=== PATIENT | female | born 1935 | race Caucasian/White ===

== ENCOUNTER → 2016-10-14 | Outpatient (CLI) | payer OTHER ==
[~2016-10-14] MED LIST: ATOR-26 PO; CHOL100010 PO; CLOP1TAB15 PO; CYCL0.052 OP; GLC500 PO; GUAI1TAB69 PO; MAGN500T15 PO; PRLSR20 PO; PYRI100T4 PO
[2016-10-14 13:08] LABS: BASO % 0.5 %; BASO ABS # 0.03 K/uL (0-0.2); COMPLETE YES; EOS % 4.5 %; IG% 0.2 %; LYMPH % 21.8 %; LYMPH ABS # 1.37 K/uL (1.2-3.4); MEAN CELL VOLUME 90.7 fL (80-100); MEAN CORPUSCULAR HEMOGLOBIN 30.6 pg (25-34); MEAN CORPUSCULAR HGB CONC 33.8 g/dl (32-36); MEAN PLATELET VOLUME 9.9 fL (7.4-10.4); MONO % 9.6 %; NEUT % 63.4 %; PLATELET COUNT 242 K/uL (130-400); RED BLOOD COUNT 4.41 M/uL (4.2-5.4); WHITE BLOOD COUNT 6.28 K/uL (4.8-10.8)
--- NOTE | 2016-10-14 13:20 | DIAGNOSTIC IMAGING REPORT ---
CHEST 2 VIEWS ROUTINE CLINICAL HISTORY: Cough. Cardiomyopathy. COMPARISON STUDY: Chest radiograph October 19, 2015. FINDINGS: A left subclavian pacer/AICD is unchanged in position. Cardiomediastinal silhouette is normal. There is no evidence of pulmonary edema. There is no consolidation. No pneumothorax or pleural effusion is present. IMPRESSION: No acute cardiopulmonary findings. Electronically signed by: Ra Vega M.D. 10/14/2016 1:19 PM Dictated Date/Time: 10/14/2016 1:18 PM
[2016-10-14 13:21] LABS: BLOOD UREA NITROGEN 16 mg/dl (7-18); BUN/CREATININE RATIO 15.9 (10-20); CALCIUM 9.4 mg/dl (8.5-10.1); CARBON DIOXIDE 33 mmol/L (21-32); CHLORIDE 103 mmol/L (98-107); GLUCOSE 144 mg/dl (70-99); SODIUM 140 mmol/L (136-145)
[2016-10-14 13:31] LABS: CKMB/CK RATIO 1.3 (0-3.0)
== END | disposition home or self-care (01) ==
LOC: C.LAB 12:22
DX: R05 Cough (principal); I42.9 Cardiomyopathy, unspecified; I51.7 Cardiomegaly; I25.2 Old myocardial infarction; R94.31 Abnormal electrocardiogram [ECG] [EKG]

== ENCOUNTER → 2017-05-08 | Outpatient (CLI) | payer OTHER ==
[2017-05-08 09:37] LABS: BASO % 0.5 %; BASO ABS # 0.03 K/uL (0-0.2); COMPLETE YES; EOS % 2.3 %; HEMATOCRIT 40.2 % (37-47); IG% 0.2 %; LYMPH % 22.8 %; LYMPH ABS # 1.37 K/uL (1.2-3.4); MEAN CELL VOLUME 93.9 fL (80-100); MEAN CORPUSCULAR HGB CONC 34.1 g/dl (32-36); MONO % 8.5 %; NEUT % 65.7 %; PLATELET COUNT 246 K/uL (130-400); RED BLOOD COUNT 4.28 M/uL (4.2-5.4); WHITE BLOOD COUNT 6.01 K/uL (4.8-10.8)
[2017-05-08 10:09] LABS: ESTIMATED AVERAGE GLUCOSE 223 mg/dl; HA1C FLAG Normal (Normal)
[2017-05-08 10:15] LABS: ALT/SGPT 23 U/L (12-78); AST/SGOT 18 U/L (15-37); BLOOD UREA NITROGEN 16 mg/dl (7-18); BUN/CREATININE RATIO 15.4 (10-20); CALCIUM 9.6 mg/dl (8.5-10.1); CARBON DIOXIDE 29 mmol/L (21-32); CHLORIDE 105 mmol/L (98-107); CHOLESTEROL 186 mg/dl (0-200); CHOLESTEROL/HDL RATIO 2.5; CREATININE 1.01 mg/dl (0.60-1.20); FERRITIN 62.4 ng/ml (8.0-388.0); GLUCOSE 171 mg/dl (70-99); HDL CHOLESTEROL 74 mg/dl; MAGNESIUM 2.1 mg/dl (1.8-2.4); POTASSIUM 3.6 mmol/L (3.5-5.1); SODIUM 140 mmol/L (136-145)
[2017-05-08 10:20] LABS: LDL CHOLESTEROL CALCULATED 83 mg/dl; THYROID STIMULATING HORMONE 0.997 uIu/ml (0.300-4.500); TRIGLYCERIDES 145 mg/dl (0-150); VERY LOW DENSITY LIPOPROT CALC 29 mg/dl
[2017-05-08 10:28] LABS: LYME DISEASE AB IGG NEG (NEG); LYME DISEASE AB IGM NEG (NEG)
--- NOTE | 2017-05-12 13:13 | CODING QUERY MEDICAL NECESSITY ---
SUPPORTING DIAGNOSIS NEEDED A supporting diagnosis is required for the test/procedure performed on this patient in order for us to be reimbursed by the patient's insurance. Please provide a supporting diagnosis for the following test/procedure listed below next to the test name along with your signature. *If there is no additional diagnosis for this patient that would support the following test/procedure please document that below next to the test/procedure. Test(s)/Procedure(s) that require a supporting diagnosis: * VITAMIN B12 DIAGNOSIS: * VITAMIN D, 25-HYDROXY DIAGNOSIS: Provider Signature: Date: Thank you Desi Ziegler [employer] Once completed, please kindly fax back to [phone] For questions please call [phone]
== END | disposition home or self-care (01) ==
LOC: C.LAB 08:53
DX: M19.90 Unspecified osteoarthritis, unspecified site (principal); R73.9 Hyperglycemia, unspecified; R53.83 Other fatigue

== ENCOUNTER → 2017-08-11 | Outpatient (CLI) | payer OTHER ==
[~2017-08-11] MED LIST changes: +ACET300T2 PO; +CHOL2000 PO; +CLOP1TAB5 PO; +CLOT1CRE80 EXT; +DEXT30TA7 PO; +GLIP2.5T11 PO; +POLYSOL4 OPB; +PRD/1 PO; +SERT50TA PO
[2017-08-11 15:28] LABS: HEMATOCRIT 41.3 % (37-47); HEMOGLOBIN 13.6 g/dL (12.0-16.0); MEAN CELL VOLUME 96.9 fL (80-100); MEAN CORPUSCULAR HEMOGLOBIN 31.9 pg (25-34); MEAN CORPUSCULAR HGB CONC 32.9 g/dl (32-36); MEAN PLATELET VOLUME 10.3 fL (7.4-10.4); PLATELET COUNT 267 K/uL (130-400); RED CELL DISTRIBUTION WIDTH CV 13.9 % (11.5-14.5); RED CELL DISTRIBUTION WIDTH SD 49.5 fL (36.4-46.3); WHITE BLOOD COUNT 6.23 K/uL (4.8-10.8)
--- NOTE | 2017-08-11 15:28 | DIAGNOSTIC IMAGING REPORT ---
CHEST 2 VIEWS ROUTINE HISTORY: 82 years-old Female PRE OP TESTING preoperative testing. No acute chest complaints. COMPARISON: Chest radiograph 10/14/2016 TECHNIQUE: PA and lateral views of the chest FINDINGS: Cardiomediastinal and hilar silhouettes are within normal limits. Atherosclerosis of the aorta. Left subclavian pacer/AICD is noted with leads overlying the right heart. Lungs are mildly hyperinflated. There is no pneumothorax, pleural effusion, focal airspace consolidation or overt pulmonary edema. The bones of the chest appear grossly intact. IMPRESSION: No acute process. The above report was generated using voice recognition software. It may contain grammatical, syntax or spelling errors. Electronically signed by: Virgilio Alvarez M.D. 08/11/2017 3:26 PM Dictated Date/Time: 08/11/2017 3:25 PM
[2017-08-11 15:33] LABS: PTT PATIENT 26.1 SECONDS (21.0-31.0)
== END | disposition home or self-care (01) ==
LOC: C.RAD 14:24
PROVIDERS: ATTEND Podiatrist Foot & Ankle Surgery
DX: Z01.810 Encounter for preprocedural cardiovascular examination (principal); Z01.818 Encounter for other preprocedural examination; Z01.812 Encounter for preprocedural laboratory examination

== ENCOUNTER → 2017-08-15 | Day surgery (SDC) | payer OTHER ==
[2017-08-14 11:31] VITALS: Ht 160 cm
[~2017-08-15] VITALS: Ht 160 cm
[~2017-08-15] MED LIST changes: +ATROPINE SULFATE 0.1 MG/ML 5ML SYR IV PRN; +BUPIVACAINE 0.5 % 5 MG/1 ML MPF 30ML VIAL ONE; +CEFAZOLIN 1000MG IV PUSH 5 ML IV SCH; -CHOL100010 PO; -CLOP1TAB15 PO; +FENTANYL CITRATE INJ 50 MCG/1 ML 2 ML VIAL IV PRN; +FENTANYL CITRATE INJ 50 MCG/1 ML 2 ML VIAL ONE; -GLC500 PO; -GUAI1TAB69 PO; +LACTATED RINGER'S 1000ML 1,000 ML IV SCH; +LIDOCAINE HCL 1% 20 ML VIAL ONE; +LIDOCAINE HCL 2% 2 ML VIAL (20MG/ML) ONE; -MAGN500T15 PO; +ONDANSETRON INJ 2 MG/ML 2 ML VIAL IV PRN; +PROPOFOL IV EMULSION 10 MG/ML 20 ML VIAL IV ONE; -PYRI100T4 PO
--- NOTE | 2017-08-15 08:54 | History & Physical Bridge - SC ---
H&P Re-Evaluation Bridge Note: I have examined the patient, reviewed the History & Physical and in the interval since the performance of the History & Physical I have noted the following changes of clinical significance: No changes noted
--- NOTE | 2017-08-15 09:30 | [facility] Post Operative Brief Note ---
Immediate Operative Summary Operative Date Aug 15, 2017. 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 Cole Registered Vascular Technologist (Rvt) Surgeon(s) none Estimated Blood Loss 2 mL Findings Consistent with Post-Op Diagnosis Specimens A: Second toe, right foot Drains None Anesthesia Type MAC Complication(s) none Disposition Accompanied Pt To Recover: no
--- NOTE | 2017-08-15 09:56 | [facility] Operative Report ---
Operative Report Operative Date Aug 15, 2017. 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 Cole Nursery Rn Surgeon(s) none Estimated Blood Loss 2ML Findings Consistent with operative report Specimens A: Second toe, right foot Anesthesia MAC with local Disposition Recovery Room / PACU Indications This is an 82 year old female patient with significant past medical history of chronic ulcer to the medial aspect of her 2nd digit right foot. Patient has had this wound for over 1 month now. She has attempted conservative treatment of this wound, consisting of offloading, and daily dressing changes by wound care, which has failed. She presented to the office last week with increased pain and worsening wound condition. Examination demonstrated the head of the proximal phalanx of the 2nd digit right foot was exposed and protruding from the wound bed. Radiographic evaluation demonstrated no signs of acute osteomyelitis, however a mild hallux valgus deformity was present and appears to be the primary cause of the wound. After discussion with the patient, including patient goals to return to ambulation as quickly as possible, recommend patient undergo 2nd digit amputation right foot. Patient was evaluated by her primary care physician and her rubber calender helper for medical clearance. The preoperative indications, planned procedure, possible benefits, risks, complications, and anticipated healing time and management were discussed in detail with the patient. She understands and elects to proceed with surgery at this time. Description of Procedure The patient was transported to the operating room via cart and placed on the operating room table in the supine position. Final verification of patient, surgery, and limb designation was performed via the time out procedure. A pneumatic ankle tourniquet was applied to the right ankle. The right limb was them scrubbed, prepped and draped in the usual aseptic manner. MAC anesthesia was then initiated by the anesthesia team. An eschmarch bandage was used to exsanguinate the limb and the pneumatic ankle tourniquet was inflated to 250 mmHg. A preop injection of lidocaine-marcaine was administered about the operative site and the procedure began as follows: Attention was directed to the 2nd digit right foot where a fish mouth type incision was made in the skin encompassing the digit. This was made down to the level of the bone. Care was taken to identify and retract all vital neurovascular structures. The proximal phalanx was then freed of all of its soft tissue and ligamentous attachments. At this time the 2nd digit was able to be complete resected in toto and passed from the operative field. This was sent to pathology as specimen. The wound was then flushed with copious amounts of normal sterile saline. Skin closure was then performed in standard fashion using 3-0 nylon sutures. A post-operative dressing consisting of adaptik, 4x4 gauze, tony and an laura wrap were applied. At this time, the pneumatic ankle tourniquet was deflated and prompt hyperemic response was noted to the remaining digits of the right foot. Patient tolerated the procedure and anesthesia well. I attest to the content of the Intraoperative Record and any orders documented therein. Any exceptions are noted below.
--- NOTE | 2017-08-15 10:08 | Discharge Instructions-SurgCtr ---
Discharge Instructions Date of Service Aug 15, 2017. Visit Reason for Visit: Right Foot Non Pressure Chronic Ulcer Discharge Discharge Diagnosis / Problem: Right 2nd digit amputation Discharge Goals Goal(s): Decrease discomfort, Improve function Activity Recommendations Activity Limitations: as noted below Lifting Limitations: until after follow-up appointment Exercise/Sports Limitations: until after follow-up appointment Shower/Bathe: keep incision dry Weightbearing Status: Right partial Anesthesia . Post Anesthesia Instructions: If you have had General Anesthesia or IV Sedation: * Do not drive today. * Resume driving when surgeon permits. * Do not make important decisions or sign legal documents today. * Call surgeon for: 1. Temperature elevations greater than 101 degrees F. 2. Uncontrollable pain. 3. Excessive bleeding. 4. Persistent nausea and vomiting. 5. Medication intolerance (nausea, vomiting or rash). * For nausea and vomiting use only clear liquids such as: tea, soda, bouillon until nausea subsides, then gradually increase diet as tolerated. * If you have any concerns or questions, call your surgeon's office. If physician is unavailable and it is an emergency, call 911 or go to the nearest emergency room. . Instructions / Follow-Up Instructions / Follow-Up Follow-up in office on Monday08/18/17 Diet Recommendations Home Diet: resume previous diet Procedures Procedures Performed: Right Second Digit Toe Amputation Pending Studies Studies pending at discharge: no Medical Emergencies . Who to Call and When: Medical Emergencies: If at any time you feel your situation is an emergency, please call 911 immediately. . Non-Emergent Contact Non-Emergency issues call your: Primary Care Provider . . "Provider Documentation" section prepared by Lesia Cole. .
--- NOTE | 2017-08-15 10:32 | Anesthesia Progress Nt - [facility] ---
Anesthesia Post Op Note Date & Time Aug 15, 2017 at 10:32 Vital Signs Pain Intensity: 0 Vital Signs Past 12 Hours Date Time Temp Pulse Resp B/P (MAP) Pulse Ox O2 Delivery O2 Flow Rate FiO2 08/15/17 09:36 36.3 60 16 137/74 (95) 97 Room Air 08/15/17 07:44 36.5 65 16 132/78 (96) 96 Room Air Notes Mental Status: alert / awake / arousable, participated in evaluation Pt Amnestic to Procedure: Yes Nausea / Vomiting: adequately controlled Pain: adequately controlled Airway Patency, RR, SpO2: stable & adequate BP & HR: stable & adequate Hydration State: stable & adequate Anesthetic Complications: no major complications apparent
[2017-08-15 11:00] VITALS: BP 144/70; PULSE 60; TEMP 36.8; O2SAT 97
--- NOTE | 2017-08-16 06:35 | DIAGNOSTIC IMAGING REPORT ---
RIGHT FOOT RADIOGRAPHS CLINICAL HISTORY: Right 2nd digit amputation COMPARISON STUDY: Right foot radiograph October 12, 2015. FINDINGS: There are are findings consistent with amputation of the second toe at the level of the proximal phalanx. No unexpected radiopaque foreign bodies present. There is a healing fracture with callus formation of the mid shaft of the right third metatarsal. 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 Extensive vascular calcification is present. A small plantar calcaneal spurring. IMPRESSION: 1. Findings consistent with right second digit amputation. 2. Healing fracture of the midshaft of the right third metatarsal. Electronically signed by: Ra Vega M.D. 08/16/2017 6:34 AM Dictated Date/Time: 08/16/2017 6:31 AM
== END | disposition home or self-care (01) ==
LOC: X.SURG 07:27
PROVIDERS: ATTEND Podiatrist Foot & Ankle Surgery
DX: E11.621 Type 2 diabetes mellitus with foot ulcer (principal); L97.519 Non-pressure chronic ulcer of other part of right foot with unspecified severity; M86.171 Other acute osteomyelitis, right ankle and foot; S92.511A Displaced fracture of proximal phalanx of right lesser toe(s), initial encounter for closed fracture; X58.XXXA Exposure to other specified factors, initial encounter; E78.00 Pure hypercholesterolemia, unspecified; I10 Essential (primary) hypertension; Z85.828 Personal history of other malignant neoplasm of skin; Z79.52 Long term (current) use of systemic steroids; Z83.3 Family history of diabetes mellitus

== ENCOUNTER → 2017-09-05 | Outpatient (CLI) | payer OTHER ==
[~2017-09-05] MED LIST changes: -ACET300T2 PO; -ATROPINE SULFATE 0.1 MG/ML 5ML SYR IV PRN; -BUPIVACAINE 0.5 % 5 MG/1 ML MPF 30ML VIAL ONE; -CEFAZOLIN 1000MG IV PUSH 5 ML IV SCH; -FENTANYL CITRATE INJ 50 MCG/1 ML 2 ML VIAL IV PRN; -FENTANYL CITRATE INJ 50 MCG/1 ML 2 ML VIAL ONE; -LACTATED RINGER'S 1000ML 1,000 ML IV SCH; -LIDOCAINE HCL 1% 20 ML VIAL ONE; -LIDOCAINE HCL 2% 2 ML VIAL (20MG/ML) ONE; -ONDANSETRON INJ 2 MG/ML 2 ML VIAL IV PRN; -PROPOFOL IV EMULSION 10 MG/ML 20 ML VIAL IV ONE
[2017-09-05 16:43] LABS: BASO % 0.5 %; BASO ABS # 0.04 K/uL (0-0.2); EOS % 1.1 %; HEMATOCRIT 34.9 % (37-47); IG# 0.02 K/uL (0.00-0.02); LYMPH % 13.9 %; LYMPH ABS # 1.22 K/uL (1.2-3.4); MEAN CELL VOLUME 93.8 fL (80-100); MEAN CORPUSCULAR HEMOGLOBIN 32.3 pg (25-34); MEAN CORPUSCULAR HGB CONC 34.4 g/dl (32-36); MONO % 9.1 %; NEUT % 75.2 %; NEUT ABS # 6.61 K/uL (1.4-6.5); PLATELET COUNT 374 K/uL (130-400); RED CELL DISTRIBUTION WIDTH CV 13.4 % (11.5-14.5); RED CELL DISTRIBUTION WIDTH SD 46.1 fL (36.4-46.3); WHITE BLOOD COUNT 8.79 K/uL (4.8-10.8)
[2017-09-05 16:56] LABS: ALT/SGPT 25 U/L (12-78); AST/SGOT 20 U/L (15-37); BLOOD UREA NITROGEN 21 mg/dl (7-18); CALCIUM 8.9 mg/dl (8.5-10.1); CARBON DIOXIDE 27 mmol/L (21-32); CREATININE 1.13 mg/dl (0.60-1.20); GLUCOSE 109 mg/dl (70-99); POTASSIUM 3.7 mmol/L (3.5-5.1); SODIUM 138 mmol/L (136-145); TRANSFERRIN 187 mg/dl (200-360)
[2017-09-06 06:08] LABS: HEMOGLOBIN A1C 6.7 % (4.5-5.6)
== END | disposition home or self-care (01) ==
LOC: C.LABBC 15:03
DX: M19.90 Unspecified osteoarthritis, unspecified site (principal); E03.9 Hypothyroidism, unspecified; E11.9 Type 2 diabetes mellitus without complications; E61.1 Iron deficiency

== ENCOUNTER → 2017-10-05 | Outpatient (CLI) | payer OTHER ==
[2017-10-05 13:42] LABS: BASO % 0.3 %; BASO ABS # 0.02 K/uL (0-0.2); EOS % 1.5 %; HEMATOCRIT 38.2 % (37-47); HEMOGLOBIN 12.7 g/dL (12.0-16.0); IG# 0.01 K/uL (0.00-0.02); LYMPH ABS # 0.84 K/uL (1.2-3.4); MEAN CELL VOLUME 94.6 fL (80-100); MEAN CORPUSCULAR HEMOGLOBIN 31.4 pg (25-34); MEAN CORPUSCULAR HGB CONC 33.2 g/dl (32-36); MEAN PLATELET VOLUME 10.6 fL (7.4-10.4); MONO ABS # 0.58 K/uL (0.11-0.59); NEUT ABS # 4.91 K/uL (1.4-6.5); PLATELET COUNT 230 K/uL (130-400); RED CELL DISTRIBUTION WIDTH CV 14.7 % (11.5-14.5); RED CELL DISTRIBUTION WIDTH SD 50.7 fL (36.4-46.3); WHITE BLOOD COUNT 6.46 K/uL (4.8-10.8)
[2017-10-06 16:04] LABS: ANA SCREEN TC 249X POSITIVE (NEGATIVE)
== END | disposition home or self-care (01) ==
LOC: C.LABBC 11:52
DX: M19.90 Unspecified osteoarthritis, unspecified site (principal)

== ENCOUNTER 2019-09-17 08:49 | Inpatient (IN) ==
[2019-09-17 10:40] LABS: Basophils # (auto) 0.02 K/uL (0-0.2); Basophils % (auto) 0.2 %; Eosinophils # (auto) 0.12 K/uL (0-0.5); Eosinophils % (auto) 1.3 %; Hematocrit (blood only) 42.9 % (37-47); Hemoglobin 14.5 g/dL (12.0-16.0); Immature Granulocytes # (auto) 0.02 K/uL (0.00-0.02); Immature Granulocytes % (auto) 0.2 %; Lymphocytes % (auto) 14.3 %; Mean Corpuscular Hgb Conc 33.8 g/dL (32-36); Mean Corpuscular Volume 94.7 fL (80-100); Mean Platelet Volume 10.2 fL (7.4-10.4); Monocytes # (auto) 0.79 K/uL (0.11-0.59); Monocytes % (auto) 8.7 %; Neutrophils # (auto) 6.82 K/uL (1.4-6.5); Neutrophils % (auto) 75.3 %; Platelet Count 270 K/uL (130-400); RDW Coefficient of Variation 13.5 % (11.5-14.5); RDW Standard Deviation 46.8 fL (36.4-46.3); Red Blood Count 4.53 M/uL (4.2-5.4); White Blood Count 9.07 K/uL (4.8-10.8)
[2019-09-17 10:46] LABS: Prothrombin Time 10.2 Seconds (9.0-12.0)
[2019-09-17 10:51] LABS: Albumin Level 3.5 gm/dl (3.4-5.0); BUN Creatinine Ratio 13.4 (10-20); Blood Urea Nitrogen 13 mg/dl (7-18); Calcium 9.9 mg/dl (8.5-10.1); Carbon Dioxide 28 mmol/L (21-32); Chloride 107 mmol/L (98-107); Creatinine Clr Calc Pharmacy 43.7 ml/min; Est GFR (African American) 64.2; Est GFR (Non-African American) 55.4; Glucose 125 mg/dl (70-99); Potassium 3.3 mmol/L (3.5-5.1); Sodium 141 mmol/L (136-145)
[2019-09-17 10:56] LABS: Alanine Aminotransferase 16 U/L (12-78); Albumin Globulin Ratio 0.8 (0.9-2); Alkaline Phosphatase 113 U/L (45-117); Aspartate Aminotransferase 23 U/L (15-37); Bilirubin,Total 0.5 mg/dl (0.2-1); Creatine Kinase 180 U/L (26-192); Globulin 4.3 gm/dl (2.5-4.0); Total Protein 7.8 gm/dl (6.4-8.2); Troponin I < 0.015 ng/ml (0-0.045)
--- NOTE | 2019-09-17 11:11 | Electrocardiogram Report ---
Test Reason : Blood Pressure : / mmHG Vent. Rate : 064 BPM Atrial Rate : 064 BPM P-R Int : 238 ms QRS Dur : 086 ms QT Int : 430 ms P-R-T Axes : 000 -30 071 degrees QTc Int : 443 ms Poor data quality, interpretation may be adversely affected Atrial-paced rhythm with prolonged AV conduction with Premature atrial complexes with Aberrant conduc tion Left axis deviation Left ventricular hypertrophy with repolarization abnormality Anteroseptal infarct (cited on or before 08-DEC-2014) Abnormal ECG When compared with ECG of 11-AUG-2017 15:33, Aberrant conduction is now Present Confirmed by Breezy Baldwin ([id number]) on 09/17/2019 11:11:02 AM Referred By: Confirmed By:Breezy Baldwin
[2019-09-17] MEDS ORDERED: IOVERSOL 100ml IV PRN (11:13)
--- NOTE | 2019-09-17 11:33 | CT Scan Report ---
HEAD CT NONCONTRAST CT DOSE: HISTORY: fall TECHNIQUE: Multiaxial CT images of the head were performed without the use of intravenous contrast. A utomated exposure control was utilized for this study. A dose lowering technique was utilized adheri ng to the principles of ALARA. Comparison: Head CT 12/09/2014. Findings: The paranasal sinuses and mastoid air cells are clear. The calvarium and skull base are int act. There is no mass, hematoma, midline shift, acute infarct. White matter hypodensity is nonspecifi c but suggestive of microvascular ischemic change. The ventricles and sulci demonstrate mild age-rela forrest involutional changes. Impression: No acute intracranial abnormality. Atrophy and microvascular ischemic changes. ACT 112: Negative or not required by law. Electronically signed by: Naseem Akbar M.D. 09/17/2019 11:32 AM
--- NOTE | 2019-09-17 11:39 | CT Scan Report ---
CT SCAN OF THE ABDOMEN AND PELVIS WITH IV CONTRAST CLINICAL HISTORY: Fall. COMPARISON STUDY: Abdominal CT dated 09/22/2015. TECHNIQUE: Following the IV administration of 94 cc of Optiray 320, CT scan of the abdomen and pelvi s is performed from the lung bases to the proximal femora. Images are reviewed in the axial, sagittal , and coronal planes. IV contrast was administered without complication. A dose lowering technique wa s utilized adhering to the principles of ALARA. The examination is degraded by motion artifact. CT DOSE: 2103.12 mGy.cm FINDINGS: Lung bases: The heart is mildly enlarged and without pericardial effusion. Pacemaker leads are noted. The coronary arteries are densely calcified. Evaluation of the lung parenchyma is degraded by motion artifact. No airspace consolidation or pleural effusion is identified. There is a small hiatal herni a. Liver: The contrast-enhanced liver is normal in size, contour, and attenuation. There is no intrahepa tic biliary ductal dilatation. The hepatic veins and portal veins are patent. Gallbladder: There are calcified gallstones with no CT evidence of acute cholecystitis. Spleen: Normal in size and attenuation. Pancreas: Mildly atrophic and grossly unremarkable. Adrenal glands: Unremarkable. Kidneys: The contrast enhanced kidneys demonstrate cortical atrophy and are without hydronephrosis. T he kidneys enhance symmetrically. Abdominal vasculature: The abdominal aorta is normal in course and caliber noting moderate to advance d atherosclerotic calcification. 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 Bowel: There are scattered colonic diverticula without CT evidence of acute diverticulitis. No bowel obstruction is seen. Fecal retention is noted in the colon. The appendix is well-visualized and norm al. Peritoneum: There is no intraperitoneal free air or abdominal ascites. There is a small fat-containin g umbilical hernia. Lymphadenopathy: None. Pelvic viscera: The bladder is distended but otherwise normal in appearance. The uterus and adnexa ar e normal as visualized. Skeletal structures: The skeletal structures are osteopenic. The lumbosacral spine, bony pelvis, and proximal femora appear intact. There is moderate to advanced lumbosacral spondylosis. There is erosiv e endplate change seen at L3-L4 with surrounding paravertebral edema. No lytic or blastic lesions are seen. IMPRESSION: 1. There is no evidence of solid organ injury in the abdomen or pelvis. 2. There is erosive endplate change seen at L3-L4 with surrounding paravertebral edema. This represen ts a significant change from 09/22/2015 and the appearance is highly concerning for discitis/osteomyeli tis. Clinical correlation will be essential. 3. Cholelithiasis. 4. Cardiomegaly and cardiac pacemaker. 5. Additional findings as above. ACT 112: Negative or not required by law. Electronically signed by: Mark Barroso M.D. 09/17/2019 11:37 AM
--- NOTE | 2019-09-17 11:41 | CT Scan Report ---
CHEST CT WITH CONTRAST CT DOSE: HISTORY: fall TECHNIQUE: Multiaxial CT images of the chest were performed following the intravenous administration of contrast. A dose lowering technique was utilized adhering to the principles of ALARA. COMPARISON: None. FINDINGS: Nondisplaced right lateral fourth through seventh rib fractures. Old, healed left-sided rib fractures. Respiratory motion artifact. The central airways appear patent. No pleural effusions. No pneumothorax. No focal lung consolidations. The lungs are essentially clear. Normal esophagus. Left-s ided pacemaker. No mediastinal hematoma. The heart is mildly enlarged. No pericardial effusion. No me diastinal or hilar lymphadenopathy. Normal caliber thoracic aorta with no evidence for dissection. Th e main pulmonary arteries are patent. IMPRESSION: Nondisplaced right lateral fourth through seventh rib fractures. No pneumothorax. ACT 112: Negative or not required by law. Electronically signed by: Naseem Akbar M.D. 09/17/2019 11:40 AM
--- NOTE | 2019-09-17 11:43 | CT Scan Report ---
CT SCAN OF THE CERVICAL SPINE CLINICAL HISTORY: Fall. COMPARISON STUDY: CT of the cervical spine dated 12/09/2014. TECHNIQUE: CT scan of the cervical spine is performed from the skull base to the upper thoracic spine . Images are reviewed in the axial, sagittal, and coronal planes. IV contrast was not administered fo r this examination. A dose lowering technique was utilized adhering to the principles of ALARA. FINDINGS: Skeletal structures: The skeletal structures are osteopenic. There is no evidence of fracture or subl uxation involving the cervical spine. Vertebral body height is maintained. There is minimal anterolis thesis seen at C3-C4, C4-C5, C5-C6. Alignment is otherwise preserved. Small anterior osteophytes are seen throughout. The odontoid process and lateral masses are intact. The atlantoaxial articulation is preserved noting productive degenerative change. The spinous processes appear intact. There is mild multilevel cervical spondylosis. Uncovertebral and facet arthropathy are seen at several levels. Ther e is chronic posttraumatic deformity of the left clavicle. Intervertebral discs: There is mild multilevel disc space narrowing, greatest at C5-C6. Central canal: Grossly patent. Soft tissues: The prevertebral and paraspinous soft tissues are within normal limits. There is athero sclerotic calcification of the carotid bulbs. Calvarium: The visualized calvarium at the skull base appears intact. Brain parenchyma: Partially visualized brain parenchyma the skull base is within normal limits noting age-related involutional change. Sinuses and mastoids: The visualized paranasal sinuses are clear. The mastoid air cells are well pneu matized. Lung apices: Clear as visualized. IMPRESSION: 1. There is no evidence of fracture or subluxation involving the cervical spine. 2. Osteopenia and spondylotic change as above. ACT 112: Negative or not required by law. Electronically signed by: Mark Barroso M.D. 09/17/2019 11:42 AM
--- NOTE | 2019-09-17 11:51 | XRay Report ---
RIGHT SHOULDER 3 VIEWS HISTORY: Right shoulder pain. fall COMPARISON: None. FINDINGS: There is no fracture or dislocation. Soft tissues are unremarkable. The right clavicle is i ntact. The bones are osteopenic. Mild osteoarthritis at the glenohumeral joint. IMPRESSION: No fracture or dislocation within the right shoulder. ACT 112: Negative or not required by law. Electronically signed by: Naseem Akbar M.D. 09/17/2019 11:50 AM
--- NOTE | 2019-09-17 11:54 | XRay Report ---
XR pelvis 1-2V routine CLINICAL HISTORY: 84 years-old Female presenting with fall. TECHNIQUE: Single frontal view of the pelvis was obtained. COMPARISON: Correlation made to CT of abdomen and pelvis performed earlier the same day. FINDINGS: Osteopenia suspected. Sacroiliac joints, pubic symphysis, and hip joints congruent. Bony pelvis intac t. Femoral necks grossly intact. Degenerative changes of the lower lumbar spine. Atherosclerotic calc ification. IMPRESSION: No acute osseous injury. ACT 112: Negative or not required by law. Electronically signed by: Aiden Ray M.D. 09/17/2019 11:52 AM
--- NOTE | 2019-09-17 11:54 | XRay Report ---
RIGHT ELBOW 3 VIEWS CLINICAL HISTORY: Fall. Right elbow pain. FINDINGS: 3 views of the right elbow are compared to study dated 01/06/2018. The examination is degrad ed by suboptimal positioning. The skeletal structures are osteopenic. No acute fracture is identified . There is extensive chronic posttraumatic deformity of the elbow joint with buttress plates in place along the radial aspect of the distal humerus and also along the dorsal aspect of the ulna. Numerous cortical lag screws are in place. The orthopedic hardware appears intact. There is no evidence of bassem int effusion. Bony overgrowth is noted on the anterior aspect of the joint space. Mild dorsal soft ti ssue swelling is noted. IMPRESSION: 1. No acute fracture is clearly identified. 2. Extensive chronic posttraumatic deformity and postoperative change as above. Electronically signed by: Mark Barroso M.D. 09/17/2019 11:52 AM
[2019-09-17] MEDS ORDERED: ACETAMINOPHEN 1,000 MG/100 ML VIAL IV STA (12:23)
[2019-09-17 12:29] LABS: Appearance Urine Clear (Clear); Color Urine Yellow; Specific Gravity Urine 1.007 (1.000-1.030)
[2019-09-17 12:30] LABS: Bilirubin Urine Negative (Negative); Blood Urine Negative (Negative); Glucose Urine UA Negative (Negative); Ketones Urine Negative (Negative); Leukocyte Esterase Urine Negative (Negative); Nitrite Urine Negative (Negative); Protein Urine Negative (Negative); Urobilinogen Urine Negative (Negative); pH Urine >= 9.0 (4.5-7.5)
--- NOTE | 2019-09-17 14:01 | History & Physical Report ---
Date of Service September 17, 2019 Assessment & Plan (1) Fracture of multiple ribs of right side: Admit to [facility] on telemetry, Vital signs every 4 hours, Manage pain with salmon calcitonin nasally, Started daptomycin 300 mg IV every 24 hours for possible osteomyelitis seen on the CT scan of the L3 and L4. Consult infectious diseases Consult orthopedic spine DVT prophylaxis heparin sodium 5000 units subcu every 12 hours Pain management with Percocet as needed 1 tablet every 4 hours Started good bowel regimen with MiraLAX daily as needed, docusate sodium 100 mg p.o. twice daily. Referred to physical and Occupational Therapy Present on Admission?: Yes (2) Lumbar discitis: As discussed above (3) Coronary artery disease: Continue clopidogrel 75 mg p.o. every afternoon Present on Admission?: Yes (4) Hyperlipidemia: Lipid panel pending, continue continue atorvastatin 80 mg p.o. every afternoon Present on Admission?: Yes (5) Hypokalemia: Potassium 3.3, will give now dose of potassium 40 mEq x 1. Continue monitoring and replenishing as needed Present on Admission?: Yes (6) Depression: Severe Alzheimer dementia Associated with depression Continue sertraline 100 mg p.o. every morning Present on Admission?: Yes (7) GERD (gastroesophageal reflux disease): Continue pantoprazole 40 mg p.o. every morning Present on Admission?: Yes History of Present Illness Chief Complaint: Status post mechanical fall Primary Care Provider: [facility] The patient is an 84 years old female with severe Alzheimer dementia, frequent falls, hyperlipidemia, coronary artery disease, depression who was brought to the emergency room with a complaint of constant right-sided rib pain that occurred following a fall this morning. Patient is at [facility]. The nurse the staff at [facility] found the patient laying on her back on the floor this morning. Since patient has severe dementia she is not able to describe how she fell, if it was caused by syncope or not or it was just mechanical fall. Nobody knows exactly how long patient was on the floor when staff found her. The staff noted that patient hit her head but there was no bruise. Patient has a bruise on her right shoulder and right elbow. She reports having a hip pain dysuria and pain in her feet. She also reports some chills. Patient denies headache, chest pain, abdominal pain, frequency, urgency. She has a pacemaker defibrillator. EKG reviewed shows atrial paced rhythm with prolonged AV conduction with premature atrial complexes with aberrant conduction. Left axis deviation. Left axis hypertrophy with repolarization abnormality. 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 When compared with ECG on August 11, 2017 abdomen contact is now present. WBCs 9.07, hemoglobin 14.5, hematocrit 42.9, platelets 270, PT 10.2, INR 1, sodium 1 41, potassium 3.3 replenished, chloride 107, carbon dioxide 28, anion gap 6, BUN 13, creatinine 0.95, GFR 55.4, hemoglobin A1c from August 29 2025.9, calcium 9.9, AST 23, ALT 16, alkaline phosphatase 113, BNP 645, albumin 3.5, globulin 4.3, TSH 1.48. Urine all negative. CT abdomen and pelvis shows erosive endplate changes seen at L3-L4 with surrounding paravertebral edema. This represents a significant change from September 22, 2015 and the appearance is highly concerning for discitis/osteomyelitis. Chest CT with contrast shows nondisplaced right lateral fourth through seventh rib fracture. No pneumothorax. Right elbow no acute fracture is clearly identified. X-rays of the pelvis. Right shoulder 3 views no fracture or dislocation within the right shoulder. Decision was made to admit patient to [facility] on telemetry for further evaluation and treatment of the fall and lumbar vertebral possibly osteomyelitis. This was discussed with [employer] who stated that kaia archer's pacemaker is not compatible with MRI and therefore we will not be able to scan her. Allergies Allergy/AdvReac Type Severity Reaction Status Date / Time aspirin Allergy Severe HIVES/ANAPH Verified 09/17/19 09:28 YLAXIS NSAIDS (Non-Steroidal Allergy Severe HIVES Verified 09/17/19 09:28 Anti-Inflamma Sulfa (Sulfonamide Allergy Intermediate HIVES Verified 09/17/19 09:28 Antibiotics) yellow dye Allergy Mild YELLOW DYE Verified 09/17/19 15:16 #5--HIVES Home Medications Home Medications Medication Instructions Recorded Confirmed Type atorvastatin 80 mg PO QPM 09/17/19 09/17/19 History cholecalciferol (vitamin D3) 5,000 unit PO MOWEFR 09/17/19 09/17/19 History [Vitamin D3] clopidogrel 75 mg PO QPM 09/17/19 09/17/19 History cyclosporine [Restasis] 1 drp OPB HS 09/17/19 09/17/19 History docusate sodium 100 mg PO BID 09/17/19 09/17/19 History melatonin 3 mg PO HS 09/17/19 09/17/19 History omeprazole 20 mg PO QAM 09/17/19 09/17/19 History sertraline 100 mg PO QAM 09/17/19 09/17/19 History Past Med/Surg History Medical History Acute cholecystitis Bilateral elbow fractures (Acute) Dementia Fracture, clavicle (Acute) Family History Other No significant family history Social History Preferred Language: Arabic Communication Ability: Effective Climatology Professor Required: No Beliefs That Will Affect Care: None Current Living Situation: Personal Care Facility Current Living Situation Comment: [facility] Other Information That Helps Us Care for You: No Feels Safe at Home: Yes Safety Concerns: Feels Safe At This Time Smoking Status: Never smoker Hx Alcohol Use: No Hx Substance Use: No Review of Systems Review of Systems: All systems reviewed & are unremarkable except as noted in HPI & below Physical Exam Constitutional: WD/WN, vitals as above well developed and + obese Eyes: PERRL, conjunctivae normal, anicteric sclerae ENMT: external ear and nose normal, oropharynx normal Neck: trachea midline, no thyromegaly Respiratory: normal respiratory effort, lungs clear to auscultation Cardiovascular: Heart Sounds: normal S1 and normal S2 Vessels: dorsalis pedis pulses present Gastrointestinal (Abdomen): normal bowel sounds, soft, nontender, no hepatosplenomegaly Musculoskeletal: no cyanosis or clubbing, extremities motor strength 5/5 Skin: Bruising of the right elbow and right shoulder Neurologic: patellar DTR's 2+ bilat, sensation intact Psychiatric: Patient is severely demented unable to follow commands Lymphatic: no cervical or axillary lymphadenopathy Results & Data Vital Signs (Past 12 Hours) Vital Signs Temp Pulse Resp BP Pulse Ox 09/17/19 13:30 60 12 146/72 H 96 09/17/19 13:00 60 18 162/70 H 99 09/17/19 12:30 60 18 161/75 H 97 03/03/20 12:00 60 14 145/94 H 99 09/17/19 11:59 60 18 99 09/17/19 11:00 60 17 171/81 H 99 09/17/19 10:33 62 16 100 09/17/19 10:32 60 24 165/97 H 100 09/17/19 10:30 60 18 98 09/17/19 10:01 66 21 177/97 H 09/17/19 10:00 60 17 09/17/19 09:49 60 20 100 09/17/19 09:31 20 186/68 H 100 09/17/19 09:30 71 16 100 09/17/19 09:02 60 13 188/68 H 98 09/17/19 09:01 60 23 182/82 H 99 09/17/19 09:00 36.3 C L 60 17 171/70 H 99 09/17/19 08:59 60 16 99 09/17/19 08:56 60 22 171/70 H 99 Code Status & VTE Plan Code Status DO NOT RESUSCITATE DO NOT INTUBATE VTE Prophylaxis Plan VTE Prophylaxis will be ordered: Yes PG Care Time/CCT Total # of Minutes Spent Total Time Spent with Patient: Total time spent is greater than 50% in coordination of care (as documented) at patient's floor/unit and/or counseling patient: Coding Level of Care Code 90703 Initial Inpt Care Lvl 3 Diagnoses Fracture of multiple ribs of right side S22.41XA Encounter type: initial encounter Fracture type: closed Lumbar discitis M46.46 Coronary artery disease I25.10 Hyperlipidemia E78.5 Hypokalemia E87.6 Depression F32.9 GERD (gastroesophageal reflux disease) K21.9 (1) Fracture of multiple ribs of right side Encounter type: initial encounter Fracture type: closed Qualified Code(s): S22.41XA - Multiple fractures of ribs, right side, initial encounter for closed fracture
[2019-09-17 14:06] LABS: Thyroid Stimulating Hormone 1.48 uIu/ml (0.300-4.500)
[2019-09-17] MEDS ORDERED: POLYETHYLENE (MIRALAX) 17 GM PACK PO PRN (14:49)
[2019-09-17] MEDS ORDERED: MAGNESIUM HYDROXIDE SUSP 30 ML UDC PO PRN (14:49)
[2019-09-17] MEDS ORDERED: ALUMINUM/MAGNESIUM SUSP 30 ML UDC PO PRN (14:49)
[2019-09-17] MEDS ORDERED: ACETAMINOPHEN 325 MG TAB PO PRN (14:49)
[2019-09-17] MEDS ORDERED: ONDANSETRON INJ 2 MG/ML 2 ML VIAL IV PRN (14:49)
[2019-09-17] MEDS: RESTASIS~ORDER AWAITING ACTION SCH (15:12)
[2019-09-17] MEDS: CALCITONIN SALMON NA 200 IU/AC 3.7 ML BTL SCH (16:15)
[2019-09-17] MEDS: DAPTOmycin 300 MG in SYRINGE 0 ML IV SCH (16:15)
--- NOTE | 2019-09-17 17:22 | Emergency Department Note ---
Entered by Sina Mae acting as a scribe for History of Present Illness General Chief complaint: Fall Time Seen by Provider: 09/17/19 09:26 Source: patient and other (nurse) Limitations: other (dementia) History of Present Illness Onset (ago): day(s) (today) Location: chest (ribs) Pain Consistency: + constant Maximum Pain Intensity: 10 Quality: + other (rib pain) Associated symptoms: + other (Positive for bruise on right shoulder and right shoulder, chills, hip pain, dysuria, abdominal pain, and pain in her feet.) The patient is an 84 year old female who presents to the emergency department with complaints of constant rib pain following a fall occurring this morning. Per nurse, staff at [facility] found the patient laying on her back on the floor this morning. She states that the patient was on the ground for 30-60 minutes before staff found her. She notes that the patient hit her head. She reports that the patient has a bruise on her right shoulder and right elbow. The patient states that she has been having chills for a week. She also complains of hip pain, dysuria, and pain in her feet. She notes that she has been having intermittent right-sided abdominal pain for a few weeks. HPI limited secondary to dementia. Home Medications Home Medications Medication Instructions Recorded Confirmed Type atorvastatin 80 mg PO QPM 09/17/19 09/17/19 History cholecalciferol (vitamin D3) 5,000 unit PO MOWEFR 09/17/19 09/17/19 History [Vitamin D3] clopidogrel 75 mg PO QPM 09/17/19 09/17/19 History cyclosporine [Restasis] 1 drp OPB HS 09/17/19 09/17/19 History docusate sodium 100 mg PO BID 09/17/19 09/17/19 History melatonin 3 mg PO HS 09/17/19 09/17/19 History omeprazole 20 mg PO QAM 09/17/19 09/17/19 History sertraline 100 mg PO QAM 09/17/19 09/17/19 History Allergies Allergy/AdvReac Type Severity Reaction Status Date / Time aspirin Allergy Severe HIVES/ANAPH Verified 09/17/19 09:28 YLAXIS NSAIDS (Non-Steroidal Allergy Severe HIVES Verified 09/17/19 09:28 Anti-Inflamma Sulfa (Sulfonamide Allergy Intermediate HIVES Verified 09/17/19 09:28 Antibiotics) yellow dye Allergy Mild YELLOW DYE Verified 09/17/19 15:16 #5--HIVES Past Med/Surg History Family History (Updated 09/17/19 @ 09:50 by Sina Mae) Other No significant family history Social History Preferred Language: Fijian Communication Ability: Effective Manager Materials Management Required: No Beliefs That Will Affect Care: None Current Living Situation: Personal Care Facility Current Living Situation Comment: [facility] Other Information That Helps Us Care for You: No Feels Safe at Home: Yes Safety Concerns: Feels Safe At This Time Smoking Status: Never smoker Hx Alcohol Use: No Hx Substance Use: No Review of Systems ROS limited secondary to dementia. Physical Exam Vital Signs Vital Signs - 24 hr 09/17/19 08:56 09/17/19 08:59 09/17/19 09:00 Temperature 36.3 C L Temperature Source Oral Pulse Rate 60 60 60 Pulse Rate from SpO2 Sensor 58 L 60 60 Respiratory Rate 22 16 17 Respiratory Effort / Characteristics Non-Labored Spontaneous Respiratory Depth Normal Respiratory Pattern Regular Blood Pressure 171/70 H 171/70 H Blood Pressure Mean 94 103 Pulse Oximetry 99 99 99 Oxygen Delivery Method Room Air Sepsis Recent Fever Within 48 Hours No Sepsis New/Unexplained Change in Mental Status No Sepsis Action Taken by Nursing No Action Required 09/17/19 09:01 09/17/19 09:02 09/17/19 09:30 Temperature Temperature Source Pulse Rate 60 60 71 Pulse Rate from SpO2 Sensor 60 60 60 Respiratory Rate 23 13 16 Respiratory Effort / Characteristics Respiratory Depth Respiratory Pattern Blood Pressure 182/82 H 188/68 H Blood Pressure Mean 95 108 Pulse Oximetry 99 98 100 Oxygen Delivery Method Sepsis Recent Fever Within 48 Hours Sepsis New/Unexplained Change in Mental Status Sepsis Action Taken by Nursing 09/17/19 09:31 09/17/19 09:49 09/17/19 10:00 Temperature Temperature Source Pulse Rate 60 60 Pulse Rate from SpO2 Sensor 60 Respiratory Rate 20 20 17 Respiratory Effort / Characteristics Respiratory Depth Respiratory Pattern Blood Pressure 186/68 H Blood Pressure Mean 133 Pulse Oximetry 100 100 Oxygen Delivery Method Room Air Sepsis Recent Fever Within 48 Hours Sepsis New/Unexplained Change in Mental Status Sepsis Action Taken by Nursing 09/17/19 10:01 09/17/19 10:30 09/17/19 10:32 Temperature Temperature Source Pulse Rate 66 60 60 Pulse Rate from SpO2 Sensor 60 60 Respiratory Rate 21 18 24 Respiratory Effort / Characteristics Respiratory Depth Respiratory Pattern Blood Pressure 177/97 H 165/97 H Blood Pressure Mean 146 129 Pulse Oximetry 98 100 Oxygen Delivery Method Sepsis Recent Fever Within 48 Hours Sepsis New/Unexplained Change in Mental Status Sepsis Action Taken by Nursing 09/17/19 10:33 09/17/19 11:00 09/17/19 11:59 Temperature Temperature Source Pulse Rate 62 60 60 Pulse Rate from SpO2 Sensor 60 60 60 Respiratory Rate 16 17 18 Respiratory Effort / Characteristics Respiratory Depth Respiratory Pattern Blood Pressure 171/81 H Blood Pressure Mean 129 Pulse Oximetry 100 99 99 Oxygen Delivery Method Sepsis Recent Fever Within 48 Hours Sepsis New/Unexplained Change in Mental Status Sepsis Action Taken by Nursing 09/17/19 12:00 09/17/19 12:30 09/17/19 13:00 Temperature Temperature Source Pulse Rate 60 60 60 Pulse Rate from SpO2 Sensor 60 60 60 Respiratory Rate 14 18 18 Respiratory Effort / Characteristics Respiratory Depth Respiratory Pattern Blood Pressure 145/94 H 161/75 H 162/70 H Blood Pressure Mean 105 93 92 Pulse Oximetry 99 97 99 Oxygen Delivery Method Sepsis Recent Fever Within 48 Hours Sepsis New/Unexplained Change in Mental Status Sepsis Action Taken by Nursing 09/17/19 13:30 Temperature Temperature Source Pulse Rate 60 Pulse Rate from SpO2 Sensor 60 Respiratory Rate 12 Respiratory Effort / Characteristics Respiratory Depth Respiratory Pattern Blood Pressure 146/72 H Blood Pressure Mean 99 Pulse Oximetry 96 Oxygen Delivery Method Sepsis Recent Fever Within 48 Hours Sepsis New/Unexplained Change in Mental Status Sepsis Action Taken by Nursing GENERAL: Awake, alert, appears fatigued, in no distress HENT: Normocephalic, atraumatic. EYES: Normal conjunctiva. Sclera non-icteric. NECK: Supple. No nuchal rigidity. RESPIRATORY: Clear to auscultation. No wheezes. Normal respiratory effort. CARDIAC: Normal rate. Normal rhythm. Extremities warm and well perfused. GI: Soft, non-distended. No tenderness to palpation. No rebound or guarding. RECTAL: Deferred. MUSCULOSKELETAL: Chest examination reveals minimal right sided tenderness. Some slight bruising of right elbow and shoulder, minimal bony tenderness, NVI right upper extremity. LOWER EXTREMITIES: Calves are equal size bilaterally and non-tender. 1+ bilateral DP pulse. NEURO: No sensory or motor deficits noted. No facial droop. No slurred speech. Mild short term memory deficits. SKIN: Warm and dry. No jaundice noted. Course Course 929: The patient was evaluated in room A2. A complete history and physical exam was performed. 1222: I reevaluated and updated the patient. I also spoke to her family. 1227: Upon reevaluation, the patient is stable. I discussed the findings and the treatment plan with the patient. She expresses agreement and understanding. I [place] [facility] [place] The patient will be evaluated for further management. Consultations Consultation #1: I reviewed the patient's case with Dr. Toribio - [place], [facility] [place] She will evaluate the patient for further management. Time: 12:27 Administered Medications Calcitonin [place] (Fortical) 1 sprays NA DAILY FIORELLA Stop: 10/17/19 15:29 Last Admin: 09/17/19 16:15 Dose: 1 sprays Documented by: [id number] Daptomycin 300 mg/ Syringe 6 mls @ 3 mls/min IV Q24H FIORELLA; Protocol Stop: 10/29/19 15:59 Last Admin: 09/17/19 16:15 Dose: 3 mls/min Documented by: [id number] Miscellaneous (Order Awaiting Action) 1 ea N/A QS FIORELLA Stop: 10/17/19 15:59 Last Admin: 09/17/19 15:12 Dose: Not Given Documented by: [id number] Discontinued Medications Acetaminophen (Ofirmev) 1,000 mg in 100 mls @ 400 mls/hr IV NOW STA Stop: 09/17/19 12:37 Last Infusion: 09/17/19 13:15 Dose: 0 mls/hr Documented by: [id number] Admin: 09/17/19 12:57 Dose: 400 mls/hr Documented by: [id number] Ioversol (Optiray 320 100ml) 94 ml IV ONCE PRN PRN Reason: Interaction Checking Stop: 09/21/19 11:12 Last Admin: 09/17/19 11:13 Dose: 94 ml Documented by: [id number] Medical Decision Making Differential Diagnosis Differential diagnoses include major intracranial, cervical, spinal, thoracic, abdominal, pelvic, neurologic injury, and UTI. Fracture, contusion, sprain, strain, laceration, abrasions included as well. Medical Records Attestation: I reviewed the patient's medical records. Home Medications Current Medication List: was personally reviewed by me Laboratory Data Attestation: I reviewed the patient's lab results. Result diagrams: 09/17/19 10:20 09/17/19 10:20 Lab Results 09/17/19 09/17/19 09/17/19 Range/Units 10:20 10:20 10:20 WBC 9.07 (4.8-10.8) K/uL RBC 4.53 (4.2-5.4) M/uL Hgb 14.5 (12.0-16.0) g/dL Hct 42.9 (37-47) % MCV 94.7 (80-100) fL MCH 32.0 (25-34) pg MCHC 33.8 (32-36) g/dL RDW Std Deviation 46.8 H (36.4-46.3) fL RDW Coeff of Jasen 13.5 (11.5-14.5) % Plt Count 270 (130-400) K/uL MPV 10.2 (7.4-10.4) fL Immature Gran % (Auto) 0.2 % Neut % (Auto) 75.3 % Lymph % (Auto) 14.3 % Todd % (Auto) 8.7 % Eos % (Auto) 1.3 % Baso % (Auto) 0.2 % Immature Gran # (Auto) 0.02 (0.00-0.02) K/uL Neut # (Auto) 6.82 H (1.4-6.5) K/uL Lymph # (Auto) 1.30 (1.2-3.4) K/uL Todd # (Auto) 0.79 H (0.11-0.59) K/uL Eos # (Auto) 0.12 (0-0.5) K/uL Baso # (Auto) 0.02 (0-0.2) K/uL ESR (0-21) mm/hr PT 10.2 (9.0-12.0) Seconds INR 1.0 (0.9-1.1) Sodium 141 (136-145) mmol/L Potassium 3.3 L (3.5-5.1) mmol/L Chloride 107 (98-107) mmol/L Carbon Dioxide 28 (21-32) mmol/L Anion Gap 6.0 (3-11) BUN 13 (7-18) mg/dl Creatinine 0.95 (0.6-1.2) mg/dl Est Cr Clr Drug Dosing 43.7 ml/min Est GFR ( Amer) 64.2 Est GFR (Non-Af Amer) 55.4 BUN/Creatinine Ratio 13.4 (10-20) Glucose 125 H (70-99) mg/dl Calcium 9.9 (8.5-10.1) mg/dl Total Bilirubin 0.5 (0.2-1) mg/dl AST 23 (15-37) U/L ALT 16 (12-78) U/L Alkaline Phosphatase 113 (45-117) U/L Total Creatine Kinase 180 (26-192) U/L Troponin I < 0.015 (0-0.045) ng/ml C-Reactive Protein (0-0.29) mg/dl NT-Pro-B Natriuret Pep (0-1800) pg/ml Total Protein 7.8 (6.4-8.2) gm/dl Albumin 3.5 (3.4-5.0) gm/dl Globulin 4.3 H (2.5-4.0) gm/dl Albumin/Globulin Ratio 0.8 L (0.9-2) TSH (0.300-4.500) uIu/ml Urine Color Urine Appearance (Clear) Urine pH (4.5-7.5) Ur Specific [place] (1.000-1.030) Urine Protein (Negative) Urine Glucose (UA) (Negative) Urine Ketones (Negative) Urine Blood (Negative) Urine Nitrite (Negative) Urine Bilirubin (Negative) Urine Urobilinogen (Negative) Ur Leukocyte Esterase (Negative) 09/17/19 09/17/19 09/17/19 Range/Units 10:20 10:20 10:20 WBC (4.8-10.8) K/uL RBC (4.2-5.4) M/uL Hgb (12.0-16.0) g/dL Hct (37-47) % MCV (80-100) fL MCH (25-34) pg MCHC (32-36) g/dL RDW Std Deviation (36.4-46.3) fL RDW Coeff of Jasen (11.5-14.5) % Plt Count (130-400) K/uL MPV (7.4-10.4) fL Immature Gran % (Auto) % Neut % (Auto) % Lymph % (Auto) % Todd % (Auto) % Eos % (Auto) % Baso % (Auto) % Immature Gran # (Auto) (0.00-0.02) K/uL Neut # (Auto) (1.4-6.5) K/uL Lymph # (Auto) (1.2-3.4) K/uL Todd # (Auto) (0.11-0.59) K/uL Eos # (Auto) (0-0.5) K/uL Baso # (Auto) (0-0.2) K/uL ESR 48 H (0-21) mm/hr PT (9.0-12.0) Seconds INR (0.9-1.1) Sodium (136-145) mmol/L Potassium (3.5-5.1) mmol/L Chloride (98-107) mmol/L Carbon Dioxide (21-32) mmol/L Anion Gap (3-11) BUN (7-18) mg/dl Creatinine (0.6-1.2) mg/dl Est Cr Clr Drug Dosing ml/min Est GFR ( Amer) Est GFR (Non-Af Amer) BUN/Creatinine Ratio (10-20) Glucose (70-99) mg/dl Calcium (8.5-10.1) mg/dl Total Bilirubin (0.2-1) mg/dl AST (15-37) U/L ALT (12-78) U/L Alkaline Phosphatase (45-117) U/L Total Creatine Kinase (26-192) U/L Troponin I (0-0.045) ng/ml C-Reactive Protein 0.53 H (0-0.29) mg/dl NT-Pro-B Natriuret Pep 645 (0-1800) pg/ml Total Protein (6.4-8.2) gm/dl Albumin (3.4-5.0) gm/dl Globulin (2.5-4.0) gm/dl Albumin/Globulin Ratio (0.9-2) TSH 1.480 (0.300-4.500) uIu/ml Urine Color Urine Appearance (Clear) Urine pH (4.5-7.5) Ur Specific [place] (1.000-1.030) Urine Protein (Negative) Urine Glucose (UA) (Negative) Urine Ketones (Negative) Urine Blood (Negative) Urine Nitrite (Negative) Urine Bilirubin (Negative) Urine Urobilinogen (Negative) Ur Leukocyte Esterase (Negative) 09/17/19 Range/Units 12:20 WBC (4.8-10.8) K/uL RBC (4.2-5.4) M/uL Hgb (12.0-16.0) g/dL Hct (37-47) % MCV (80-100) fL MCH (25-34) pg MCHC (32-36) g/dL RDW Std Deviation (36.4-46.3) fL RDW Coeff of Jasen (11.5-14.5) % Plt Count (130-400) K/uL MPV (7.4-10.4) fL Immature Gran % (Auto) % Neut % (Auto) % Lymph % (Auto) % Todd % (Auto) % Eos % (Auto) % Baso % (Auto) % Immature Gran # (Auto) (0.00-0.02) K/uL Neut # (Auto) (1.4-6.5) K/uL Lymph # (Auto) (1.2-3.4) K/uL Todd # (Auto) (0.11-0.59) K/uL Eos # (Auto) (0-0.5) K/uL Baso # (Auto) (0-0.2) K/uL ESR (0-21) mm/hr PT (9.0-12.0) Seconds INR (0.9-1.1) Sodium (136-145) mmol/L Potassium (3.5-5.1) mmol/L Chloride (98-107) mmol/L Carbon Dioxide (21-32) mmol/L Anion Gap (3-11) BUN (7-18) mg/dl Creatinine (0.6-1.2) mg/dl Est Cr Clr Drug Dosing ml/min Est GFR ( Amer) Est GFR (Non-Af Amer) BUN/Creatinine Ratio (10-20) Glucose (70-99) mg/dl Calcium (8.5-10.1) mg/dl Total Bilirubin (0.2-1) mg/dl AST (15-37) U/L ALT (12-78) U/L Alkaline Phosphatase (45-117) U/L Total Creatine Kinase (26-192) U/L Troponin I (0-0.045) ng/ml C-Reactive Protein (0-0.29) mg/dl NT-Pro-B Natriuret Pep (0-1800) pg/ml Total Protein (6.4-8.2) gm/dl Albumin (3.4-5.0) gm/dl Globulin (2.5-4.0) gm/dl Albumin/Globulin Ratio (0.9-2) TSH (0.300-4.500) uIu/ml Urine Color Yellow Urine Appearance Clear (Clear) Urine pH >= 9.0 H (4.5-7.5) Ur Specific [place] 1.007 (1.000-1.030) Urine Protein Negative (Negative) Urine Glucose (UA) Negative (Negative) Urine Ketones Negative (Negative) Urine Blood Negative (Negative) Urine Nitrite Negative (Negative) Urine Bilirubin Negative (Negative) Urine Urobilinogen Negative (Negative) Ur Leukocyte Esterase Negative (Negative) Imaging Data Radiologist's Impression: Radiology results as stated below per my review and the radiologist's interpretation: CT SCAN OF THE ABDOMEN AND PELVIS WITH IV CONTRAST FINDINGS: Lung bases: The heart is mildly enlarged and without pericardial effusion. Pacemaker leads are noted. The coronary arteries are densely calcified. Evaluation of the lung parenchyma is degraded by motion artifact. No airspace consolidation or pleural effusion is identified. There is a small hiatal hernia. Liver: The contrast-enhanced liver is normal in size, contour, and attenuation. There is no intrahepatic biliary ductal dilatation. The hepatic veins and portal veins are patent. Gallbladder: There are calcified gallstones with no CT evidence of acute cholecystitis. Spleen: Normal in size and attenuation. Pancreas: Mildly atrophic and grossly unremarkable. Adrenal glands: Unremarkable. Kidneys: The contrast enhanced kidneys demonstrate cortical atrophy and are without hydronephrosis. The kidneys enhance symmetrically. Abdominal vasculature: The abdominal aorta is normal in course and caliber noting moderate to advanced atherosclerotic calcification. 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 Bowel: There are scattered colonic diverticula without CT evidence of acute diverticulitis. No bowel obstruction is seen. Fecal retention is noted in the colon. The appendix is well-visualized and normal. Peritoneum: There is no intraperitoneal free air or abdominal ascites. There is a small fat-containing umbilical hernia. Lymphadenopathy: None. Pelvic viscera: The bladder is distended but otherwise normal in appearance. The uterus and adnexa are normal as visualized. Skeletal structures: The skeletal structures are osteopenic. The lumbosacral spine, bony pelvis, and proximal femora appear intact. There is moderate to advanced lumbosacral spondylosis. There is erosive endplate change seen at L3-L4 with surrounding paravertebral edema. No lytic or blastic lesions are seen. IMPRESSION: 1. There is no evidence of solid organ injury in the abdomen or pelvis. 2. There is erosive endplate change seen at L3-L4 with surrounding paravertebral edema. This represents a significant change from 09/22/2015 and the appearance is highly concerning for discitis/osteomyelitis. Clinical correlation will be essential. 3. Cholelithiasis. 4. Cardiomegaly and cardiac pacemaker. 5. Additional findings as above. ACT 112: Negative or not required by law. Electronically signed by: Mark Barroso M.D. 09/17/2019 11:[address] SCAN OF THE CERVICAL SPINE FINDINGS: Skeletal structures: The skeletal structures are osteopenic. There is no evidence of fracture or subluxation involving the cervical spine. Vertebral body height is maintained. There is minimal anterolisthesis seen at C3-C4, C4-C5, C5-C6. Alignment is otherwise preserved. Small anterior osteophytes are seen throughout. The odontoid process and lateral masses are intact. The atlantoaxial articulation is preserved noting productive degenerative change. The spinous processes appear intact. There is mild multilevel cervical spondylosis. Uncovertebral and facet arthropathy are seen at several levels. There is chronic posttraumatic deformity of the left clavicle. Intervertebral discs: There is mild multilevel disc space narrowing, greatest at C5-C6. Central canal: Grossly patent. Soft tissues: The prevertebral and paraspinous soft tissues are within normal limits. There is atherosclerotic calcification of the carotid bulbs. Calvarium: The visualized calvarium at the skull base appears intact. Brain parenchyma: Partially visualized brain parenchyma the skull base is within normal limits noting age-related involutional change. Sinuses and mastoids: The visualized paranasal sinuses are clear. The mastoid air cells are well pneumatized. Lung apices: Clear as visualized. IMPRESSION: 1. There is no evidence of fracture or subluxation involving the cervical spine. 2. Osteopenia and spondylotic change as above. ACT 112: Negative or not required by law. Electronically signed by: Mark Barroso M.D. 09/17/2019 11:[address] WITH CONTRAST FINDINGS: Nondisplaced right lateral fourth through seventh rib fractures. Old, healed left-sided rib fractures. Respiratory motion artifact. The central airways appear patent. No pleural effusions. No pneumothorax. No focal lung consolidations. The lungs are essentially clear. Normal esophagus. Left-sided pacemaker. No mediastinal hematoma. The heart is mildly enlarged. No pericardial effusion. No mediastinal or hilar lymphadenopathy. Normal caliber thoracic aorta with no evidence for dissection. The main pulmonary arteries are patent. IMPRESSION: Nondisplaced right lateral fourth through seventh rib fractures. No pneumothorax. ACT 112: Negative or not required by law. Electronically signed by: Naseem Akbar M.D. 09/17/2019 11:[address] NONCONTRAST Findings: The paranasal sinuses and mastoid air cells are clear. The calvarium and skull base are intact. There is no mass, hematoma, midline shift, acute infarct. White matter hypodensity is nonspecific but suggestive of microvascular ischemic change. The ventricles and sulci demonstrate mild age-related involutional changes. Impression: No acute intracranial abnormality. Atrophy and microvascular ischemic changes. ACT 112: Negative or not required by law. Electronically signed by: Naseem Akabr M.D. 09/17/2019 11:32 AM RIGHT ELBOW 3 VIEWS FINDINGS: 3 views of the right elbow are compared to study dated 01/06/2018. The examination is degraded by suboptimal positioning. The skeletal structures are osteopenic. No acute fracture is identified. There is extensive chronic posttr aumatic deformity of the elbow joint with buttress plates in place along the radial aspect of the distal humerus and also along the dorsal aspect of the ulna. Numerous cortical lag screws are in place. The orthopedic hardware appears intact. There is no evidence of joint effusion. Bony overgrowth is noted on the anterior aspect of the joint space. Mild dorsal soft tissue swelling is noted. IMPRESSION: 1. No acute fracture is clearly identified. 2. Extensive chronic posttraumatic deformity and postoperative change as above. Electronically signed by: Mark Barroso M.D. 09/17/2019 11:52 AM XR pelvis 1-2V routine FINDINGS: Osteopenia suspected. Sacroiliac joints, pubic symphysis, and hip joints congruent. Bony pelvis intact. Femoral necks grossly intact. Degenerative changes of the lower lumbar spine. Atherosclerotic calcification. IMPRESSION: No acute osseous injury. ACT 112: Negative or not required by law. Electronically signed by: Aiden Ray M.D. 09/17/2019 11:52 AM RIGHT SHOULDER 3 VIEWS FINDINGS: There is no fracture or dislocation. Soft tissues are unremarkable. The right clavicle is intact. The bones are osteopenic. Mild osteoarthritis at the glenohumeral joint. IMPRESSION: No fracture or dislocation within the right shoulder. ACT 112: Negative or not required by law. Electronically signed by: Naseem Akbar M.D. 09/17/2019 11:50 AM ECG Data Attestation: I personally reviewed and interpreted this ECG as follows: Indication: + weakness Rate (beats per minute): 64 Rhythm: + other (atrially paced) ECG [place]: + Left axis deviation ECG ST segments: no ST elevation ECG Findings: + PVCs Additional Comments: Nonspecific T wave changes. Normal QTC. Blood Pressure Blood Pressure Findings: Elevated blood pressure Blood Pressure Disposition: further management by hospitalist Head Trauma GCS Score: 15 MDM Narrative An order was placed for continuous cardiac monitoring. The monitor shows a rate of 60 with paced sinus rhythm. Patient is a 84-year-old female presenting from her facility today after sustaining a fall. Patient does have a past medical history reported of dementia, diabetes, hyperlipidemia, and atrial fibrillation. Patient was found on her back reporting she hit her head and complaining of pain everywhere. Was noted to have some bruising of the right shoulder and elbow. No LOC is reported but not the best historian. Patient states he feels a bit cold and complained over the past week of some coolness in her bilateral feet. Complaining of little bit of pain in her hips and chest. Duration is unclear. Also comp laining over several weeks maybe little bit of right lower quadrant pain. Patient also endorses some urinary symptoms. Given this a broad work-up was entertained. X-rays of the right upper extremity pelvis were obtained. CT of the head cervical spine chest abdomen pelvis was obtained. Basic labs were obtained and urine sample. Basic labs show no significant abnormality beyond some mild hypokalemia. CT scan of the head and neck showed no acute traumatic pathology. CT of the chest shows for right-sided rib fractures. There is concerns on the chest abdomen pelvis of possible discitis found in the lumbar spine. Unsure of etiology of this. Given the multiple rib fractures believe she should be admitted and monitored for pain control and possible hypoxia. Discussed with hospitalist further evaluation of the possible discitis. No it is UTI. Family and patient were updated. Given some IV Tylenol for pain. Held ABX pending further idenitifcation of possible infection as the patient is stable. Impression & Plan Fracture of multiple ribs of right side, Fall, Lumbar discitis Discharge Plan Visit Data *Final* Discharge Date/Time: 09/17/19 14:14 Chief Complaint: Fall ED Provider: Luis Daniel Weathers Discharge Problem: Fracture of multiple ribs of right side, Fall, Lumbar discitis Patient Disposition: Admitted As Inpatient Discharge Instructions Interventions: ED Discharge Assessment Last Done: 09/17/19 14:14 Discharge Problem: Fracture of multiple ribs of right side Qualifiers: Encounter type: initial encounter Fracture type: closed Qualified Code(s): S22.41XA - Multiple fractures of ribs, right side, initial encounter for closed fracture Fall Qualifiers: Encounter type: initial encounter Qualified Code(s): W19.XXXA - Unspecified fall, initial encounter The scribe's documentation has been prepared under my direction and personally reviewed by me in its entirety. I confirm that the note above accurately reflects all work, treatment, procedures, and medical decision making performed by me.
[2019-09-17] MEDS: DOCUSATE SODIUM 100 MG CAP PO SCH (19:52)
[2019-09-17] MEDS: HEPARIN SOD 5,000 UNIT/0.5 ML VIAL SQ SCH (19:52)
[2019-09-17] MEDS: CLOPIDOGREL BISULFATE 75 MG TAB PO SCH (19:52)
[2019-09-17] MEDS ORDERED: ATORVASTATIN 40 MG TAB PO SCH (21:00)
[2019-09-18] MEDS: RESTASIS~ORDER AWAITING ACTION SCH ×4 (00:11→23:59)
[2019-09-18] MEDS: OXYCODONE/ACETAMINOPHEN 5mg/325mg TAB PO PRN ×2 (01:57→10:49)
[2019-09-18] MEDS: POTASSIUM CHLORIDE 20 MEQ TABCR PO STA ×2 (01:58→06:32)
[2019-09-18 06:14] LABS: Basophils # (auto) 0.02 K/uL (0-0.2); Basophils % (auto) 0.4 %; Eosinophils # (auto) 0.18 K/uL (0-0.5); Eosinophils % (auto) 3.2 %; Hematocrit (blood only) 39.6 % (37-47); Hemoglobin 13.1 g/dL (12.0-16.0); Immature Granulocytes # (auto) 0.01 K/uL (0.00-0.02); Immature Granulocytes % (auto) 0.2 %; Mean Corpuscular Hemoglobin 31.3 pg (25-34); Mean Corpuscular Hgb Conc 33.1 g/dL (32-36); Mean Corpuscular Volume 94.5 fL (80-100); Mean Platelet Volume 10.1 fL (7.4-10.4); Neutrophils # (auto) 3.85 K/uL (1.4-6.5); Neutrophils % (auto) 69.2 %; Platelet Count 232 K/uL (130-400); RDW Coefficient of Variation 13.8 % (11.5-14.5); RDW Standard Deviation 47.7 fL (36.4-46.3); Red Blood Count 4.19 M/uL (4.2-5.4); White Blood Count 5.56 K/uL (4.8-10.8)
[2019-09-18 06:42] LABS: Albumin Level 2.9 gm/dl (3.4-5.0); BUN Creatinine Ratio 13.3 (10-20); C Reactive Protein 0.88 mg/dl (0-0.29); Creatinine Clr Calc Pharmacy 46.5 ml/min; Est GFR (African American) 70.4; Est GFR (Non-African American) 60.8; Potassium 3.2 mmol/L (3.5-5.1)
[2019-09-18 06:44] LABS: Albumin Globulin Ratio 0.7 (0.9-2); Bilirubin,Total 0.4 mg/dl (0.2-1); Globulin 3.9 gm/dl (2.5-4.0); Total Protein 6.8 gm/dl (6.4-8.2)
[2019-09-18 07:12] LABS: Estimated Average Glucose 154 mg/dl
[2019-09-18] MEDS: DOCUSATE SODIUM 100 MG CAP PO SCH ×3 (08:48→20:58)
[2019-09-18] MEDS: SERTRALINE HCL 100 MG TABLET PO SCH ×2 (08:48→10:47)
[2019-09-18] MEDS: PANTOprazole 40 MG TAB PO SCH ×2 (08:48→10:47)
[2019-09-18] MEDS: CALCITONIN SALMON NA 200 IU/AC 3.7 ML BTL SCH (08:49)
[2019-09-18] MEDS: HEPARIN SOD 5,000 UNIT/0.5 ML VIAL SQ SCH ×2 (08:50→20:57)
[2019-09-18] MEDS ORDERED: DAPTOMYCIN CONSULT ACTIVE PRN (11:36)
--- NOTE | 2019-09-18 13:16 | Hospitalist Progress Note ---
Date of Service September 18, 2019 Assessment & Plan (1) Lumbar discitis: CT a/p on 09/16 showed erosive endplate change seen at L3-L4 with surrounding paravertebral edema. This is concerning for osteomyelitis. - Unable to do MRI given her pacemaker which is NO compatible - Ortho spine and ID consulted - Continue daptomycin for now - Blood cultures not drawn prior to abx. Will order routine cultures. (2) Fracture of multiple ribs of right side: CT chest on 09/16 showed non-displaced right lateral fourth through seventh rib fractures. - Pain management with Percocet as needed 1 tablet every 4 hours - Add lidocaine patch - Started good bowel regimen with MiraLAX daily as needed, docusate sodium 100 mg p.o. twice daily. - PT/OT (3) Coronary artery disease: No chest pain today. No indication of ischemia. - Continue clopidogrel (4) Hyperlipidemia: - Hold atorvastatin while on daptomycin (5) Depression: Severe Alzheimer dementia. At baseline, she is chatting and responsive, but has trouble with a linear thought process and is only oriented to self. - Continue sertraline (6) GERD (gastroesophageal reflux disease): - Continue pantoprazole (7) DVT prophylaxis: Heparin 5000 SQ Q12h Admission and Anticipated Discharge Date Admission Date: September 17, 2019 Subjective Is upset this morning. Reports that her roommate's TV was "the old, the old, the old TV," but does tell me it was also on all night. She continues to have pain in the right rib area. Reports no fevers/chills, chest pain, shortness of breath, abdominal pain, nausea, or vomiting. Physical Exam Constitutional: WD/WN, vitals as above Eyes: EOM intact bilaterally; no conjunctival abnormality ENMT: external ear and nose normal, oropharynx normal Neck: trachea midline, no thyromegaly normal visual inspection Respiratory: normal respiratory effort, lungs clear to auscultation no respiratory distress Cardiovascular: RRR, no murmur, no edema Gastrointestinal (Abdomen): Inspection/Auscultation: abdomen normal to inspection; abdomen not distended Musculoskeletal: no cyanosis or clubbing, extremities motor strength 5/5 Skin: no rashes, warm and dry Neurologic: moves all extremities and awake Psychiatric: Orientation: alert, oriented to person, cooperative and + guarded; + not oriented to place and + not oriented to time Mood: + irritable mood Results & Data ([facility]) Vital Signs (Past 12 Hours) Vital Signs Temp Pulse Pulse Resp BP Pulse Ox Pulse Ox 09/18/19 11:00 36.3 C L 61 18 118/72 98 09/18/19 08:00 36.4 C L 77 18 129/72 97 09/18/19 07:00 58 L 09/18/19 05:34 95 PG Care Time/CCT Total # of Minutes Spent Total Time Spent with Patient: Total time spent is greater than 50% in coordination of care (as documented) at patient's floor/unit and/or counseling patient: Coding Level of Care Code 82217 Subseq Hosp Care Lvl 3 Diagnoses Lumbar discitis M46.46 Fracture of multiple ribs of right side S22.41XA Encounter type: initial encounter Fracture type: closed Coronary artery disease I25.10 Hyperlipidemia E78.5 Depression F32.9 GERD (gastroesophageal reflux disease) K21.9 DVT prophylaxis Z29.9 (1) Fracture of multiple ribs of right side Encounter type: initial encounter Fracture type: closed Qualified Code(s): S22.41XA - Multiple fractures of ribs, right side, initial encounter for closed fracture
--- NOTE | 2019-09-18 13:22 | Consultation ---
Date of Consultation September 18, 2019 Assessment & Plan (1) Lumbar discitis: 84-year-old demented female with unwitnessed fall yesterday evening brought into the emergency room for further evaluation. Possible osteomyelitis found incidentally on abdominal CT. Will order more focused testing to include lumbar CT with and without contrast for further evaluation at this specifically at the L3-4 level. Infectious disease has been consulted. Will make final recommendations based upon lumbar CT review. Current pain is along the right lateral rib cage was which is consistent with her rib fractures. . Supervising Physician Co-Signing Physician Notes Dr. Hank Banerjee History of Present Illness Tommy is a pleasantly demented 84-year-old female that we are asked to see in consultation regarding possible a possible osteomyelitis. She is a resident at the [facility] in the Alzheimer's unit. She is evaluated in the presence of her son. Son reports that there was a fall that was unwitnessed at [facility] yesterday. She was found lying on her back. She was brought to the emergency room for further evaluation. This morning she complains mostly along her right lateral rib cage. She reports that she normally ambulates independently. Denies radicular back pain or leg pain. The son denies any recent illnesses or fevers. Patient has a pacemaker therefore unable to have MRI. Attending Physician: Rudy Harp MD Allergies Allergy/AdvReac Type Severity Reaction Status Date / Time aspirin Allergy Severe HIVES/ANAPH Verified 09/17/19 09:28 YLAXIS NSAIDS (Non-Steroidal Allergy Severe HIVES Verified 09/17/19 09:28 Anti-Inflamma Sulfa (Sulfonamide Allergy Intermediate HIVES Verified 09/17/19 09:28 Antibiotics) yellow dye Allergy Mild YELLOW DYE Verified 09/17/19 15:16 #5--HIVES Home Medications Home Medications Medication Instructions Recorded Confirmed Type atorvastatin 80 mg PO QPM 09/17/19 09/17/19 History cholecalciferol (vitamin D3) 5,000 unit PO MOWEFR 09/17/19 09/17/19 History [Vitamin D3] clopidogrel 75 mg PO QPM 09/17/19 09/17/19 History cyclosporine [Restasis] 1 drp OPB HS 09/17/19 09/17/19 History docusate sodium 100 mg PO BID 09/17/19 09/17/19 History melatonin 3 mg PO HS 09/17/19 09/17/19 History omeprazole 20 mg PO QAM 09/17/19 09/17/19 History sertraline 100 mg PO QAM 09/17/19 09/17/19 History Patient History Medical History (Updated 09/20/19 @ 07:08 by Paige Nicole MD) Acute cholecystitis Bilateral elbow fractures (Acute) Dementia Diabetes mellitus Fracture, clavicle (Acute) Family History Other No significant family history Social History Preferred Language: Japanese Communication Ability: Impaired Children'S Literature Professor Required: No Beliefs That Will Affect Care: None Current Living Situation: Personal Care Facility Current Living Situation Comment: [facility] Other Information That Helps Us Care for You: No Feels Safe at Home: Yes Safety Concerns: Feels Safe At This Time Smoking Status: Never smoker Hx Alcohol Use: No Hx Substance Use: No Review of Systems Review of Systems: All systems reviewed & are unremarkable except as noted in HPI & below Physical Exam Physical Exam: Alert. Pleasant. Sitting in a chair in no obvious distress. She is nontender to palpation and percussion of the thoracolumbar spine. No ecchymosis or lacerations noted throughout the thoracolumbar spine. Motor testing is 5 5 bilateral EHL, dorsiflexion, plantarflexion, quadriceps, hamstrings, hip flexors, hip abductor's hip adductor's. No evidence of ankle clonus. Constitutional: well developed Eyes: normal visual kerns by confrontation ENMT: external ear and nose normal, oropharynx normal Neck: normal visual inspection Respiratory: normal respiratory effort Cardiovascular: Extremities: normal capillary refill Gastrointestinal (Abdomen): Inspection/Auscultation: abdomen normal to inspection Musculoskeletal: no cyanosis or clubbing, extremities motor strength 5/5 Extremities: strength 5/5 throughout Skin: no rashes, warm and dry Neurologic: patellar DTR's 2+ bilat, sensation intact moves all extremities Psychiatric: A+Ox3, euthymic affect Speech: normal rate/rhythm/volume of speech Results & Data ([facility] [place]) Vital Signs (Past 12 Hours) Vital Signs Temp Pulse Pulse Resp BP Pulse Ox Pulse Ox 09/18/19 11:00 36.3 C L 61 18 118/72 98 09/18/19 08:00 36.4 C L 77 18 129/72 97 09/18/19 07:00 58 L 09/18/19 05:[address] Scan Report Patient: TOMMY GUIDO Date: 09/17/19 MR#: [id number]: [id number] Acct ID:[id number]: [facility] Date: [address] Zip: [place] [address] Age: 84Location: ED Sex: F Room/Bed: Att Phy:Diagnosis: FALL [facility]: [facility] Fam Phy:Interpreting Phy: Mark Barroso MD Admit Phy: Ordering Phy: Luis Daniel Weathers M.D. cc: ~ CT SCAN OF THE ABDOMEN AND PELVIS WITH IV CONTRAST CLINICAL HISTORY: Fall. COMPARISON STUDY: Abdominal CT dated 09/22/2015. TECHNIQUE: Following the IV administration of 94 cc of Optiray 320, CT scan of the abdomen and pelvis is performed from the lung bases to the proximal femora. Images are reviewed in the axial, sagittal, and coronal planes. IV contrast was administered without complication. A dose lowering technique was utilized adhe ring to the principles of ALARA. The examination is degraded by motion artifact. CT DOSE: 2103.12 mGy.cm FINDINGS: Lung bases: The heart is mildly enlarged and without pericardial effusion. Pacemaker leads are noted. The coronary arteries are densely calcified. Evaluation of the lung parenchyma is degraded by motion artifact. No airspace consolidation or pleural effusion is identified. There is a small hiatal hernia. Liver: The contrast-enhanced liver is normal in size, contour, and attenuation. There is no intrahepatic biliary ductal dilatation. The hepatic veins and portal veins are patent. Gallbladder: There are calcified gallstones with no CT evidence of acute cholecystitis. Spleen: Normal in size and attenuation. Pancreas: Mildly atrophic and grossly unremarkable. Adrenal glands: Unremarkable. Kidneys: The contrast enhanced kidneys demonstrate cortical atrophy and are without hydronephrosis. The kidneys enhance symmetrically. Abdominal vasculature: The abdominal aorta is normal in course and caliber noting moderate to advanced atherosclerotic calcification. 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 Bowel: There are scattered colonic diverticula without CT evidence of acute diverticulitis. No bowel obstruction is seen. Fecal retention is noted in the colon. The appendix is well-visualized and normal. Peritoneum: There is no intraperitoneal free air or abdominal ascites. There is a small fat-containing umbilical hernia. Lymphadenopathy: None. Pelvic viscera: The bladder is distended but otherwise normal in appearance. The uterus and adnexa are normal as visualized. Skeletal structures: The skeletal structures are osteopenic. The lumbosacral spine, bony pelvis, and proximal femora appear intact. There is moderate to advanced lumbosacral spondylosis. There is erosive endplate change seen at L3-L4 with surrounding paravertebral edema. No lytic or blastic lesions are seen. IMPRESSION: 1. There is no evidence of solid organ injury in the abdomen or pelvis. 2. There is erosive endplate change seen at L3-L4 with surrounding paravertebral edema. This represents a significant change from 09/22/2015 and the appearance is highly concerning for discitis/osteomyelitis. Clinical correlation will be essential. 3. Cholelithiasis. 4. Cardiomegaly and cardiac pacemaker. 5. Additional findings as above. ACT 112: Negative or not required by law. Electronically signed by: Mark Barroso M.D. 09/17/2019 11:37 AM Dictated: 09/17/19 1124 Transcribed: 09/17/19 1124
[2019-09-18] MEDS: LIDOCAINE 5% 1 PATCH TD SCH (14:49)
[2019-09-18] MEDS: DAPTOmycin 300 MG in SYRINGE 0 ML IV SCH (16:47)
[2019-09-18] MEDS: CHOLECALCIFEROL 1,000 UNITS 25 MCG TAB PO SCH (16:48)
[2019-09-18] MEDS: CLOPIDOGREL BISULFATE 75 MG TAB PO SCH (20:58)
[2019-09-19 08:12] LABS: Basophils # (auto) 0.02 K/uL (0-0.2); Basophils % (auto) 0.4 %; Eosinophils # (auto) 0.22 K/uL (0-0.5); Eosinophils % (auto) 4.3 %; Hemoglobin 12.4 g/dL (12.0-16.0); Lymphocytes # (auto) 1.15 K/uL (1.2-3.4); Lymphocytes % (auto) 22.3 %; Mean Corpuscular Hemoglobin 31.6 pg (25-34); Mean Corpuscular Hgb Conc 32.6 g/dL (32-36); Mean Corpuscular Volume 96.7 fL (80-100); Mean Platelet Volume 10.3 fL (7.4-10.4); Monocytes # (auto) 0.52 K/uL (0.11-0.59); Monocytes % (auto) 10.1 %; Neutrophils # (auto) 3.25 K/uL (1.4-6.5); Neutrophils % (auto) 62.9 %; Platelet Count 251 K/uL (130-400); RDW Coefficient of Variation 13.8 % (11.5-14.5); RDW Standard Deviation 48.8 fL (36.4-46.3); Red Blood Count 3.93 M/uL (4.2-5.4); White Blood Count 5.16 K/uL (4.8-10.8)
[2019-09-19] MEDS: LIDOCAINE 5% 1 PATCH TD SCH (08:16)
[2019-09-19] MEDS: SERTRALINE HCL 100 MG TABLET PO SCH (08:17)
[2019-09-19] MEDS: PANTOprazole 40 MG TAB PO SCH (08:17)
[2019-09-19] MEDS: HEPARIN SOD 5,000 UNIT/0.5 ML VIAL SQ SCH ×2 (08:17→19:57)
[2019-09-19] MEDS: RESTASIS~ORDER AWAITING ACTION SCH ×3 (08:17→23:56)
[2019-09-19] MEDS: DOCUSATE SODIUM 100 MG CAP PO SCH ×2 (08:17→19:57)
[2019-09-19 08:30] LABS: Albumin Level 2.8 gm/dl (3.4-5.0); BUN Creatinine Ratio 15.8 (10-20); Creatinine Clr Calc Pharmacy 47.7 ml/min; Est GFR (African American) 74.5; Est GFR (Non-African American) 64.3; Potassium 3.4 mmol/L (3.5-5.1)
[2019-09-19 08:33] LABS: Albumin Globulin Ratio 0.7 (0.9-2); Bilirubin,Total 0.4 mg/dl (0.2-1); Globulin 3.8 gm/dl (2.5-4.0); Total Protein 6.6 gm/dl (6.4-8.2)
--- NOTE | 2019-09-19 09:11 | Infectious Disease Consult ---
Date of Consultation September 19, 2019 Assessment & Plan (1) Fall: unclear significance, no known risk factors for osteo, ESR mildly elevated but may be related to trauma and rib fractures and not due to infection. await CT spine results and blood culture results. History of Present Illness Attending Physician: Paige Nicole MD pt admitted after fall at home, found to have several rib fractures on imaging in ER. Had incidental finding of ? osteo at L3/L4 - erosive changes noted. afebrile since admission, blood cultures pending, placed emperically on datpto, tolerating well. wbc 5, ESR 51. Ortho and ID consulted due to imaging results, ct spine pending. UA negative. pt is lethargic, has underlying dementia, unable to obtain ros from patient. Allergies Allergy/AdvReac Type Severity Reaction Status Date / Time aspirin Allergy Severe HIVES/ANAPH Verified 09/17/19 09:28 YLAXIS NSAIDS (Non-Steroidal Allergy Severe HIVES Verified 09/17/19 09:28 Anti-Inflamma Sulfa (Sulfonamide Allergy Intermediate HIVES Verified 09/17/19 09:28 Antibiotics) yellow dye Allergy Mild YELLOW DYE Verified 09/17/19 15:16 #5--HIVES Home Medications Home Medications Medication Instructions Recorded Confirmed Type atorvastatin 80 mg PO QPM 09/17/19 09/17/19 History cholecalciferol (vitamin D3) 5,000 unit PO MOWEFR 09/17/19 09/17/19 History [Vitamin D3] clopidogrel 75 mg PO QPM 09/17/19 09/17/19 History cyclosporine [Restasis] 1 drp OPB HS 09/17/19 09/17/19 History docusate sodium 100 mg PO BID 09/17/19 09/17/19 History melatonin 3 mg PO HS 09/17/19 09/17/19 History omeprazole 20 mg PO QAM 09/17/19 09/17/19 History sertraline 100 mg PO QAM 09/17/19 09/17/19 History Patient History Medical History Acute cholecystitis Bilateral elbow fractures (Acute) Dementia Fracture, clavicle (Acute) Family History Other No significant family history Social History Preferred Language: Bulgarian Communication Ability: Impaired Crusher Operator Required: No Beliefs That Will Affect Care: None Current Living Situation: Personal Care Facility Current Living Situation Comment: [facility] Other Information That Helps Us Care for You: No Feels Safe at Home: Yes Safety Concerns: Feels Safe At This Time Smoking Status: Never smoker Hx Alcohol Use: No Hx Substance Use: No Review of Systems Review of Systems: Unobtainable due to cognitive status Physical Exam Constitutional: WD/WN, vitals as above Eyes: PERRL, conjunctivae normal, anicteric sclerae ENMT: external ear and nose normal, oropharynx normal Neck: normal visual inspection Respiratory: normal respiratory effort, lungs clear to auscultation normal respiratory effort; no respiratory distress Cardiovascular: Rate/Rhythm: regular rate Extremities: no pedal edema Gastrointestinal (Abdomen): Inspection/Auscultation: abdomen normal to inspection Musculoskeletal: Head/Neck/Chest: normocephalic and head atraumatic Skin: no rashes, warm and dry Psychiatric: lethargic, comfortable Results & Data ([facility]) Vital Signs (Past 12 Hours) Vital Signs Temp Pulse Pulse Resp BP Pulse Ox 09/19/19 03:30 36.6 C 60 18 150/65 H 96 09/19/19 01:59 61 PG Care Time/CCT Total # of Minutes Spent Total Time Spent with Patient: Total time spent is greater than 50% in coordination of care (as documented) at patient's floor/unit and/or counseling patient: Coding Level of Care Code 39858 Inpt Consult Level 4 Diagnoses Fall W19.XXXA Encounter type: initial encounter (1) Fall Encounter type: initial encounter Qualified Code(s): W19.XXXA - Unspecified fall, initial encounter
[2019-09-19] MEDS ORDERED: OPTIRAY 320 125ml IV PRN (13:21)
[2019-09-19] MEDS ORDERED: IOVERSOL 100ml IV PRN (13:22)
--- NOTE | 2019-09-19 15:00 | CT Scan Report ---
CT lumbar spine w con CLINICAL HISTORY: 84 years-old Female presenting with possible discitis/osteo L3-4. TECHNIQUE: Multidetector CT of the lumbar spine was performed after the administration of intravenous contrast. IV contrast: 94 mL of Optiray 320. One or more dose lowering techniques were used consiste nt with the principles of ALARA (as low as reasonably achievable), including automatic exposure contr ol, mA or kV adjustment to individual patient size, and/or use of iterative reconstruction. COMPARISON: 10/20/2008 and 09/22/2015. CT DOSE (mGy.cm): The estimated cumulative dose is 605.88 mGy.cm. FINDINGS: Fast Food Manager topogram: Vacuum disc phenomenon noted at L3-4. Normal lumbar lordosis. Vertebral bodies maintain normal height and alignment. Severe intervertebral disc height loss at several levels most prominently at L3-4 and L4-5. Extensive endplate irregularity at these levels with subjacent sclerosis. These findings are most severe at L3-4. This is new since 2008. Mild posterior spondylitic spurring. Evaluation of the soft tissues of the spinal canal demonst rate overall mild effacement at L3-4 and L4-5 secondary to disc osteophyte complexes. There is also m ixed osseous and soft tissue neural foraminal narrowing from L3-4 through L5-S1 bilaterally. No acute fracture or subluxation. No significant scoliosis. Paraspinal soft tissues demonstrate mild edema at the level of L3-4 with effacement of the paraspinal fat plane. Nonspecific subcutaneous mya a in the lumbar region. Atherosclerosis of the abdominal aorta. IMPRESSION: 1. Erosive endplate changes at L3-4 with associated mild paraspinal edema. This represents a signifi cant change since prior exams, however, the presence of vacuum disc phenomenon evident on the pictures editor t opogram argues against discitis osteomyelitis. Please ensure the absence of infectious symptoms as it is difficult to completely exclude infectious discitis osteomyelitis. Differential considerations fo r erosive endplate changes calcium pyrophosphate dihydrate deposition disease, amyloid associated art hropathy in the setting of hemodialysis, or other inflammatory arthropathies. Orthopedic consultation recommended to evaluate for the necessity of bone biopsy. Close follow-up is recommended. 2. Similar though less severe findings at L4-5. 3. Multilevel spinal canal and neural foraminal narrowing from L3-4 through L5-S1. ACT 112: Negative or not required by law. Results electronically sent 09/19/2019 2:59 PM to: Shyla Maldonado PA-C Electronically signed by: Aiden Ray M.D. 09/19/2019 2:59 PM
[2019-09-19] MEDS: DAPTOmycin 300 MG in SYRINGE 0 ML IV SCH (15:49)
--- NOTE | 2019-09-19 17:58 | Hospitalist Progress Note ---
Date of Service September 19, 2019 Assessment & Plan (1) Lumbar discitis: SUSPECTED CT a/p on 09/16 incidentally showed erosive endplate change seen at L3-L4 with surrounding paravertebral edema. This is concerning for osteomyelitis. - Unable to do MRI given her pacemaker which is NOT compatible - Ortho spine and ID consulted-Ortho ordered CT Lumbar spine which was not done until 09/18--> shows: Erosive endplate changes at L3-4 with associated mild paraspinal edema. This represents a significant change since prior exams, however, the presence of vacuum disc phenomenon evident on the forest pathology associate professor topogram argues against discitis osteomyelitis. Differential considerations for erosive endplate changes calcium pyrophosphate dihydrate deposition disease, amyloid associated arthropathy in the setting of hemodialysis, or other inflammatory arthropathies. Similar though less severe findings at L4-5 and multilevel spinal canal and neural foraminal narrowing from L3-4 through L5-S1. ESR mildly elevated for her age at 52 which could also be from rib fractures? Now down to 28. CRP only very minimally elevated at 0.88 No fevers, no back pain or radicular symptoms at all Seems less likely she truly has OM/Discitis - Continue daptomycin for now and await further input from Ortho Spine Appreciate ID consult--> continue abx and follow cultures, wait ortho input - Blood cultures not drawn prior to abx. No growth to date -holding statin while on Dapto and follow CK (2) Fracture of multiple ribs of right side: CT chest on 09/16 showed non-displaced right lateral fourth through seventh rib fractures. - Pain management with Percocet as needed 1 tablet every 4 hours-not using Doing well with this, not splinting with pain - Add lidocaine patch - Started good bowel regimen with MiraLAX daily as needed, docusate sodium 100 mg p.o. twice daily. - PT/OT (3) Coronary artery disease: No chest pain today. No indication of ischemia. - Continue clopidogrel, holding statin for Dapto use (4) Hyperlipidemia: - Hold atorvastatin while on daptomycin (5) Depression: Severe Alzheimer dementia. At baseline, she is chatting and responsive, but has trouble with a linear thought process and is only oriented to self. - Continue sertraline -supportive care resides in [facility] (6) GERD (gastroesophageal reflux disease): - Continue pantoprazole (7) Diabetes mellitus: HgbA1C now only 7.0% and on no meds at home. Has an allergy to metformin and HgbA1C was 9% in 2017 -no meds needed Glucose in AM here in prediabetes range -no need for insulin or checking glucose here (8) DVT prophylaxis: Heparin 5000 SQ Q12h Admission and Anticipated Discharge Date Admission Date: September 17, 2019 Anticipated date of discharge: 09/20/19 Subjective Pt reports feeling well. She only has some pain in the right sided ribs if she reaches overhead with the right arm and demonstrates this for me. Denies any pain in the back or lower extremities. No chest pain or SOB, no nausea or abd pain. SHe is eating her dinner when I saw her Denies any recent fevers/chills Review of Systems Review of Systems: All systems reviewed & are unremarkable except as noted in HPI & below (no radiating pain in legs, was able to walk the halls today) Physical Exam Constitutional: WD/WN, vitals as above Eyes: + anicteric sclerae Neck: trachea midline, no thyromegaly Respiratory: normal respiratory effort, lungs clear to auscultation Cardiovascular: RRR, no murmur, no edema Chest (Breasts): Chest: normal inspection of chest (and NO TTP over ribs on right) Gastrointestinal (Abdomen): normal bowel sounds, soft, nontender, no hepatosplenomegaly Musculoskeletal: Spine: lumbar spine normal to inspection; no lumbar spinal tenderness (no pain over spinous processes of T-L spine) Extremities: extremities normal to inspection; no cyanosis and no clubbing Skin: no rashes, warm and dry Neurologic: moves all extremities and awake; no focal motor deficits Psychiatric: Orientation: alert, oriented to person, oriented to place and cooperative Eye Contact: good eye contact Speech: normal rate/rhythm/volume of speech Affect: euthymic affect Lymphatic: no lymphedema Results & Data ([facility]) Vital Signs (Past 12 Hours) Vital Signs Temp Pulse Resp BP Pulse Ox 09/19/19 15:38 36.4 C L 60 18 149/75 H 99 09/19/19 11:17 36.6 C 59 L 18 126/73 96 Laboratory Results BCxs NGTD K+ 3.4 ESR down to 28 A1C 7.0% PG Care Time/CCT Total # of Minutes Spent Total Time Spent with Patient: Total time spent is greater than 50% in accreditation coordinator rdination of care (as documented) at patient's floor/unit and/or counseling patient: Coding Level of Care Code 17300 Subseq Hosp Care Lvl 2 Diagnoses Lumbar discitis M46.46 Fracture of multiple ribs of right side S22.41XA Encounter type: initial encounter Fracture type: closed Coronary artery disease I25.10 Hyperlipidemia E78.5 Depression F32.9 GERD (gastroesophageal reflux disease) K21.9 Diabetes mellitus E11.9 DVT prophylaxis Z29.9 (1) Fracture of multiple ribs of right side Encounter type: initial encounter Fracture type: closed Qualified Code(s): S22.41XA - Multiple fractures of ribs, right side, initial encounter for closed fracture
[2019-09-19] MEDS: CLOPIDOGREL BISULFATE 75 MG TAB PO SCH (19:58)
[2019-09-20] MEDS: LIDOCAINE 5% 1 PATCH TD SCH (07:41)
[2019-09-20] MEDS: DOCUSATE SODIUM 100 MG CAP PO SCH ×2 (07:41→19:29)
[2019-09-20] MEDS: SERTRALINE HCL 100 MG TABLET PO SCH (07:41)
[2019-09-20] MEDS: PANTOprazole 40 MG TAB PO SCH (07:41)
[2019-09-20] MEDS: RESTASIS~ORDER AWAITING ACTION SCH (07:42)
[2019-09-20] MEDS: HEPARIN SOD 5,000 UNIT/0.5 ML VIAL SQ SCH ×2 (07:42→19:27)
--- NOTE | 2019-09-20 12:24 | Hospitalist Progress Note ---
Date of Service September 20, 2019 Assessment & Plan (1) Lumbar discitis: CT a/p on 09/16 showed erosive endplate change seen at L3-L4 with surrounding paravertebral edema. This is concerning for osteomyelitis. - Unable to do MRI given her pacemaker which is NO compatible - Ortho spine and ID consulted - Continue daptomycin for now - Blood cultures on 09/17 were not drawn prior to abx, but are negative so far. - CT lumbar spine on 09/17 questions osteomyelitis. Awaiting ortho spine follow up. (2) Fracture of multiple ribs of right side: CT chest on 09/16 showed non-displaced right lateral fourth through seventh rib fractures. - Pain management with Percocet as needed 1 tablet every 4 hours - Added lidocaine patch which improved pain. - Started good bowel regimen with MiraLAX daily as needed, docusate sodium 100 mg p.o. twice daily. - PT/OT (3) Coronary artery disease: No chest pain today. No indication of ischemia. - Continue clopidogrel (4) Hyperlipidemia: - Hold atorvastatin while on daptomycin (5) Depression: Severe Alzheimer dementia. At baseline, she is chatting and responsive, but has trouble with a linear thought process and is only oriented to self. - Continue sertraline (6) GERD (gastroesophageal reflux disease): - Continue pantoprazole (7) DVT prophylaxis: Heparin 5000 SQ Q12h Admission and Anticipated Discharge Date Admission Date: September 17, 2019 Anticipated date of discharge: 09/20/19 Subjective Notes some thoracic back pain today, but otherwise doing well. No right rib pain. Reports no fevers/chills, chest pain, shortness of breath, abdominal pain, nausea, or vomiting. Physical Exam Constitutional: WD/WN, vitals as above Eyes: EOM intact bilaterally; no conjunctival abnormality ENMT: external ear and nose normal, oropharynx normal Neck: trachea midline, no thyromegaly normal visual inspection Respiratory: normal respiratory effort, lungs clear to auscultation no respiratory distress Cardiovascular: RRR, no murmur, no edema Gastrointestinal (Abdomen): Inspection/Auscultation: abdomen normal to inspection; abdomen not distended Musculoskeletal: no cyanosis or clubbing, extremities motor strength 5/5 Skin: no rashes, warm and dry Neurologic: moves all extremities and awake Psychiatric: Orientation: alert, oriented to person, cooperative and + guarded; + not oriented to place and + not oriented to time Mood: + irritable mood Results & Data ([facility]) Vital Signs (Past 12 Hours) Vital Signs Temp Pulse Pulse Resp BP Pulse Ox 09/20/19 09:17 60 09/20/19 07:38 36.5 C 60 18 154/66 H 95 09/20/19 04:16 36.6 C 60 18 152/77 H 92 PG Care Time/CCT Total # of Minutes Spent Total Time Spent with Patient: Total time spent is greater than 50% in coordination of care (as documented) at patient's floor/unit and/or counseling patient: Coding Level of Care Code 70062 Subseq Hosp Care Lvl 2 Diagnoses Lumbar discitis M46.46 Fracture of multiple ribs of right side S22.41XA Encounter type: initial encounter Fracture type: closed Coronary artery disease I25.10 Hyperlipidemia E78.5 Depression F32.9 GERD (gastroesophageal reflux disease) K21.9 DVT prophylaxis Z29.9 (1) Fracture of multiple ribs of right side Encounter type: initial encounter Fracture type: closed Qualified Code(s): S22.41XA - Multiple fractures of ribs, right side, initial encounter for closed fracture
--- NOTE | 2019-09-20 12:40 | Infectious Disease Progress Nt ---
Date of Service September 20, 2019 Assessment & Plan (1) Fall: unclear significance, no known risk factors for osteo, ESR mildly elevated but may be related to trauma and rib fractures and not due to infection. doubt infection, ct spine negative for discitis, would follow off of abx. I will be aw ay until 09/29, if any urgent ID needs, will need transfer. Admission and Anticipated Discharge Date Admission Date: September 17, 2019 Anticipated date of discharge: 09/20/19 Subjective remains afebrile. blood cultures negative. Results & Data ([facility]) Vital Signs (Past 12 Hours) Vital Signs Temp Pulse Pulse Resp BP Pulse Ox 09/20/19 09:17 60 09/20/19 07:38 36.5 C 60 18 154/66 H 95 09/20/19 04:16 36.6 C 60 18 152/77 H 92 Laboratory Results Microbiology 09/18/19 13:47 Blood Aerobic Blood Culture - Preliminary No growth in Aerobic bottle after 24 hours. 09/18/19 13:47 Blood Anaerobic Blood Culture - Preliminary No growth in Anaerobic bottle after 24 hours. 09/18/19 13:41 Blood Aerobic Blood Culture - Preliminary No growth in Aerobic bottle after 24 hours. 09/18/19 13:41 Blood Anaerobic Blood Culture - Preliminary No growth in Anaerobic bottle after 24 hours. PG Care Time/CCT Total # of Minutes Spent Total Time Spent with Patient: Total time spent is greater than 50% in coordination of care (as documented) at patient's floor/unit and/or counseling patient: Coding Level of Care Code 59092 Subseq Hosp Care Lvl 1 Diagnoses Fall W19.XXXA Encounter type: initial encounter (1) Fall Encounter type: initial encounter Qualified Code(s): W19.XXXA - Unspecified fall, initial encounter
--- NOTE | 2019-09-20 13:22 | Orthopedic Progress Note ---
Date of Service September 20, 2019 Assessment & Plan (1) Lumbar discitis: After review of CAT scan and labs strongly suspect changes on her imaging are degenerative in nature and not infectious. I would not limit her activity at this time. Present on Admission?: Yes Admission and Anticipated Discharge Date Admission Date: September 17, 2019 Anticipated date of discharge: 09/20/19 Results & Data ([facility]) Vital Signs (Past 12 Hours) Vital Signs Temp Pulse Pulse Resp BP Pulse Ox 09/20/19 09:17 60 09/20/19 07:38 36.5 C 60 18 154/66 H 95 09/20/19 04:16 36.6 C 60 18 152/77 H 92
[2019-09-20] MEDS: CHOLECALCIFEROL 1,000 UNITS 25 MCG TAB PO SCH (16:21)
[2019-09-20] MEDS: DAPTOmycin 300 MG in SYRINGE 0 ML IV SCH (16:21)
[2019-09-20] MEDS: CLOPIDOGREL BISULFATE 75 MG TAB PO SCH (19:27)
[2019-09-21 07:54] VITALS: TEMP 98.4; O2SAT 100
[2019-09-21] MEDS: PANTOprazole 40 MG TAB PO SCH (08:30)
[2019-09-21] MEDS: HEPARIN SOD 5,000 UNIT/0.5 ML VIAL SQ SCH (08:31)
[2019-09-21] MEDS: LIDOCAINE 5% 1 PATCH TD SCH (08:31)
[2019-09-21] MEDS: SERTRALINE HCL 100 MG TABLET PO SCH (08:31)
[2019-09-21] MEDS: DOCUSATE SODIUM 100 MG CAP PO SCH (08:33)
[2019-09-21 10:42] VITALS: BP 154/66; PULSE 67
--- NOTE | 2019-09-21 15:24 | Discharge Summary ---
Date of Service September 21, 2019 Admission HPI Per Admitting Provider The patient is an 84 years old female with severe Alzheimer dementia, frequent falls, hyperlipidemia, coronary artery disease, depression who was brought to the emergency room with a complaint of constant right-sided rib pain that occurred following a fall this morning. Patient is at [place] [facility]. The nurse the staff at [place] found the patient laying on her back on the floor this morning. Since patient has severe dementia she is not able to describe how she fell, if it was caused by syncope or not or it was just mechanical fall. Nobody knows exactly how long patient was on the floor when staff found her. The staff noted that patient hit her head but there was no bruise. Patient has a bruise on her right shoulder and right elbow. She reports having a hip pain dysuria and pain in her feet. She also reports some chills. Patient denies headache, chest pain, abdominal pain, frequency, urgency. She has a pacemaker defibrillator. EKG reviewed shows atrial paced rhythm with prolonged AV conduction with premature atrial complexes with aberrant conduction. Left axis deviation. Left axis hypertrophy with repolarization abnormality. 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 When compared with ECG on August 11, 2017 abdomen contact is now present. WBCs 9.07, hemoglobin 14.5, hematocrit 42.9, platelets 270, PT 10.2, INR 1, sodium 141, potassium 3.3 replenished, chloride 107, carbon dioxide 28, anion gap 6, BUN 13, creatinine 0.95, GFR 55.4, hemoglobin A1c from August 29 2025.9, calcium 9.9, AST 23, ALT 16, alkaline phosphatase 113, BNP 645, albumin 3.5, globulin 4.3, TSH 1.48. Urine all negative. CT abdomen and pelvis shows erosive endplate changes seen at L3-L4 with surrounding paravertebral edema. This represents a significant change from September 22, 2015 and the appearance is highly concerning for discitis/osteomyelitis. Chest CT with contrast shows nondisplaced right lateral fourth through seventh rib fracture. No pneumothorax. Right elbow no acute fracture is clearly identified. X-rays of the pelvis. Right shoulder 3 views no fracture or dislocation within the right shoulder. Decision was made to admit patient to [facility] on telemetry for further evaluation and treatment of the fall and lumbar vertebral possibly osteomyelitis. This was discussed with [facility] who stated that patient's pacemaker is not compatible with MRI and therefore we will not be able to scan her. Principal Diagnosis Fall with rib fractures. Concern for lumbar discitis/osteomyelitis, but this was ruled out/considered unlikely. Discharge Exam Constitutional WD/WN, vitals as above Eyes EOM intact bilaterally; no conjunctival abnormality ENMT external ear and nose normal, oropharynx normal Neck trachea midline, no thyromegaly normal visual inspection Respiratory normal respiratory effort, lungs clear to auscultation no respiratory distress Cardiovascular RRR, no murmur, no edema Gastrointestinal (Abdomen) Inspection/Auscultation: abdomen normal to inspection; abdomen not distended Musculoskeletal no cyanosis or clubbing, extremities motor strength 5/5 Skin no rashes, warm and dry Neurologic moves all extremities and awake Psychiatric Orientation: alert, oriented to person, cooperative and + guarded; + not oriented to place and + not oriented to time Mood: + irritable mood Discharge Data Allergies Allergy/AdvReac Type Severity Reaction Status Date / Time aspirin Allergy Severe HIVES/ANAPH Verified 09/17/19 09:28 YLAXIS NSAIDS (Non-Steroidal Allergy Severe HIVES Verified 09/17/19 09:28 Anti-Inflamma Sulfa (Sulfonamide Allergy Intermediate HIVES Verified 09/17/19 09:28 Antibiotics) yellow dye Allergy Mild YELLOW DYE Verified 09/17/19 15:16 #5--HIVES Consultations 09/17/19 12:28 ED Decision to Admit Stat 09/17/19 14:49 Consult Infectious Diseases Routine Consult Orthopedic Surgery Routine Ordered Studies 09/17/19 09:45 CT abd pelvis IV con only Stat CT cervical spine wo con Stat CT chest w con Stat CT head/brain wo con Stat 09/18/19 13:00 CT lumbar spine w con Routine Hospital Course (1) Lumbar discitis: CT a/p on 09/16 showed erosive endplate change seen at L3-L4 with surrounding paravertebral edema. This was concerning for osteomyelitis. - Unable to do MRI given her pacemaker which is NOT compatible. - Blood cultures on 09/17 were not drawn prior to abx, but are negative so far. - CT lumbar spine on 09/17 questioned osteomyelitis. Discussed with ortho spine (Dr. Banerjee) on 09/19 who feels it looks more like degeneration and not infection. Given no other signs/symptoms of infection, antibiotics were stopped. - Follow up with Dr. Banerjee in 2 weeks to ensure no further signs/symptoms of lumbar osteomyelitis/discitis. (2) Fracture of multiple ribs of right side: CT chest on 09/16 showed non-displaced right lateral fourth through seventh rib fractures. - Pain management with Percocet as needed 1 tablet every 4 hours -> Only ever needed one dose. - Added lidocaine patch which improved pain. (3) Coronary artery disease: No chest pain while admitted. No indication of ischemia. - Continue clopidogrel (4) Hyperlipidemia: - Continue atorvastatin (5) Depression: Severe Alzheimer dementia. At baseline, she is chatting and responsive, but has trouble with a linear thought process and is only oriented to self. - Continue sertraline (6) GERD (gastroesophageal reflux disease): - Continue pantoprazole (7) DVT prophylaxis: Heparin 5000 SQ Q12h Total Time Total Time Spent Total Time Spent (In Minutes): 35 Discharge Plan Discharge Items Patient Disposition: Trans [facility] Reason For Visit: FALL, POSSIBLE OSTEMYELITIS OF THE VERTEBRA Discharge Diagnosis: Fall, broken right 4th through 7th ribs. Concern for spinal osteomyelitis which was then thought to be unlikely. Activity: Resume your previous activity Non-emergency contact: Primary Care Provider and Surgeon Call non-emergency contact if: your symptoms worsen, your pain is worsening and your temperature is above 101 Follow-up/Referrals: Hank Banerjee DO [Surgeon] - (Please see Dr. Banerjee in 2 weeks to follow up on the spinal findings.) [facility] - Diet: Heart Healthy Addtl Attending Provider Instructions: Ms. Dorado was admitted after a fall at her care facility. She was found to have broken her right 4th through 7th ribs. We worked on pain control, and by the day of discharge, her pain was well-controlled with a combination of lidocaine patch on the right chest wall and normal acetaminophen (no opiates apart from one dose the day of admission, 09/18/2019). Her ribs were non- displaced, and other than pain-control, there is no further treatment needed as they heal. Her abdominal CT scan showed some concern for L3-L4 discitis/osteomyelitis. She was seen by orthopedic spine, Dr. Banerjee, who ordered a lumbar spine CT scan. This was done which showed the changes to be more related to degeneration/arthritis. She was on antibioicis for a short time and infection labs were drawn. The labs were all negative by the time of discharge. She should follow up with Dr. Banerjee in the office in 2 weeks for a recheck of her lumbar spine. At that time, he may order another CT scan of her spine to ensure no other changes. If she has any worsening lumbar back pain, any unexplained fevers, or changes in her heart rate or blood pressure, she should be examined by a doctor/[employer] WORKER/PA at [place] and Dr. Banerjee's office should be called to schedule her follow up sooner. At this time, we feel it is quite unlikely that she has a spinal infection and are not putting her on any antibiotics on discharge. Her blood cultures have been negative so far. They will be followed for a total of 5 days. If they should turn positive, she would need to be sent back to the hospital for antibiotic treatment and further care, but I do feel this is unlikely. Pending Studies at Discharge: Yes (Final blood culture results) Stand-Alone Forms: My [facility] Skilled Items Patient informed of condition?: Yes DNR: Yes Discharge Level of Care: Skilled Communicable Disease: No Discharge Prognosis: Improving Lines: None Urinary Catheter: No Medications and DC Order Prescriptions: New lidocaine 5 % Adhesive Patch,Medicated 1 patch transdermal QAM Qty: 1 RF: 0 Continued atorvastatin 80 mg tablet 80 mg PO QPM RF: 0 sertraline 100 mg tablet 100 mg PO QAM RF: 0 melatonin 3 mg Tablet 3 mg PO HS RF: 0 clopidogrel 75 mg tablet 75 mg PO QPM RF: 0 docusate sodium 100 mg Capsule 100 mg PO BID RF: 0 omeprazole 20 mg capsule,delayed release(DR/EC) 20 mg PO QAM RF: 0 Restasis 0.05 % dropperette 1 drp OPB HS RF: 0 cholecalciferol (vitamin D3) [Vitamin D3] 125 mcg (5,000 unit) Tablet 5,000 unit PO MOWEFR RF: 0 Discharge Orders: Discharge Order (Routine); Ordered 09/21/19 Ordered By: Rudy Quiñones/Other Patient Handouts: A1C Admission Data Admit Date/Time: 09/17/19 13:47 Attending Provider: Rudy Harp Admit Provider: Radha Toribio [place] Other Providers: Radha Toribio ; Lashonda Hardin ; Hank Banerjee Other Interventions: Discharge Summary Assessment (RN) Last Done: 09/21/19 10:40 DC Date/Time DO NOT enter until pt leaves facility: 09/21/19 13:31 Coding Level of Care Code D/C Day Management >30 mins Diagnoses Lumbar discitis M46.46 Fracture of multiple ribs of right side S22.41XA Encounter type: initial encounter Fracture type: closed Coronary artery disease I25.10 Hyperlipidemia E78.5 Depression F32.9 GERD (gastroesophageal reflux disease) K21.9 DVT prophylaxis Z29.9
== END 2019-09-21 13:31 | DRG 185 ==
LOC: ED 08:49 → SUATTDRO 13:47 → 2N 13:47

== ENCOUNTER 2019-12-17 17:31 | Inpatient (IN) ==
[2019-12-17] MEDS ORDERED: DIPHTHERIA/TETANUS/PERTUSSIS 0.5 ML SYR/VIAL IM ONE (17:58)
[2019-12-17] MEDS ORDERED: ACETAMINOPHEN 500 MG TAB PO STA (17:59)
--- NOTE | 2019-12-17 18:03 | Emergency Department Note ---
Impression & Plan Acute subdural hematoma, Dementia, Fall, Scalp hematoma ED Provider Note NAME: TOMMY GUIDO AGE: 84 SEX: F : 1935 ARRIVES VIA: Ambulance INFORMANT: [Patient][ems, nurses] ED PROVIDER(S): [Mark Aranda MD] CHIEF COMPLAINT: Head injury HISTORY OF PRESENT ILLNESS: The patient is an 84-year-old female with dementia. She yelled and was found on the ground, she had fallen and struck her head. There was no true loss of conscious reported. She does have a hematoma to the back of the scalp with some scant bleeding. She was sent for evaluation. The patient does complain of a moderate amount of pain in the area where she struck her head. She denies any neck pain or chest pain or extremity pain. Patient is unsure of her last tetanus immunization. Further history was unobtainable given her mental state/dementia. REVIEW OF SYSTEMS: Unobtainable given her dementia/mental state. PMHx/PSHx: See Below SOCIAL HISTORY: See Below. PHYSICAL EXAM: GENERAL: Patient is in no acute distress. HEENT: Patient has a 5 cm right posterior scalp hematoma, there was a scant amount of bleeding. A small abrasion/tiny laceration is present. No bony step- off to suggest fracture. There is no facial trauma, mucous membranes moist. NECK: No stridor, no adenopathy, nontender cervical spine, trachea is midline. LUNGS: Clear to auscultation bilaterally, no wheeze, no rhonchi, breath sounds equal. HEART: Subtle systolic murmur, regular rate and rhythm. ABDOMEN: Soft, nontender, bowel sounds positive, no hernias, no peritonitis. EXTREMITIES: No cyanosis, moderate bilateral pedal edema, full range of motion of all the joints without pain or difficulty, no signs for acute trauma. NEUROLOGIC: Confusion consistent with her dementia, awake and alert, moving all extremities. SKIN: No rash, no jaundice, no diaphoresis. DIFFERENTIAL DIAGNOSIS: Concussion, contusion, fracture, subdural hematoma, cervical spine injury, extremity or spinal trauma, epidural hematoma, intraparenchymal hemorrhage, as well as other pathologies. EMERGENCY DEPARTMENT COURSE/PROCEDURES: MEDICAL DECISION MAKING: The patient presents after striking her head. She is a DNR, she has severe dementia. On exam, I could not find evidence for injury to the back, chest, abdomen, extremities. She had a large hematoma to the back of her scalp. A CT of the neck was done, there was no fracture. CT of the brain shows a small subdural hematoma, there is a scalp hematoma noted as well, no skull fracture. The patient received oral Tylenol for pain, she was given an Adacel booster IM as we were unsure of her last tetanus immunization. I did explore the scalp hematoma, there was some scant bleeding but no laceration in need of repair/stapling. I spoke with the patient's family and power of traffic law attorney, the patient is not to have aggressive measures, she is not going to have brain surgery. Comfort care was requested. As the patient is not going to have brain surgery, as she is awake and interactive and as this area of bleeding is quite small, I do think observation at this hospital is appropriate. She can be watched overnight and undergo a repeat CT of the brain in the morning. No need for transfer as the patient is not going to undergo neurosurgery. I spoke to the patient's family at length, I did speak with case management. The on-call hospitalist has been consulted. Past Med/Surg History Medical History Acute cholecystitis Bilateral elbow fractures (Acute) Dementia (Acute) Diabetes mellitus Fracture, clavicle (Acute) Social History Preferred Language: Italian Communication Ability: Impaired Bicycle Messenger Required: No Beliefs That Will Affect Care: None Current Living Situation: Personal Care Facility Current Living Situation Comment: [facility] Feels Safe at Home: Yes Smoking Status: Unknown if ever smoked Hx Alcohol Use: No Hx Substance Use: No Allergies Allergies Allergy/AdvReac Type Severity Reaction Status Date / Time aspirin Allergy Severe HIVES/ANAPH Verified 12/17/19 20:21 YLAXIS NSAIDS (Non-Steroidal Allergy Severe HIVES Verified 12/17/19 20:21 Anti-Inflamma Sulfa (Sulfonamide Allergy Intermediate HIVES Verified 12/17/19 20:21 Antibiotics) yellow dye Allergy Mild YELLOW DYE Verified 12/17/19 20:21 #5--HIVES Home Meds Home Medications Medication Instructions Recorded Confirmed Restasis 1 drp OPB HS 09/17/19 12/17/19 atorvastatin 80 mg PO QPM 09/17/19 12/17/19 cholecalciferol (vitamin D3) 5,000 unit PO MOWEFR 09/17/19 12/17/19 [Vitamin D3] clopidogrel 75 mg PO QPM 09/17/19 12/17/19 melatonin 3 mg PO HS 09/17/19 12/17/19 lorazepam 0.5 mg PO Q8 PRN 11/13/19 12/17/19 pantoprazole [Protonix] 40 mg PO DAILY 11/13/19 12/17/19 polyethylene glycol 3350 [Miralax] 17 g PO DAILY PRN 11/13/19 12/17/19 quetiapine [Seroquel] 25 mg PO HS 11/13/19 12/17/19 sennosides-docusate sodium [Senna 1 tab-cap PO DAILY PRN 11/13/19 12/17/19 Plus] triamcinolone acetonide 1 applic TOPICAL DAILY PRN 11/13/19 12/17/19 mirtazapine 15 mg PO HS 12/17/19 12/17/19 Results & Data (ED) Vital Signs Vital Signs - 24 hr 12/17/19 17:42 12/17/19 18:43 Temperature 37 C Temperature Source Oral Pulse Rate 70 Pulse Rate [Finger] 70 62 Respiratory Rate 18 13 Blood Pressure 172/68 H Blood Pressure [Right Arm] 172/68 H 162/65 H Blood Pressure Mean 102 Blood Pressure Mean [Right Arm] 102 97 Pulse Oximetry 97 Oxygen Delivery Method Room Air Room Air Sepsis Recent Fever Within 48 Hours No Sepsis New/Unexplained Change in Mental Status No Sepsis Action Taken by Nursing No Action Required Home Medications Current Medication List: was personally reviewed by me Administered Medications Discontinued Medications Acetaminophen (Tylenol) 1,000 mg PO NOW STA Stop: 12/17/19 18:00 Last Admin: 12/17/19 18:14 Dose: 1,000 mg Documented by: [id number] Diphtheria/Pertussis/Tetanus Vacc (Adacel) 0.5 ml IM .ONCE ONE Stop: 12/17/19 17:59 Last Admin: 12/17/19 18:14 Dose: 0.5 ml Documented by: [id number] Lorazepam (Ativan) 0.5 mg in 1 mls @ 1 mls/min IV NOW STA Stop: 12/17/19 21:44 Last Admin: 12/17/19 21:52 Dose: 1 mls/min Documented by: [id number] Lidocaine (Let Gel 4%/1:100/0.5%) Confirm Administered Dose 1 ea EXT .STK-MED ONE Stop: 12/17/19 19:43 Last Admin: 12/17/19 19:51 Dose: Not Given Documented by: [id number] Lidocaine (Let Gel 4%/1:100/0.5%) 1 ea EXT NOW STA Stop: 12/17/19 19:47 Last Admin: 12/17/19 19:51 Dose: 1 ea Documented by: [id number] Imaging Data Radiologist's Impression: CERVICAL SPINE CT CT DOSE: HISTORY: Fall. Neck pain. TECHNIQUE: Multiaxial CT images of the cervical spine were performed and reformatted in the sagittal and coronal plane without the use of contrast. A dose lowering technique was utilized adhering to the principles of ALARA. COMPARISON: Cervical spine CT 11/13/2019. FINDINGS: No fractures. No subluxation. Prevertebral soft tissues and the C1-C2 interval are intact. No pneumothorax. Left-sided pacemaker wires are partially visualized. Bilateral C2-C3 facets are fused. Moderate degenerative changes throughout the remaining facets within the cervical spine. Mild disc space narrowing at C5-C6 and C6-C7. IMPRESSION: No fractures within the cervical spine. HEAD CT NONCONTRAST CT DOSE: 908.27 mGy.cm HISTORY: fall, hit head TECHNIQUE: Multiaxial CT images of the head were performed without the use of intravenous contrast. Automated exposure control was utilized for this study. A dose lowering technique was utilized adhering to the principles of ALARA. Comparison: Head CT 11/13/2019. Findings: The paranasal sinuses and mastoid air cells are clear. The calvarium and skull base are intact. There is no mass, midline shift, acute infarct. White matter hypodensity is nonspecific but suggestive of microvascular ischemic change. The ventricles and sulci demonstrate mild age-related involutional changes. Moderate sized posterior scalp hematoma. Tiny linear density within the right parafalcine location at the high convexity best seen on image 21. This measures 1 mm in thickness. This is new from the prior study and therefore favors a subdural hematoma. Impression: 1. Tiny right parafalcine subdural hematoma measuring 1 cm in thickness. No midline shift. 2. Moderate posterior scalp hematoma. Blood Pressure Blood Pressure Findings: Elevated blood pressure Blood Pressure Disposition: further management by hospitalist Head Trauma GCS Score: 14 Discharge Plan Visit Data *Final* Discharge Date/Time: 12/17/19 22:12 Chief Complaint: Fall Stated Complaint: fall/ head bump, [facility] ED Provider: Mark Aranda Discharge Problem: Acute subdural hematoma, Dementia, Fall, Scalp hematoma Patient Disposition: Admitted As Inpatient Condition: Fair Discharge Instructions Interventions: ED Discharge Assessment Last Done: 12/17/19 22:12 Discharge Problem: Dementia Qualifiers: Dementia type: unspecified type Dementia behavioral disturbance: with behavioral disturbance Qualified Code(s): F03.91 - Unspecified dementia with behavioral disturbance Fall Qualifiers: Encounter type: initial encounter Qualified Code(s): W19.XXXA - Unspecified fall, initial encounter Scalp hematoma Qualifiers: Encounter type: initial encounter Qualified Code(s): S00.03XA - Contusion of scalp, initial encounter
--- NOTE | 2019-12-17 18:43 | CT Scan Report ---
HEAD CT NONCONTRAST CT DOSE: 908.27 mGy.cm HISTORY: fall, hit head TECHNIQUE: Multiaxial CT images of the head were performed without the use of intravenous contrast. A utomated exposure control was utilized for this study. A dose lowering technique was utilized adheri ng to the principles of ALARA. Comparison: Head CT 11/13/2019. Findings: The paranasal sinuses and mastoid air cells are clear. The calvarium and skull base are int act. There is no mass, midline shift, acute infarct. White matter hypodensity is nonspecific but sugg estive of microvascular ischemic change. The ventricles and sulci demonstrate mild age-related involu tional changes. Moderate sized posterior scalp hematoma. Tiny linear density within the right parafal cine location at the high convexity best seen on image 21. This measures 1 mm in thickness. This is n ew from the prior study and therefore favors a subdural hematoma. Impression: 1. Tiny right parafalcine subdural hematoma measuring 1 cm in thickness. No midline shift. 2. Moderate posterior scalp hematoma. ACT 112: Negative or not required by law. Electronically signed by: Naseem Akbar M.D. 12/17/2019 6:42 PM
--- NOTE | 2019-12-17 18:49 | CT Scan Report ---
CERVICAL SPINE CT CT DOSE: HISTORY: Fall. Neck pain. TECHNIQUE: Multiaxial CT images of the cervical spine were performed and reformatted in the sagittal and coronal plane without the use of contrast. A dose lowering technique was utilized adhering to th e principles of ALARA. COMPARISON: Cervical spine CT 11/13/2019. FINDINGS: No fractures. No subluxation. Prevertebral soft tissues and the C1-C2 interval are intact. No pneumothorax. Left-sided pacemaker wires are partially visualized. Bilateral C2-C3 facets are fuse d. Moderate degenerative changes throughout the remaining facets within the cervical spine. Mild disc space narrowing at C5-C6 and C6-C7. IMPRESSION: No fractures within the cervical spine. ACT 112: Negative or not required by law. Electronically signed by: Naseem Akbar M.D. 12/17/2019 6:47 PM
[2019-12-17] MEDS ORDERED: LIDOCAINE/EPINEPH/TETRACAINE 1 EA SYR EXT ONE (19:42)
[2019-12-17] MEDS ORDERED: LIDOCAINE/EPINEPH/TETRACAINE 1 EA SYR EXT STA (19:46)
[2019-12-17] MEDS ORDERED: LORazepam 0.5 MG/1 ML VIAL IV STA (21:43)
[2019-12-17] MEDS ORDERED: POLYETHYLENE (MIRALAX) 17 GM PACK PO PRN (22:35)
[2019-12-17] MEDS ORDERED: ACETAMINOPHEN 325 MG TAB PO PRN (22:35)
[2019-12-17] MEDS ORDERED: DOCUSATE SODIUM/SENNA 50/8.6MG TAB PO PRN (22:38)
--- NOTE | 2019-12-18 00:27 | History & Physical Report ---
Date of Service December 17, 2019 Assessment & Plan (1) Acute subdural hematoma: 84yo C female presenting from [place] after unwitnessed fall, patient with small parafalcine SDH 1cm in thickness with no midline shift. She is on Plavix. Patient does not wish to have aggressive intervention for this issue. -Observation to medical floor -Hold Plavix -Neuro checks -Repeat CT Head in AM to assess for progression of hematoma -PT/OT evaluation -COVID-19 testing in [facility]. Of note, patient denies fevers/chills/cough/SOB. No sick contacts or positive contacts. Patient IS NOT a PUI. Present on Admission?: Yes (2) Dementia: Patient with baseline dementia. Becoming mildly agitated in the ER requiring frequent redirection, attempting to climb out of bed. Ativan 0.5mg IV given in ER with improvement in symptoms -1:1 sitter -Frequent redirection -Avoid delirium inducing agents where possible (3) GERD (gastroesophageal reflux disease): Chronic. Stable -Continue Protonix Present on Admission?: Yes (4) Depression: Chronic -Continue Remeron Present on Admission?: Yes (5) Hyperlipidemia: Chronic. Stable -Continue Atorvastatin Present on Admission?: Yes (6) Coronary artery disease: Chronic. Stable -Continue Atorvastatin -Hold Plavix F/E/N - Heplock. Monitor electrolytes with AM labs and replete if needed, Heart Healthy/Easy to Chew diet with aspiration precautions Ppx - SCDs Code - DNR/DNI Dispo -Observation to medical floor Present on Admission?: Yes Admission and Anticipated Discharge Date Admission Date: December 17, 2019 Anticipated date of discharge: 12/18/19 History of Present Illness Chief Complaint: unwitnessed fall Primary Care Provider: [facility] Tess Dorado is an 84yo C female from [facility] presenting after unwitnessed fall resulting in a small SDH. Patient is on Plavix. She thinks that she was in her room and folding clothes when she lost her balance and fell backwards, striking the back of her head on the hard floor. She does not think she lost consciousness. No additional complaints, specifically no CP/palpitations/SOB/nausea/vomiting/diarrhea or constipation. Patient has baseline dementia and is a poor historian. She was trying to get out of bed to use the restroom during most of my encounter. Became frustrated with needing to answer questions and participate in exam. ER Course: Tylenol, Lidocaine Allergies Allergy/AdvReac Type Severity Reaction Status Date / Time aspirin Allergy Severe HIVES/ANAPH Verified 12/17/19 20:21 YLAXIS NSAIDS (Non-Steroidal Allergy Severe HIVES Verified 12/17/19 20:21 Anti-Inflamma Sulfa (Sulfonamide Allergy Intermediate HIVES Verified 12/17/19 20:21 Antibiotics) yellow dye Allergy Mild YELLOW DYE Verified 12/17/19 20:21 #5--HIVES Home Medications Home Medications Medication Instructions Recorded Confirmed Type Restasis 1 drp OPB HS 09/17/19 12/17/19 History atorvastatin 80 mg PO QPM 09/17/19 12/17/19 History cholecalciferol (vitamin D3) 5,000 unit PO MOWEFR 09/17/19 12/17/19 History [Vitamin D3] clopidogrel 75 mg PO QPM 09/17/19 12/17/19 History melatonin 3 mg PO HS 09/17/19 12/17/19 History lorazepam 0.5 mg PO Q8 PRN 11/13/19 12/17/19 History pantoprazole [Protonix] 40 mg PO DAILY 11/13/19 12/17/19 History polyethylene glycol 3350 [Miralax] 17 g PO DAILY PRN 11/13/19 12/17/19 History quetiapine [Seroquel] 25 mg PO HS 11/13/19 12/17/19 History sennosides-docusate sodium [Senna 1 tab-cap PO DAILY PRN 11/13/19 12/17/19 History Plus] triamcinolone acetonide 1 applic TOPICAL DAILY PRN 11/13/19 12/17/19 History mirtazapine 15 mg PO HS 12/17/19 12/17/19 History Past Med/Surg History Medical History (Updated 12/18/19 @ 00:26 by Nia Ramirez DO) Acute cholecystitis Bilateral elbow fractures (Acute) Dementia (Acute) Diabetes mellitus Fracture, clavicle (Acute) History of pacemaker Social History Preferred Language: Samoan Communication Ability: confused Communication Ability Comment: reading and writing limited Putty Mixer Required: No Beliefs That Will Affect Care: None Current [facility]uation[facility] Current Living Situation Comment: [facility] Feels Safe at Home: Yes Smoking Status: Unknown if ever smoked Hx Alcohol Use: No Hx Substance Use: No Review of Systems Review of Systems: All systems reviewed & are unremarkable except as noted in HPI & below Physical Exam 2 Physical Exam: General: patient sitting upright in bed, asking to use the bathroom, trying to get out of bed on her own, awake, alert and oriented to self and hospital, NAD, follows commands Skin: warm, dry, small laceration on posterior head, no active bleeding, +hematoma HEENT: PERRL, EOMI, facial bones stable, anicteric sclera, conjunctiva without injection, external ear normal to inspection and nontender, nares patent, moist mucus membranes, dentition intact, no oropharyngeal lesions, neck supple, trachea midline, no LAD, no thyromegaly, no JVD Heart: +S1/S2, regular, no m/r/g Lungs: equal air entry bilaterally, no rales/rhonchi/wheezes Abd: +BS, soft, NT/ND, no masses/organomegaly/ascites Ext: warm, 2+ pulses in UE/LE bilaterally, no clubbing/cyanosis or edema Neuro: nonfocal, patient AA&O x 4, speech intact, no facial droop, moving all extremities on command with equal strength 5/5 Results & Data Results & Data ([facility]) Vital Signs (Past 12 Hours) Vital Signs Temp Pulse Pulse Resp BP BP Pulse Ox 12/17/19 22:58 36.7 C 62 18 164/75 H 94 12/17/19 22:30 36.9 C 70 16 142/67 H 95 12/17/19 22:12 61 18 127/83 94 12/17/19 18:43 62 13 162/65 H 12/17/19 17:42 37 C 70 70 18 172/68 H 172/68 H 97 Diagnostic Findings CERVICAL SPINE CT CT DOSE: HISTORY: Fall. Neck pain. TECHNIQUE: Multiaxial CT images of the cervical spine were performed and reformatted in the sagittal and coronal plane without the use of contrast. A dose lowering technique was utilized adhering to the principles of ALARA. COMPARISON: Cervical spine CT 11/13/2019. FINDINGS: No fractures. No subluxation. Prevertebral soft tissues and the C1-C2 interval are intact. No pneumothorax. Left-sided pacemaker wires are partially visualized. Bilateral C2-C3 facets are fused. Moderate degenerative changes throughout the remaining facets within the cervical spine. Mild disc space narrowing at C5-C6 and C6-C7. IMPRESSION: No fractures within the cervical spine. ACT 112: Negative or not required by law. Electronically signed by: Naseem Akbar M.D. 12/17/2019 6:47 PM Dictated: 12/17/191841 Transcribed: 12/17/191841 HEAD CT NONCONTRAST CT DOSE: 908.27 mGy.cm HISTORY: fall, hit head TECHNIQUE: Multiaxial CT images of the head were performed without the use of intravenous contrast. Automated exposure control was utilized for this study. A dose lowering technique was utilized adhering to the principles of ALARA. Comparison: Head CT 11/13/2019. HEAD CT NONCONTRAST CT DOSE: 908.27 mGy.cm HISTORY: fall, hit head TECHNIQUE: Multiaxial CT images of the head were performed without the use of intravenous contrast. Automated exposure control was utilized for this study. A dose lowering technique was utilized adhering to the principles of ALARA. Comparison: Head CT 11/13/2019. Findings: The paranasal sinuses and mastoid air cells are clear. The calvarium and skull base are intact. There is no mass, midline shift, acute infarct. White matter hypodensity is nonspecific but suggestive of microvascular ischemic change. The ventricles and sulci demonstrate mild age-related involutional changes. Moderate sized posterior scalp hematoma. Tiny linear density within the right parafalcine location at the high convexity best seen on image 21. This measures 1 mm in thickness. This is new from the prior study and therefore favors a subdural hematoma. Impression: 1. Tiny right parafalcine subdural hematoma measuring 1 cm in thickness. No midline shift. 2. Moderate posterior scalp hematoma. ACT 112: Negative or not required by law. Electronically signed by: Naseem Akbar M.D. 12/17/2019 6:42 PM Dictated: 12/17/191834 Transcribed: 12/17/191834 Electronically signed by: Naseem Akbar M.D. 12/17/2019 6:42 PM Dictated: 12/17/191834 Transcribed: 12/17/191834 Code Status & VTE Plan Code Status DNR/DNI VTE Prophylaxis Plan VTE Prophylaxis will be ordered: Yes PG Care Time/CCT Total # of Minutes Spent Total Time Spent with Patient: Total time spent is greater than 50% in coordination of care (as documented) at patient's floor/unit and/or counseling patient: Coding Level of Care Code 96081 OBS Care - Level 3 Diagnoses Acute subdural hematoma S06.5X9A Dementia F03.91 Dementia behavioral disturbance: with behavioral disturbance Dementia type: unspecified type GERD (gastroesophageal reflux disease) K21.9 Esophagitis presence: esophagitis presence not specified Depression F32.9 Depression Type: major depressive disorder Major depression recurrence: unspecified whether recurrent Active/Remission status: remission status unspecified Hyperlipidemia E78.5 Hyperlipidemia type: unspecified Coronary artery disease I25.10 Coronary Disease-Associated Artery/Lesion type: [place] artery [place] vs. transplanted heart: [place] heart Associated angina: without angina (1) Dementia Dementia behavioral disturbance: with behavioral disturbance Dementia type: unspecified type Qualified Code(s): F03.91 - Unspecified dementia with behavioral disturbance (2) GERD (gastroesophageal reflux disease) Esophagitis presence: esophagitis presence not specified Qualified Code(s): K21.9 - Gastro-esophageal reflux disease without esophagitis (3) Depression Depression Type: major depressive disorder Major depression recurrence: unspecified whether recurrent Active/Remission status: remission status unspecified Qualified Code(s): F32.9 - Major depressive disorder, single episode, unspecified (4) Hyperlipidemia Hyperlipidemia type: unspecified Qualified Code(s): E78.5 - Hyperlipidemia, unspecified (5) Coronary artery disease Coronary Disease-Associated Artery/Lesion type: [place] artery [place] vs. transplanted heart: [place] heart Associated angina: without angina Qualified Code(s): I25.10 - Atherosclerotic heart disease of [place] coronary artery without angina pectoris
[2019-12-18] MEDS: RESTASIS~ORDER AWAITING ACTION SCH ×4 (00:32→16:38)
[2019-12-18 06:53] LABS: Basophils # (auto) 0.02 K/uL (0-0.2); Basophils % (auto) 0.3 %; Eosinophils # (auto) 0.28 K/uL (0-0.5); Eosinophils % (auto) 4.7 %; Hematocrit (blood only) 36.7 % (37-47); Hemoglobin 11.9 g/dL (12.0-16.0); Immature Granulocytes # (auto) 0.01 K/uL (0.00-0.02); Immature Granulocytes % (auto) 0.2 %; Lymphocytes % (auto) 20.3 %; Mean Corpuscular Hemoglobin 30.9 pg (25-34); Mean Corpuscular Hgb Conc 32.4 g/dL (32-36); Mean Corpuscular Volume 95.3 fL (80-100); Mean Platelet Volume 9.8 fL (7.4-10.4); Monocytes % (auto) 10.2 %; Neutrophils % (auto) 64.3 %; Platelet Count 231 K/uL (130-400); RDW Coefficient of Variation 14.2 % (11.5-14.5); RDW Standard Deviation 49.6 fL (36.4-46.3); Red Blood Count 3.85 M/uL (4.2-5.4); White Blood Count 5.91 K/uL (4.8-10.8)
--- NOTE | 2019-12-18 07:02 | CT Scan Report ---
CT SCAN OF THE BRAIN WITHOUT IV CONTRAST CLINICAL HISTORY: Follow-up subdural hemorrhage. COMPARISON STUDY: CT of the brain dated 12/17/2019. TECHNIQUE: Unenhanced axial CT scan of the brain is performed from the vertex to the skull base. A do se lowering technique was utilized adhering to the principles of ALARA. CT DOSE: 614.27 mGy.cm FINDINGS: Brain parenchyma: Trace subdural hemorrhage is again seen along the midline falx. There is no associa forrest mass effect, and this has modestly decreased from yesterday. There are age-related involutional c hanges noting moderate subcortical and periventricular microangiopathic change. There is no parenchy mal hematoma, mass effect, or evidence of acute territorial ischemia by CT criteria. A small chronic lacunar infarct is noted in the right cerebellar hemisphere. Rtiter-white matter differentiation is pre served. Ventricles, sulci, cisterns: Prominent secondary to involutional change. Intracranial vasculature: There is atherosclerotic calcification of the cavernous carotid and vertebr al arteries. Calvarium: Unremarkable. Soft tissues: There is a moderate posterior scalp hematoma. Sinuses and mastoids: The visualized paranasal sinuses are clear. The mastoid air cells are well pneu matized. Orbits: The bony orbits are grossly intact. There are bilateral ocular lens implants. IMPRESSION: 1. Trace subdural hemorrhage is again seen along the midline falx. This has minimally decreased from yesterday. There is no associated mass effect. 2. No new focus of hemorrhage is identified. There is no evidence of acute territorial ischemia by CT criteria. 3. Posterior scalp hematoma. ACT 112: Negative or not required by law. Electronically signed by: Mark Barroso M.D. 12/18/2019 7:01 AM
[2019-12-18 07:26] LABS: BUN Creatinine Ratio 14.4 (10-20); Calcium 8.7 mg/dl (8.5-10.1); Creatinine Clr Calc Pharmacy 48.5 ml/min; Est GFR (Non-African American) 68.2; Magnesium 1.7 mg/dl (1.8-2.4); Phosphorus 2.9 mg/dl (2.5-4.9); Potassium 3.3 mmol/L (3.5-5.1)
[2019-12-18] MEDS ORDERED: PNEUMOCOCCAL ADMINISTRATION CHARGE ONE (08:00)
[2019-12-18] MEDS ORDERED: PNEUMOCOCCAL POLYSACCHARIDES 25 MCG/0.5 ML VIAL/SYR IM ONE (08:00)
[2019-12-18] MEDS: PANTOprazole 40 MG TAB PO SCH (09:10)
[2019-12-18] MEDS: ATORVASTATIN 40 MG TAB PO SCH (20:54)
[2019-12-18] MEDS: POTASSIUM CHLORIDE 20 MEQ TABCR PO SCH (20:55)
[2019-12-18] MEDS: QUETIAPINE FUMARATE 25 MG TABLET PO SCH (21:46)
[2019-12-18] MEDS: MELATONIN 3 MG TAB PO SCH (21:46)
[2019-12-18] MEDS: MIRTAZAPINE TAB 15 MG TAB PO SCH (21:46)
--- NOTE | 2019-12-18 22:55 | Hospitalist Progress Note ---
Date of Service December 18, 2019 Assessment & Plan (1) Acute subdural hematoma: 84yo C female presenting from [place] after unwitnessed fall, patient with small parafalcine SDH 1cm in thickness with no midline shift. She is on Plavix. Patient does not wish to have aggressive intervention for this issue. -admitted to medical floor -Hold Plavix -Neuro checks -Repeat CT Head showed mildly decrease size of subdural hematoma. -PT/OT evaluation -COVID-19 testing in anticipation for return to [facility]. Of note, patient denies fevers/chills/cough/SOB. No sick contacts or positive contacts. Patient IS NOT a PUI. (2) Dementia: Patient with baseline dementia. Becoming mildly agitated in the ER requiring frequent redirection, attempting to climb out of bed. Ativan 0.5mg IV given in ER with improvement in symptoms -1:1 sitter -Frequent redirection -Avoid delirium inducing agents where possible (3) GERD (gastroesophageal reflux disease): Chronic. Stable -Continue Protonix (4) Depression: Chronic -Continue Remeron (5) Hyperlipidemia: Chronic. Stable -Continue Atorvastatin (6) Coronary artery disease: Chronic. Stable -Continue Atorvastatin -Hold Plavix F/E/N - Heplock. Monitor electrolytes with AM labs and replete if needed, Heart Healthy/Easy to Chew diet with aspiration precautions Ppx - SCDs Code - DNR/DNI Admission and Anticipated Discharge Date Admission Date: December 18, 2019 Subjective Patient is confused. Patient does not provide significant history. Review of Systems Review of Systems: Unobtainable due to cognitive status Physical Exam Physical Exam: General: patient sitting upright in bed, asking to use the bathroom, trying to get out of bed on her own, awake, alert and oriented to self, NAD, follows commands Skin: warm, dry, small laceration on posterior head, no active bleeding, +hematoma HEENT: PERRL, EOMI, facial bones stable, anicteric sclera, conjunctiva without injection, external ear normal to inspection and nontender, nares patent, moist mucus membranes, dentition intact, no oropharyngeal lesions, neck supple, trachea midline, no LAD, no thyromegaly, no JVD Heart: +S1/S2, regular, no m/r/g Lungs: equal air entry bilaterally, no rales/rhonchi/wheezes Abd: +BS, soft, NT/ND, no masses/organomegaly/ascites Ext: warm, 2+ pulses in UE/LE bilaterally, no clubbing/cyanosis or edema Neuro: nonfocal, speech intact, no facial droop, moving all extremities on command with equal strength 5/5 Results & Data Results & Data ([facility]) Vital Signs (Past 12 Hours) Vital Signs Temp Pulse Resp BP Pulse Ox 12/18/19 16:46 36.6 C 64 18 139/79 94 PG Care Time/CCT Total # of Minutes Spent Total Time Spent with Patient: Total time spent is greater than 50% in coordination of care (as documented) at patient's floor/unit and/or counseling patient: Coding Level of Care Code 42192 Subseq Hosp Care Lvl 3 Diagnoses Acute subdural hematoma S06.5X9A Dementia F03.91 Dementia behavioral disturbance: with behavioral disturbance Dementia type: unspecified type GERD (gastroesophageal reflux disease) K21.9 Esophagitis presence: esophagitis presence not specified Depression F32.9 Active/Remission status: remission status unspecified Depression Type: major depressive disorder Major depression recurrence: unspecified whether recurrent Hyperlipidemia E78.5 Hyperlipidemia type: unspecified Coronary artery disease I25.10 Associated angina: without angina Coronary Disease-Associated Artery/Lesion type: [place] artery [place] vs. transplanted heart: [place] heart Time Spent (min) 35 (1) Coronary artery disease Associated angina: without angina Coronary Disease-Associated Artery/Lesion type: [place] artery [place] vs. transplanted heart: [place] heart Qualified Code(s): I25.10 - Atherosclerotic heart disease of [place] coronary artery without angina pectoris (2) Dementia Dementia behavioral disturbance: with behavioral disturbance Dementia type: unspecified type Qualified Code(s): F03.91 - Unspecified dementia with behavioral disturbance (3) Depression Active/Remission status: remission status unspecified Depression Type: major depressive disorder Major depression recurrence: unspecified whether recurrent Qualified Code(s): F32.9 - Major depressive disorder, single episode, unspecified (4) Hyperlipidemia Hyperlipidemia type: unspecified Qualified Code(s): E78.5 - Hyperlipidemia, unspecified (5) GERD (gastroesophageal reflux disease) Esophagitis presence: esophagitis presence not specified Qualified Code(s): K21.9 - Gastro-esophageal reflux disease without esophagitis
[2019-12-19] MEDS: RESTASIS~ORDER AWAITING ACTION SCH ×4 (01:52→23:36)
[2019-12-19] MEDS: PANTOprazole 40 MG TAB PO SCH (08:40)
[2019-12-19] MEDS: POTASSIUM CHLORIDE 20 MEQ TABCR PO SCH ×2 (08:40→21:00)
[2019-12-19] MEDS: MELATONIN 3 MG TAB PO SCH (21:00)
[2019-12-19] MEDS: ATORVASTATIN 40 MG TAB PO SCH (21:00)
[2019-12-19] MEDS: QUETIAPINE FUMARATE 25 MG TABLET PO SCH (21:00)
[2019-12-19] MEDS: MIRTAZAPINE TAB 15 MG TAB PO SCH (21:00)
--- NOTE | 2019-12-19 22:21 | Hospitalist Progress Note ---
Date of Service December 19, 2019 Assessment & Plan (1) Acute subdural hematoma: 84yo C female presenting from [place] after unwitnessed fall, patient with small parafalcine SDH 1cm in thickness with no midline shift. She is on Plavix. Patient does not wish to have aggressive intervention for this issue. -admitted to medical floor -Hold Plavix -Neuro checks -Repeat CT Head showed mildly decrease size of subdural hematoma. -PT/OT evaluation -Awaiting placement. -COVID-19 testing in anticipation for return to [facility]. Of note, patient denies fevers/chills/cough/SOB. No sick contacts or positive contacts. Patient IS NOT a PUI. (2) Dementia: Patient with baseline dementia. Becoming mildly agitated in the ER requiring frequent redirection, attempting to climb out of bed. Ativan 0.5mg IV given in ER with improvement in symptoms -no longer requires 1:1 -Frequent redirection -Avoid delirium inducing agents where possible (3) GERD (gastroesophageal reflux disease): Chronic. Stable -Continue Protonix (4) Depression: Chronic -Continue Remeron (5) Hyperlipidemia: Chronic. Stable -Continue Atorvastatin (6) Coronary artery disease: Chronic. Stable -Continue Atorvastatin -Hold Plavix F/E/N - Heplock. Monitor electrolytes with AM labs and replete if needed, Heart Healthy/Easy to Chew diet with aspiration precautions Ppx - SCDs Code - DNR/DNI Admission and Anticipated Discharge Date Admission Date: December 18, 2019 Subjective Patient reports no new symptoms. Review of Systems Review of Systems: Unobtainable due to cognitive status Physical Exam Physical Exam: General:awake, alert and oriented to self, and place NAD, follows commands Skin: warm, dry, small laceration on posterior head, no active bleeding, +hematoma HEENT: PERRL, EOMI, facial bones stable, anicteric sclera, conjunctiva without injection, external ear normal to inspection and nontender, nares patent, moist mucus membranes, dentition intact, no oropharyngeal lesions, neck supple, trachea midline, no LAD, no thyromegaly, no JVD Heart: +S1/S2, regular, no m/r/g Lungs: equal air entry bilaterally, no rales/rhonchi/wheezes Abd: +BS, soft, NT/ND, no masses/organomegaly/ascites Ext: warm, 2+ pulses in UE/LE bilaterally, no clubbing/cyanosis or edema Neuro: nonfocal, speech intact, no facial droop, moving all extremities on command with equal strength 5/5 Results & Data Results & Data ([facility]) Vital Signs (Past 12 Hours) Vital Signs Temp Pulse Resp BP Pulse Ox 12/19/19 15:10 36.6 C 60 14 126/74 97 PG Care Time/CCT Total # of Minutes Spent Total Time Spent with Patient: Total time spent is greater than 50% in coordination of care (as documented) at patient's floor/unit and/or counseling patient: Coding Level of Care Code 75692 Subseq Hosp Care Lvl 2 Diagnoses Acute subdural hematoma S06.5X9A Dementia F03.91 Dementia behavioral disturbance: with behavioral disturbance Dementia type: unspecified type GERD (gastroesophageal reflux disease) K21.9 Esophagitis presence: esophagitis presence not specified Depression F32.9 Active/Remission status: remission status unspecified Depression Type: major depressive disorder Major depression recurrence: unspecified whether recurrent Hyperlipidemia E78.5 Hyperlipidemia type: unspecified Coronary artery disease I25.10 Associated angina: without angina Coronary Disease-Associated Artery/Lesion type: [place] artery [place] vs. transplanted heart: [place] heart Time Spent (min) 25 (1) Coronary artery disease Associated angina: without angina Coronary Disease-Associated Artery/Lesion type: [place] artery [place] vs. transplanted heart: [place] heart Qualified Code(s): I25.10 - Atherosclerotic heart disease of [place] coronary artery without angina pectoris (2) Dementia Dementia behavioral disturbance: with behavioral disturbance Dementia type: unspecified type Qualified Code(s): F03.91 - Unspecified dementia with behavioral disturbance (3) Depression Active/Remission status: remission status unspecified Depression Type: major depressive disorder Major depression recurrence: unspecified whether recurrent Qualified Code(s): F32.9 - Major depressive disorder, single episode, unspecified (4) Hyperlipidemia Hyperlipidemia type: unspecified Qualified Code(s): E78.5 - Hyperlipidemia, unspecified (5) GERD (gastroesophageal reflux disease) Esophagitis presence: esophagitis presence not specified Qualified Code(s): K21.9 - Gastro-esophageal reflux disease without esophagitis
[2019-12-20] MEDS: RESTASIS~ORDER AWAITING ACTION SCH ×3 (09:19→23:57)
[2019-12-20] MEDS: POTASSIUM CHLORIDE 20 MEQ TABCR PO SCH ×2 (09:37→20:21)
[2019-12-20] MEDS: PANTOprazole 40 MG TAB PO SCH (09:37)
--- NOTE | 2019-12-20 15:07 | Hospitalist Progress Note ---
Date of Service December 20, 2019 Assessment & Plan (1) Acute subdural hematoma: 84yo C female presenting from [place] after unwitnessed fall, patient with small parafalcine SDH 1cm in thickness with no midline shift. She is on Plavix. Patient does not wish to have aggressive intervention for this issue. -admitted to medical floor -Hold Plavix -Neuro checks -Repeat CT Head showed mildly decrease size of subdural hematoma. -PT/OT evaluation -Awaiting placement. -COVID-19 testing in anticipation for return to [facility]. Of note, patient denies fevers/chills/cough/SOB. No sick contacts or positive contacts. Patient IS NOT a PUI. Patient will remain in the hospital for the course of the weekend. (2) Dementia: Patient with baseline dementia. Becoming mildly agitated in the ER requiring frequent redirection, attempting to climb out of bed. Ativan 0.5mg IV given in ER with improvement in symptoms -no longer requires 1:1 -Frequent redirection -Avoid delirium inducing agents where possible (3) GERD (gastroesophageal reflux disease): Chronic. Stable -Continue Protonix (4) Depression: Chronic -Continue Remeron (5) Hyperlipidemia: Chronic. Stable -Continue Atorvastatin (6) Coronary artery disease: Chronic. Stable -Continue Atorvastatin -Hold Plavix F/E/N - Heplock. Monitor electrolytes with AM labs and replete if needed, Heart Healthy/Easy to Chew diet with aspiration precautions Ppx - SCDs Code - DNR/DNI Admission and Anticipated Discharge Date Admission Date: December 18, 2019 Subjective Patient reports feeling well. She continues to be confused (likely from her baseline dementia). She mentions about the birds flying outside of her window. She asks about the weather outside. She denies any pain, fever, chills, nausea, vomiting. Review of Systems Review of Systems: All systems reviewed & are unremarkable except as noted in HPI & below Physical Exam Physical Exam: General:awake, alert and oriented to self, and place NAD, follows commands Skin: warm, dry, small laceration on posterior head, no active bleeding, +hematoma HEENT: PERRL, EOMI, facial bones stable, anicteric sclera, conjunctiva without injection, external ear normal to inspection and nontender, nares patent, moist mucus membranes, dentition intact, no oropharyngeal lesions, neck supple, trachea midline, no LAD, no thyromegaly, no JVD Heart: +S1/S2, regular, no m/r/g Lungs: equal air entry bilaterally, no rales/rhonchi/wheezes Abd: +BS, soft, NT/ND, no masses/organomegaly/ascites Ext: warm, 2+ pulses in UE/LE bilaterally, no clubbing/cyanosis or edema Neuro: nonfocal, speech intact, no facial droop, moving all extremities on command with equal strength 5/5 Results & Data Results & Data ([facility]) Vital Signs (Past 12 Hours) Vital Signs Temp Pulse Resp BP Pulse Ox 12/20/19 07:16 36.7 C 59 L 18 124/77 97 PG Care Time/CCT Total # of Minutes Spent Total Time Spent with Patient: Total time spent is greater than 50% in coordination of care (as documented) at patient's floor/unit and/or counseling patient: Coding Level of Care Code 10881 Subseq Hosp Care Lvl 2 Diagnoses Acute subdural hematoma S06.5X9A Dementia F03.91 Dementia behavioral disturbance: with behavioral disturbance Dementia type: unspecified type GERD (gastroesophageal reflux disease) K21.9 Esophagitis presence: esophagitis presence not specified Depression F32.9 Active/Remission status: remission status unspecified Depression Type: major depressive disorder Major depression recurrence: unspecified whether recurrent Hyperlipidemia E78.5 Hyperlipidemia type: unspecified Coronary artery disease I25.10 Associated angina: without angina Coronary Disease-Associated Artery/Lesion type: [place] artery [place] vs. transplanted heart: [place] heart (1) Coronary artery disease Associated angina: without angina Coronary Disease-Associated Artery/Lesion type: [place] artery [place] vs. transplanted heart: [place] heart Qualified Code(s): I25.10 - Atherosclerotic heart disease of [place] coronary artery without angina pectoris (2) Dementia Dementia behavioral disturbance: with behavioral disturbance Dementia type: unspecified type Qualified Code(s): F03.91 - Unspecified dementia with behavioral disturbance (3) Depression Active/Remission status: remission status unspecified Depression Type: major depressive disorder Major depression recurrence: unspecified whether recurrent Qualified Code(s): F32.9 - Major depressive disorder, single episode, unspecified (4) Hyperlipidemia Hyperlipidemia type: unspecified Qualified Code(s): E78.5 - Hyperlipidemia, unspecified (5) GERD (gastroesophageal reflux disease) Esophagitis presence: esophagitis presence not specified Qualified Code(s): K21.9 - Gastro-esophageal reflux disease without esophagitis
[2019-12-20] MEDS: MELATONIN 3 MG TAB PO SCH (20:12)
[2019-12-20] MEDS: MIRTAZAPINE TAB 15 MG TAB PO SCH (20:12)
[2019-12-20] MEDS: QUETIAPINE FUMARATE 25 MG TABLET PO SCH (20:12)
[2019-12-20] MEDS: ATORVASTATIN 40 MG TAB PO SCH (20:21)
[2019-12-20] MEDS: LORazepam 0.5 MG/1 ML VIAL IV ONE (23:56)
[2019-12-21] MEDS: LORazepam 0.5 MG/1 ML VIAL IV ONE (06:09)
[2019-12-21] MEDS: RESTASIS~ORDER AWAITING ACTION SCH ×3 (07:18→22:52)
[2019-12-21] MEDS: POTASSIUM CHLORIDE 20 MEQ TABCR PO SCH ×4 (09:01→22:48)
[2019-12-21] MEDS: PANTOprazole 40 MG TAB PO SCH (09:01)
[2019-12-21] MEDS ORDERED: bisacodyL 10 MG SUPP PR STA (11:16)
[2019-12-21] MEDS: MELATONIN 3 MG TAB PO SCH (22:07)
[2019-12-21] MEDS: QUETIAPINE FUMARATE 25 MG TABLET PO SCH (22:07)
[2019-12-21] MEDS: MIRTAZAPINE TAB 15 MG TAB PO SCH (22:07)
[2019-12-21] MEDS: ATORVASTATIN 40 MG TAB PO SCH ×2 (22:08→23:30)
--- NOTE | 2019-12-21 22:35 | Hospitalist Progress Note ---
Date of Service December 21, 2019 Assessment & Plan (1) Acute subdural hematoma: 84yo C female presenting from [place] after unwitnessed fall, patient with small parafalcine SDH 1cm in thickness with no midline shift. She is on Plavix. Patient does not wish to have aggressive intervention for this issue. -admitted to medical floor -Hold Plavix for about 1 month. may consider reimaging in 30 days and restarting plavix. Indication was for CAD. will defer to PCP. -Neuro checks -Repeat CT Head showed mildly decrease size of subdural hematoma. -PT/OT evaluation -Awaiting placement. -COVID-19 testing in anticipation for return to [facility]. Of note, patient denies fevers/chills/cough/SOB. No sick contacts or positive contacts. Patient IS NOT a PUI. Patient will remain in the hospital for the course of the weekend. (2) Dementia: Patient with baseline dementia. Becoming mildly agitated in the ER requiring frequent redirection, attempting to climb out of bed. Ativan 0.5mg IV given in ER with improvement in symptoms -no longer requires 1:1 -Frequent redirection -Avoid delirium inducing agents where possible (3) GERD (gastroesophageal reflux disease): Chronic. Stable -Continue Protonix (4) Depression: Chronic -Continue Remeron (5) Hyperlipidemia: Chronic. Stable -Continue Atorvastatin (6) Coronary artery disease: Chronic. Stable -Continue Atorvastatin -Hold Plavix F/E/N - Heplock. Monitor electrolytes with AM labs and replete if needed, Heart Healthy/Easy to Chew diet with aspiration precautions Ppx - SCDs Code - DNR/DNI Admission and Anticipated Discharge Date Admission Date: December 18, 2019 Subjective 84 yo female has no new complaints. Review of Systems Review of Systems: All systems reviewed & are unremarkable except as noted in HPI & below Physical Exam Physical Exam: General:awake, alert and oriented to self, and place NAD, follows commands Skin: warm, dry, small laceration on posterior head, no active bleeding, +hematoma HEENT: PERRL, EOMI, facial bones stable, anicteric sclera, conjunctiva without injection, external ear normal to inspection and nontender, nares patent, moist mucus membranes, dentition intact, no oropharyngeal lesions, neck supple, trachea midline, no LAD, no thyromegaly, no JVD Heart: +S1/S2, regular, no m/r/g Lungs: equal air entry bilaterally, no rales/rhonchi/wheezes Abd: +BS, soft, NT/ND, no masses/organomegaly/ascites Ext: warm, 2+ pulses in UE/LE bilaterally, no clubbing/cyanosis or edema Neuro: nonfocal, speech intact, no facial droop, moving all extremities on command with equal strength 5/5 Results & Data Results & Data ([facility]) Vital Signs (Past 12 Hours) Vital Signs Temp Pulse Resp BP Pulse Ox 12/21/19 15:05 36.8 C 58 L 18 103/62 97 PG Care Time/CCT Total # of Minutes Spent Total Time Spent with Patient: Total time spent is greater than 50% in coordination of care (as documented) at patient's floor/unit and/or counseling patient: Coding Level of Care Code 92340 Subseq Hosp Care Lvl 2 Diagnoses Acute subdural hematoma S06.5X9A Dementia F03.91 Dementia behavioral disturbance: with behavioral disturbance Dementia type: unspecified type GERD (gastroesophageal reflux disease) K21.9 Esophagitis presence: esophagitis presence not specified Depression F32.9 Active/Remission status: remission status unspecified Depression Type: major depressive disorder Major depression recurrence: unspecified whether recurrent Hyperlipidemia E78.5 Hyperlipidemia type: unspecified Coronary artery disease I25.10 Associated angina: without angina Coronary Disease-Associated Artery/Lesion type: [place] artery [place] vs. transplanted heart: [place] heart (1) Coronary artery disease Associated angina: without angina Coronary Disease-Associated Artery/Lesion type: [place] artery [place] vs. transplanted heart: [place] heart Qualified Code(s): I25.10 - Atherosclerotic heart disease of [place] coronary artery [place] angina pectoris (2) Dementia Dementia behavioral disturbance: with behavioral disturbance Dementia type: unspecified type Qualified Code(s): F03.91 - Unspecified dementia with behavioral disturbance (3) Depression Active/Remission status: remission status unspecified Depression Type: major depressive disorder Major depression recurrence: unspecified whether recurrent Qualified Code(s): F32.9 - Major depressive disorder, single episode, unspecified (4) Hyperlipidemia Hyperlipidemia type: unspecified Qualified Code(s): E78.5 - Hyperlipidemia, unspecified (5) GERD (gastroesophageal reflux disease) Esophagitis presence: esophagitis presence not specified Qualified Code(s): K21.9 - Gastro-esophageal reflux disease without esophagitis
[2019-12-22] MEDS: MIRTAZAPINE TAB 15 MG TAB PO SCH ×2 (06:10→19:59)
[2019-12-22] MEDS: MELATONIN 3 MG TAB PO SCH ×2 (06:10→19:59)
[2019-12-22] MEDS: QUETIAPINE FUMARATE 25 MG TABLET PO SCH ×2 (06:10→19:59)
[2019-12-22] MEDS: RESTASIS~ORDER AWAITING ACTION SCH ×3 (07:28→23:03)
[2019-12-22] MEDS: POTASSIUM CHLORIDE 20 MEQ TABCR PO SCH ×2 (08:34→20:02)
[2019-12-22] MEDS: PANTOprazole 40 MG TAB PO SCH (08:35)
--- NOTE | 2019-12-22 09:21 | Hospitalist Progress Note ---
Date of Service December 22, 2019 Assessment & Plan (1) Acute subdural hematoma: 84yo C female presenting from [place] after unwitnessed fall, patient with small parafalcine SDH 1cm in thickness with no midline shift. She is on Plavix. Patient does not wish to have aggressive intervention for this issue. -admitted to medical floor -Hold Plavix for about 1 month. may consider reimaging in 30 days and restarting plavix. Indication was for CAD. will defer to PCP. -Repeat CT Head showed mildly decrease size of subdural hematoma. -PT/OT evaluation: patient requires placement. -COVID-19 testing was negative in anticipation for return to [facility]. Of note, patient denies fevers/chills/cough/SOB. No sick contacts or positive contacts. Patient IS NOT a PUI. Patient will remain in the hospital for the course of the weekend. (2) Dementia: Patient with baseline dementia. Becoming mildly agitated in the ER requiring frequent redirection, attempting to climb out of bed. Ativan 0.5mg IV given in ER with improvement in symptoms -no longer requires 1:1 -Frequent redirection -Avoid delirium inducing agents where possible (3) GERD (gastroesophageal reflux disease): Chronic. Stable -Continue Protonix (4) Depression: Chronic -Continue Remeron (5) Hyperlipidemia: Chronic. Stable -Continue Atorvastatin (6) Coronary artery disease: Chronic. Stable -Continue Atorvastatin -Hold Plavix F/E/N - Heplock. Monitor electrolytes with AM labs and replete if needed, Heart Healthy/Easy to Chew diet with aspiration precautions Ppx - SCDs Code - DNR/DNI Reason as to why patient remains in hospital is due to placement. Hopefully discharge can be completed tomorrow. Admission and Anticipated Discharge Date Admission Date: December 18, 2019 Subjective 84 yo female is pleasantly demented. Had discussion with nursing staff, she was uncooperative overnight. Today, however, she has no complaints and wants to eat her breakfast. Review of Systems Review of Systems: All systems reviewed & are unremarkable except as noted in HPI & below Physical Exam Physical Exam: General:awake, alert and oriented to self, and place NAD, follows commands Skin: warm, dry, small laceration on posterior head, no active bleeding, +hematoma HEENT: PERRL, EOMI, facial bones stable, anicteric sclera, conjunctiva without injection, external ear normal to inspection and nontender, nares patent, moist mucus membranes, dentition intact, no oropharyngeal lesions, neck supple, trachea midline, no LAD, no thyromegaly, no JVD Heart: +S1/S2, regular, no m/r/g Lungs: equal air entry bilaterally, no rales/rhonchi/wheezes Abd: +BS, soft, NT/ND, no masses/organomegaly/ascites Ext: warm, 2+ pulses in UE/LE bilaterally, no clubbing/cyanosis or edema Neuro: nonfocal, speech intact, no facial droop, moving all extremities on command with equal strength 5/5 Results & Data Results & Data ([facility]) Vital Signs (Past 12 Hours) Vital Signs Temp Pulse Resp BP Pulse Ox 12/21/19 23:30 36.6 C 85 18 134/81 94 PG Care Time/CCT Total # of Minutes Spent Total Time Spent with Patient: Total time spent is greater than 50% in coordination of care (as documented) at patient's floor/unit and/or counseling patient: Coding Level of Care Code 04831 Subseq Hosp Care Lvl 2 Diagnoses Acute subdural hematoma S06.5X9A Dementia F03.91 Dementia behavioral disturbance: with behavioral disturbance Dementia type: unspecified type GERD (gastroesophageal reflux disease) K21.9 Esophagitis presence: esophagitis presence not specified Depression F32.9 Depression Type: major depressive disorder Major depression recurrence: unspecified whether recurrent Active/Remission status: remission status unspecified Hyperlipidemia E78.5 Hyperlipidemia type: unspecified Coronary artery disease I25.10 Coronary Disease-Associated Artery/Lesion type: [place] artery [place] vs. transplanted heart: [place] heart Associated angina: without angina (1) Dementia Dementia behavioral disturbance: with behavioral disturbance Dementia type: unspecified type Qualified Code(s): F03.91 - Unspecified dementia with behavioral disturbance (2) GERD (gastroesophageal reflux disease) Esophagitis presence: esophagitis presence not specified Qualified Code(s): K21.9 - Gastro-esophageal reflux disease without esophagitis (3) Depression Depression Type: major depressive disorder Major depression recurrence: unspecified whether recurrent Active/Remission status: remission status unspecified Qualified Code(s): F32.9 - Major depressive disorder, single episode, unspecified (4) Hyperlipidemia Hyperlipidemia type: unspecified Qualified Code(s): E78.5 - Hyperlipidemia, unspecified (5) Coronary artery disease Coronary Disease-Associated Artery/Lesion type: [place] artery [place] vs. transplanted heart: [place] heart Associated angina: without angina Qualified Code(s): I25.10 - Atherosclerotic heart disease of [place] coronary artery without angina pectoris
[2019-12-22] MEDS: bisacodyL 10 MG SUPP PR PRN (11:59)
[2019-12-22] MEDS: ATORVASTATIN 40 MG TAB PO SCH (19:59)
[2019-12-23] MEDS: POTASSIUM CHLORIDE 20 MEQ TABCR PO SCH ×3 (08:42→18:19)
[2019-12-23] MEDS: PANTOprazole 40 MG TAB PO SCH (08:42)
[2019-12-23] MEDS: RESTASIS~ORDER AWAITING ACTION SCH ×3 (08:43→23:29)
--- NOTE | 2019-12-23 12:53 | Hospitalist Progress Note ---
Date of Service December 23, 2019 Assessment & Plan (1) Acute subdural hematoma: 84yo C female presenting from [place] after unwitnessed fall on 12/16, patient with small parafalcine SDH 1cm in thickness with no midline shift. She is on Plavix. Patient did not wish to have aggressive intervention for this issue. - Hold Plavix for about 1 month. May consider reiimaging in 30 days and restarting Plavix. Indication was for CAD. Will defer to PCP. - Repeat CT head on 12/17 showed mildly decrease size of subdural hematoma. - PT/OT evaluation: patient requires placement. - COVID-19 testing was negative in anticipation for return to [facility]. Of note, patient denies fevers/chills/cough/SOB. No sick contacts or positive contacts. Patient IS NOT a PUI. - No symptoms or signs indicating worsening bleeding. (2) Dementia: Patient with baseline dementia. Became mildly agitated in the ED requiring frequent redirection, attempting to climb out of bed. I have worked with the patient in the past. At baseline, she is pleasant and conversant; however, she is usually only orient to self from my recollection of previous care. At times, she can get agitated when in a new setting (ie, the hospital). - No longer requires 1:1 sitter. - Frequent redirection - Continue Seroquel -> Noted that this has a black box warning for use with dementia; however, given her periodic agitation and danger to self/others, it may be appropriate in this case. - Avoid delirium inducing agents where possible -> Pleasant this morning. (3) GERD (gastroesophageal reflux disease): Chronic. Stable. - Continue Protonix (4) Depression: Chronic. - Continue Remeron (5) Hyperlipidemia: Chronic. Stable. - Continue atorvastatin (6) Coronary artery disease: Chronic. Stable. No report of chest pain this morning. - Continue atorvastatin - Hold Plavix as above (7) DVT prophylaxis: SCDs & early ambulation Admission and Anticipated Discharge Date Admission Date: December 18, 2019 Subjective No issues today. She reports that she is "tired," but that is all. No focal complaints. Reports no fevers/chills, chest pain, shortness of breath, abdominal pain, nausea, or vomiting. Physical Exam Constitutional: WD/WN, vitals as above Eyes: EOM intact bilaterally; no conjunctival abnormality ENMT: external ear and nose normal, oropharynx normal Neck: trachea midline, no thyromegaly normal visual inspection Respiratory: normal respiratory effort, lungs clear to auscultation no respiratory distress Cardiovascular: RRR, no murmur, no edema Gastrointestinal (Abdomen): Inspection/Auscultation: abdomen normal to inspection; abdomen not distended Musculoskeletal: no cyanosis or clubbing, extremities motor strength 5/5 Skin: no rashes, warm and dry Neurologic: moves all extremities and awake Psychiatric: Orientation: alert, oriented to person and cooperative PG Care Time/CCT Total # of Minutes Spent Total Time Spent with Patient: Total time spent is greater than 50% in coordination of care (as documented) at patient's floor/unit and/or counseling patient: Coding Level of Care Code 66068 Subseq Hosp Care Lvl 2 Diagnoses Acute subdural hematoma S06.5X9A Dementia F03.91 Dementia behavioral disturbance: with behavioral disturbance Dementia type: unspecified type GERD (gastroesophageal reflux disease) K21.9 Esophagitis presence: esophagitis presence not specified Depression F32.9 Depression Type: major depressive disorder Major depression recurrence: unspecified whether recurrent Active/Remission status: remission status unspecified Hyperlipidemia E78.5 Hyperlipidemia type: unspecified Coronary artery disease I25.10 Coronary Disease-Associated Artery/Lesion type: [place] artery [place] vs. transplanted heart: [place] heart Associated angina: without angina DVT prophylaxis Z29.9 (1) Dementia Dementia behavioral disturbance: with behavioral disturbance Dementia type: unspecified type Qualified Code(s): F03.91 - Unspecified dementia with behavioral disturbance (2) GERD (gastroesophageal reflux disease) Esophagitis presence: esophagitis presence not specified Qualified Code(s): K21.9 - Gastro-esophageal reflux disease without esophagitis (3) Depression Depression Type: major depressive disorder Major depression recurrence: unspecified whether recurrent Active/Remission status: remission status unspecified Qualified Code(s): F32.9 - Major depressive disorder, single episode, unspecified (4) Hyperlipidemia Hyperlipidemia type: unspecified Qualified Code(s): E78.5 - Hyperlipidemia, unspecified (5) Coronary artery disease Coronary Disease-Associated Artery/Lesion type: [place] artery [place] vs. transplanted heart: [place] heart Associated angina: without angina Qualified Code(s): I25.10 - Atherosclerotic heart disease of [place] coronary artery without angina pectoris
[2019-12-23] MEDS: MIRTAZAPINE TAB 15 MG TAB PO SCH (18:16)
[2019-12-23] MEDS: MELATONIN 3 MG TAB PO SCH (18:16)
[2019-12-23] MEDS: QUETIAPINE FUMARATE 25 MG TABLET PO SCH (18:16)
[2019-12-23] MEDS: ATORVASTATIN 40 MG TAB PO SCH (18:20)
[2019-12-23] MEDS: bisacodyL 10 MG SUPP PR PRN (22:04)
[2019-12-23] MEDS ORDERED: SOD PHOSPHATE/SOD BIPHOSPHATE ENEMA 132 ML BTL PR STA (22:23)
[2019-12-23 23:06] LABS: Appearance Urine Cloudy (Clear); Bilirubin Urine Negative (Negative); Blood Urine 2+ (Negative); Color Urine Dark Yellow; Epithelial Cell Urine Auto >30 /lpf (0-5); Glucose Urine UA Negative (Negative); Ketones Urine Trace (Negative); Leukocyte Esterase Urine 1+ (Negative); Nitrite Urine Negative (Negative); Protein Urine Trace (Negative); Specific Gravity Urine 1.022 (1.000-1.030); Urobilinogen Urine Negative (Negative)
[2019-12-23 23:30] LABS: Mucus Urine Present (None Prsent)
[2019-12-23 23:31] LABS: Bacteria Urine Automated 2+ (Negative)
[2019-12-23 23:32] LABS: Cast Urine Automated 0 /lpf (0-5)
[2019-12-23 23:35] LABS: RBC Urine Automated 0-4 /hpf (0-4)
[2019-12-24 06:27] LABS: Hematocrit (blood only) 37.7 % (37-47); Hemoglobin 12.5 g/dL (12.0-16.0); Mean Corpuscular Hemoglobin 31.6 pg (25-34); Mean Corpuscular Hgb Conc 33.2 g/dL (32-36); Mean Corpuscular Volume 95.2 fL (80-100); Mean Platelet Volume 10.3 fL (7.4-10.4); Platelet Count 255 K/uL (130-400); RDW Standard Deviation 48.5 fL (36.4-46.3); Red Blood Count 3.96 M/uL (4.2-5.4); White Blood Count 5.74 K/uL (4.8-10.8)
[2019-12-24 07:01] LABS: BUN Creatinine Ratio 21.6 (10-20); Calcium 8.6 mg/dl (8.5-10.1); Creatinine Clr Calc Pharmacy 49.1 ml/min; Est GFR (African American) 80.2; Est GFR (Non-African American) 69.2; Magnesium 1.8 mg/dl (1.8-2.4); Phosphorus 3.6 mg/dl (2.5-4.9); Potassium 3.4 mmol/L (3.5-5.1)
[2019-12-24] MEDS: RESTASIS~ORDER AWAITING ACTION SCH ×2 (07:02→16:36)
[2019-12-24] MEDS: PANTOprazole 40 MG TAB PO SCH (08:50)
[2019-12-24] MEDS: POTASSIUM CHLORIDE 20 MEQ TABCR PO SCH ×3 (08:50→17:55)
--- NOTE | 2019-12-24 13:32 | Hospitalist Progress Note ---
Date of Service December 24, 2019 Assessment & Plan (1) Acute subdural hematoma: 84yo C female presenting from [place] after unwitnessed fall on 12/16, patient with small parafalcine SDH 1cm in thickness with no midline shift. She is on Plavix. Patient did not wish to have aggressive intervention for this issue. - Hold Plavix for about 1 month. May consider reiimaging in 30 days and restarting Plavix. Indication was for CAD. Will defer to PCP. - Repeat CT head on 12/17 showed mildly decrease size of subdural hematoma. - PT/OT evaluation: patient requires placement. - COVID-19 testing was negative in anticipation for return to [facility]. Of note, patient denies fevers/chills/cough/SOB. No sick contacts or positive contacts. Patient IS NOT a PUI. - No symptoms or signs indicating worsening bleeding. [place] today. (2) Dementia: Patient with baseline dementia. Became mildly agitated in the ED requiring frequent redirection, attempting to climb out of bed. I have worked with the patient in the past. At baseline, she is pleasant and conversant; however, she is usually only orient to self from my recollection of previous care. At times, she can get agitated when in a new setting (ie, the hospital). - No longer requires 1:1 sitter. - Frequent redirection - Continue Seroquel -> Noted that this has a black box warning for use with dementia; however, given her periodic agitation and danger to self/others, it may be appropriate in this case. - Avoid delirium inducing agents where possible -> Pleasant this morning. (3) GERD (gastroesophageal reflux disease): Chronic. Stable. - Continue Protonix (4) Depression: Chronic. - Continue Remeron (5) Hyperlipidemia: Chronic. Stable. - Continue atorvastatin (6) Coronary artery disease: Chronic. Stable. No report of chest pain this morning. - Continue atorvastatin - Hold Plavix as above (7) DVT prophylaxis: SCDs & early ambulation - Heparin contraindicated in the setting of her recent SDH. Admission and Anticipated Discharge Date Admission Date: December 18, 2019 Subjective No major issues. She reports she is "tired" and bored and crawled into bed to take a nap. Reports no fevers/chills, chest pain, shortness of breath, abdominal pain, nausea, or vomiting. Physical Exam Constitutional: WD/WN, vitals as above Eyes: EOM intact bilaterally; no conjunctival abnormality ENMT: external ear and nose normal, oropharynx normal Neck: trachea midline, no thyromegaly normal visual inspection Respiratory: normal respiratory effort, lungs clear to auscultation no respiratory distress Cardiovascular: RRR, no murmur, no edema Gastrointestinal (Abdomen): Inspection/Auscultation: abdomen normal to inspection; abdomen not distended Musculoskeletal: no cyanosis or clubbing, extremities motor strength 5/5 Skin: no rashes, warm and dry Neurologic: moves all extremities and awake Psychiatric: Orientation: alert, oriented to person and cooperative Results & Data Results & Data ([facility]) Vital Signs (Past 12 Hours) Vital Signs Temp Pulse Resp BP Pulse Ox 12/24/19 07:27 36.2 C L 96 H 17 131/65 96 PG Care Time/CCT Total # of Minutes Spent Total Time Spent with Patient: Total time spent is greater than 50% in coordination of care (as documented) at patient's floor/unit and/or counseling patient: Coding Level of Care Code 19251 Subseq Hosp Care Lvl 2 Diagnoses Acute subdural hematoma S06.5X9A Dementia F03.91 Dementia behavioral disturbance: with behavioral disturbance Dementia type: unspecified type GERD (gastroesophageal reflux disease) K21.9 Esophagitis presence: esophagitis presence not specified Depression F32.9 Depression Type: major depressive disorder Major depression recurrence: unspecified whether recurrent Active/Remission status: remission status unspecified Hyperlipidemia E78.5 Hyperlipidemia type: unspecified Coronary artery disease I25.10 Coronary Disease-Associated Artery/Lesion type: [place] artery [place] vs. transplanted heart: [place] heart Associated angina: without angina DVT prophylaxis Z29.9 (1) Dementia Dementia behavioral disturbance: with behavioral disturbance Dementia type: unspecified type Qualified Code(s): F03.91 - Unspecified dementia with behavioral disturbance (2) GERD (gastroesophageal reflux disease) Esophagitis presence: esophagitis presence not specified Qualified Code(s): K21.9 - Gastro-esophageal reflux disease without esophagitis (3) Depression Depression Type: major depressive disorder Major depression recurrence: unspecified whether recurrent Active/Remission status: remission status unspecified Qualified Code(s): F32.9 - Major depressive disorder, single episode, unspecified (4) Hyperlipidemia Hyperlipidemia type: unspecified Qualified Code(s): E78.5 - Hyperlipidemia, unspecified (5) Coronary artery disease Coronary Disease-Associated Artery/Lesion type: [place] artery [place] vs. transplanted heart: [place] heart Associated angina: without angina Qualified Code(s): I25.10 - Atherosclerotic heart disease of [place] coronary artery without angina pectoris
[2019-12-24] MEDS: MIRTAZAPINE TAB 15 MG TAB PO SCH (17:46)
[2019-12-24] MEDS: MELATONIN 3 MG TAB PO SCH (17:46)
[2019-12-24] MEDS: QUETIAPINE FUMARATE 25 MG TABLET PO SCH (17:46)
[2019-12-24] MEDS: ATORVASTATIN 40 MG TAB PO SCH (17:55)
[2019-12-25] MEDS: RESTASIS~ORDER AWAITING ACTION SCH ×4 (00:18→22:10)
[2019-12-25] MEDS: PANTOprazole 40 MG TAB PO SCH (08:37)
[2019-12-25] MEDS: POTASSIUM CHLORIDE 20 MEQ TABCR PO SCH ×2 (08:37→20:12)
--- NOTE | 2019-12-25 13:43 | Hospitalist Progress Note ---
Date of Service December 25, 2019 Assessment & Plan (1) Acute subdural hematoma: 84yo C female presenting from [place] after unwitnessed fall on 12/16, patient with small parafalcine SDH 1cm in thickness with no midline shift. She is on Plavix. Patient did not wish to have aggressive intervention for this issue. - Hold Plavix for about 1 month. May consider reiimaging in 30 days and restarting Plavix. Indication was for CAD. Will defer to PCP. - Repeat CT head on 12/17 showed mildly decrease size of subdural hematoma. - PT/OT evaluation: patient requires placement. - COVID-19 testing was negative in anticipation for return to [facility]. Of note, patient denies fevers/chills/cough/SOB. No sick contacts or positive contacts. Patient IS NOT a PUI. - No symptoms or signs indicating worsening bleeding. Stable today. No focal complaints. (2) Dementia: Patient with baseline dementia. Became mildly agitated in the ED requiring frequent redirection, attempting to climb out of bed. I have worked with the patient in the past. At baseline, she is pleasant and conversant; however, she is usually only orient to self from my recollection of previous care. At times, she can get agitated when in a new setting (ie, the hospital). - No longer requires 1:1 sitter. - Frequent redirection - Continue Seroquel -> Noted that this has a black box warning for use with dementia; however, given her periodic agitation and danger to self/others, it may be appropriate in this case. - Avoid delirium inducing agents where possible -> Pleasant this morning, but again tired. (3) GERD (gastroesophageal reflux disease): Chronic. Stable. - Continue Protonix (4) Depression: Chronic. - Continue Remeron (5) Hyperlipidemia: Chronic. Stable. - Continue atorvastatin (6) Coronary artery disease: Chronic. Stable. No report of chest pain this morning. - Continue atorvastatin - Hold Plavix as above (7) DVT prophylaxis: SCDs & early ambulation - Heparin contraindicated in the setting of her recent SDH. Admission and Anticipated Discharge Date Admission Date: December 18, 2019 Subjective No complaints today. Reports she is "tired" and stays in bed. Reports no fevers/chills, chest pain, shortness of breath, abdominal pain, nausea, or vomiting. Physical Exam Constitutional: WD/WN, vitals as above Eyes: EOM intact bilaterally; no conjunctival abnormality ENMT: external ear and nose normal, oropharynx normal Neck: trachea midline, no thyromegaly normal visual inspection Respiratory: normal respiratory effort, lungs clear to auscultation no respiratory distress Cardiovascular: RRR, no murmur, no edema Gastrointestinal (Abdomen): Inspection/Auscultation: abdomen normal to inspection; abdomen not distended Musculoskeletal: no cyanosis or clubbing, extremities motor strength 5/5 Skin: no rashes, warm and dry Neurologic: moves all extremities and awake Psychiatric: Orientation: alert, oriented to person and cooperative Results & Data [facility]) Vital Signs (Past 12 Hours) Vital Signs Temp Pulse Resp BP Pulse Ox 12/25/19 08:31 36.4 C L 71 16 123/75 98 PG Care Time/CCT Total # of Minutes Spent Total Time Spent with Patient: Total time spent is greater than 50% in coordination of care (as documented) at patient's floor/unit and/or counseling patient: Coding Level of Care Code 38399 Subseq Hosp Care Lvl 1 Diagnoses Acute subdural hematoma S06.5X9A Dementia F03.91 Dementia behavioral disturbance: with behavioral disturbance Dementia type: unspecified type GERD (gastroesophageal reflux disease) K21.9 Esophagitis presence: esophagitis presence not specified Depression F32.9 Depression Type: major depressive disorder Major depression recurrence: unspecified whether recurrent Active/Remission status: remission status unspecified Hyperlipidemia E78.5 Hyperlipidemia type: unspecified Coronary artery disease I25.10 Coronary Disease-Associated Artery/Lesion type: [place] artery [place] vs. transplanted heart: [place] heart Associated angina: without angina DVT prophylaxis Z29.9 (1) Dementia Dementia behavioral disturbance: with behavioral disturbance Dementia type: unspecified type Qualified Code(s): F03.91 - Unspecified dementia with behavioral disturbance (2) GERD (gastroesophageal reflux disease) Esophagitis presence: esophagitis presence not specified Qualified Code(s): K21.9 - Gastro-esophageal reflux disease without esophagitis (3) Depression Depression Type: major depressive disorder Major depression recurrence: unspecified whether recurrent Active/Remission status: remission status un specified Qualified Code(s): F32.9 - Major depressive disorder, single episode, unspecified (4) Hyperlipidemia Hyperlipidemia type: unspecified Qualified Code(s): E78.5 - Hyperlipidemia, unspecified (5) Coronary artery disease Coronary Disease-Associated Artery/Lesion type: [place] artery [place] vs. transplanted heart: [place] heart Associated angina: without angina Qualified Code(s): I25.10 - Atherosclerotic heart disease of [place] coronary artery without angina pectoris
[2019-12-25] MEDS: QUETIAPINE FUMARATE 25 MG TABLET PO SCH (20:12)
[2019-12-25] MEDS: MIRTAZAPINE TAB 15 MG TAB PO SCH (20:12)
[2019-12-25] MEDS: MELATONIN 3 MG TAB PO SCH (20:12)
[2019-12-25] MEDS: ATORVASTATIN 40 MG TAB PO SCH (20:12)
[2019-12-26] MEDS: RESTASIS~ORDER AWAITING ACTION SCH (06:53)
[2019-12-26] MEDS: PANTOprazole 40 MG TAB PO SCH (08:31)
[2019-12-26] MEDS: POTASSIUM CHLORIDE 20 MEQ TABCR PO SCH (08:31)
--- NOTE | 2019-12-26 16:21 | Discharge Summary ---
Date of Service December 26, 2019 Admission HPI Per Admitting Provider Tess Dorado is an 84yo C female from [facility] presenting after unwitnessed fall resulting in a small SDH. Patient is on Plavix. She thinks that she was in her room and folding clothes when she lost her balance and fell backwards, striking the back of her head on the hard floor. She does not think she lost consciousness. No additional complaints, specifically no CP/palpitations/SOB/nausea/vomiting/diarrhea or constipation. Patient has baseline dementia and is a poor historian. She was trying to get out of bed to use the restroom during most of my encounter. Became frustrated with needing to answer questions and participate in exam. ER Course: Tylenol, Lidocaine Principal Diagnosis Subdural hematoma Discharge Exam Constitutional WD/WN, vitals as above Eyes EOM intact bilaterally; no conjunctival abnormality ENMT external ear and nose normal, oropharynx normal Neck trachea midline, no thyromegaly normal visual inspection Respiratory normal respiratory effort, lungs clear to auscultation no respiratory distress Cardiovascular RRR, no murmur, no edema Gastrointestinal (Abdomen) Inspection/Auscultation: abdomen normal to inspection; abdomen not distended Musculoskeletal no cyanosis or clubbing, extremities motor strength 5/5 Skin no rashes, warm and dry Neurologic moves all extremities and awake Psychiatric Orientation: alert, oriented to person and cooperative Discharge Data Allergies Allergy/AdvReac Type Severity Reaction Status Date / Time aspirin Allergy Severe HIVES/ANAPH Verified 12/17/19 20:21 YLAXIS NSAIDS (Non-Steroidal Allergy Severe HIVES Verified 12/17/19 20:21 Anti-Inflamma Sulfa (Sulfonamide Allergy Intermediate HIVES Verified 12/17/19 20:21 Antibiotics) yellow dye Allergy Mild YELLOW DYE Verified 12/17/19 20:21 #5--HIVES Consultations 12/17/19 20:36 ED Decision to Admit Stat Ordered Studies 12/17/19 17:58 CT cervical spine wo con Stat CT head/brain wo con Stat 12/18/19 07:00 CT head/brain wo con DAILY Hospital Course (1) Acute subdural hematoma: 84yo C female presenting from [place] after unwitnessed fall on 12/16, patient with small parafalcine SDH 1cm in thickness with no midline shift. She is on Plavix. Patient did not wish to have aggressive intervention for this issue. - Hold Plavix for about 1 month. May consider reiimaging in 30 days and restarting Plavix. Indication was for CAD. Will defer to PCP. - Repeat CT head on 12/17 showed mildly decrease size of subdural hematoma. - PT/OT evaluation: patient requires placement. - COVID-19 testing [facility] Of note, patient denies fevers/chills/cough/SOB. No sick contacts or positive contacts. Patient IS NOT a PUI. - No symptoms or signs indicating worsening bleeding. Stable today. No focal complaints. (2) Dementia: Patient with baseline dementia. Became mildly agitated in the ED requiring frequent redirection, attempting to climb out of bed. I have worked with the patient in the past. At baseline, she is pleasant and conversant; however, she is usually only orient to self from my recollection of previous care. At times, she can get agitated when in a new setting (ie, the hospital). - No longer requires 1:1 sitter. - Frequent redirection - Continue Seroquel -> Noted that this has a black box warning for use with dementia; however, given her periodic agitation and danger to self/others, it may be appropriate in this case. - Avoid delirium inducing agents where possible -> Pleasant this morning, but again tired. (3) GERD (gastroesophageal reflux disease): Chronic. Stable. - Continue Protonix (4) Depression: Chronic. - Continue Remeron (5) Hyperlipidemia: Chronic. Stable. - Continue atorvastatin (6) Coronary artery disease: Chronic. Stable. No report of chest pain this morning. - Continue atorvastatin - Hold Plavix as above (7) DVT prophylaxis: SCDs & early ambulation - Heparin contraindicated in the setting of her recent SDH. Total Time Total Time Spent Total Time Spent (In Minutes): 35 Discharge Plan Discharge Items Patient Disposition: Transfer [facility] Reason For Visit: UNWITNESSED FALL,SDH Discharge Diagnosis: Fall with small subdural hematoma Condition on Discharge: Fair Activity: Resume your previous activity Non-emergency contact: Primary Care Provider Call non-emergency contact if: your symptoms worsen Follow-up/Referrals: Ban jimenezBruner [Primary Care Provider] - Diet: Regular Addtl Attending Provider Instructions: Ms. Dorado was admitted after a fall at her personal longterm. She suffered a small subdural hematoma (SDH), but given her dementia, no aggressive neurosurgical care was pursued. Fortunately, she recovered well and a repeat CT scan of her head showed the SDH improving. She should remain off her Plavix for at least 30 days. At that time, her safety/stability can be judged by her PCP/physicians caring for her and determine if it is in her best interest to restart it. She has baseline dementia and usually is oriented to self. She is usually pleasant and conversant; however, especially in new situations can become agitated/upset. Pending Studies at Discharge: No Stand-Alone Forms: [facility], [facility] Skilled Items Patient informed of condition?: Yes DNR: Yes Discharge Level of Care: Skilled Communicable Disease: No Discharge Prognosis: Stable Lines: None Urinary Catheter: No Medications and DC Order Prescriptions: Continued quetiapine [Seroquel] 25 mg tablet 25 mg PO HS RF: 0 polyethylene glycol 3350 [Miralax] 17 gram Powder In Packet 17 g PO DAILY PRN (Reason: Constipation) RF: 0 triamcinolone acetonide 0.1 % cream 1 applic TOPICAL DAILY PRN (Reason: Rash) RF: 0 pantoprazole [Protonix] 40 mg tablet,delayed release (DR/EC) 40 mg PO DAILY RF: 0 Senna Plus 8.6-50 mg Capsule 1 tab-cap PO DAILY PRN (Reason: Constipation) RF: 0 atorvastatin 80 mg tablet 80 mg PO QPM RF: 0 melatonin 3 mg Tablet 3 mg PO HS RF: 0 Restasis 0.05 % dropperette 1 drp OPB HS RF: 0 cholecalciferol (vitamin D3) [Vitamin D3] 125 mcg (5,000 unit) Tablet 5,000 unit PO MOWEFR RF: 0 mirtazapine 15 mg Tablet 15 mg PO HS RF: 0 Discontinued lorazepam 0.5 mg tablet 0.5 mg PO Q8 PRN (Reason: Anxiety) RF: 0 clopidogrel 75 mg tablet 75 mg PO QPM RF: 0 Discharge Orders: Discharge Order (Routine); Ordered 12/26/19 Ordered By: Rudy Harp Admission Data Admit Date/Time: 12/18/19 15:13 Attending Provider: Rudy Harp Admit Provider: Nia Ramirez [facility] Other Providers: Jose Thomson Bryant ; Rudy Harp Other Interventions: Discharge Summary Assessment (RN) Last Done: 12/26/19 09:36 DC Date/Time DO NOT enter until pt leaves facility: 12/26/19 11:00 Coding Level of Care Code D/C Day Management >30 mins Diagnoses Acute subdural hematoma S06.5X9A Dementia F03.91 Dementia behavioral disturbance: with behavioral disturbance Dementia type: unspecified type GERD (gastroesophageal reflux disease) K21.9 Esophagitis presence: esophagitis presence not specified Depression F32.9 Depression Type: major depressive disorder Major depression recurrence: unspecified whether recurrent Active/Remission status: remission status unspecified Hyperlipidemia E78.5 Hyperlipidemia type: unspecified Coronary artery disease I25.10 Coronary Disease-Associated Artery/Lesion type: [place] artery [place] vs. transplanted heart: [place] heart Associated angina: without angina DVT prophylaxis Z29.9
--- NOTE | 2020-01-02 07:12 | Coding Query ---
CODING QUERY To promote full compliance with coding requirements relating to patient care, provider participation is requested in all cases of ranch cook uncertainty. Please assist us with the question(s) below: Coding Question(s): 1. There is documentation in the record of , "Patient IS NOT a PUI". PUI is not a valid abbreviation. Please clarify below, regarding PUI. ( x ) Person Under Investigation ( ) Other: Please Specify ( ) Unknown 2. The ER H&P documents, "I spoke with the patient's family and power of trademark attorney, the patient is not to have aggressive measures, she is not going to have brain surgery. Comfort care was requested." and the chart and Discharge Summary document, "Acute subdural hematoma: 84yo C [place] unwitnessed fall on 12/16, patient with small parafalcine SDH 1cm in thickness with no midline shift. She is on Plavix. Patient did not wish to have aggressive intervention for this issue.". It is not clear if the patient was admitted for Comfort Care or if the patient was admitted for treatment of Acute Subdural Hematoma and became Comfort Care after IP admission or if there was no Comfort Care at all. Please specify below, regarding the Comfort Care documentation and the POA status. ( ) Patient was admitted for Comfort Care ( ) Patient was admitted for treatment of Acute Subdural Hematoma and Comfort Care was placed after admission ( x ) Patient was admitted for treatment of Acute Subdural Hematoma and there was NO Comfort Care placed ( ) Other: Please Specify Physician's Response(s): Thank you Myrtle Olson Principal Diagnosis: "that condition established after study, to be chiefly responsible for occasioning the admission of the patient to the hospital for care." Co-Existing Principal Diagnosis: "when two or more diagnoses equally meet the criteria for principal diagnosis as determined by the circumstances of admission, diagnostic work up, and/or therapy provided, and the Alphabetic Index, Tabular List, or another coding guideline does not provide sequencing direction, any one of the diagnoses may be sequenced first." "When the physician has documented what appears to be a current diagnosis in the body of the record, but has not included the diagnosis in the final diagnostic statement, the physician should be asked whether the diagnosis should be added." (Source [facility]oding [facility] 2 QTR90. p3-4) RUIZ
== END 2019-12-26 11:00 | DRG 86 ==
LOC: 3E 17:31 → ED 17:31 → SUATTDRO 21:19 → 3E 22:12 → SUATTDRO 12-18 15:13

== ENCOUNTER 2020-01-24 22:41 | Inpatient (IN) ==
[2020-01-24] MEDS ORDERED: fentaNYL citrate 100 MCG/2 ML VIAL IV STA ×2 (22:46→23:46)
--- NOTE | 2020-01-24 22:54 | Emergency Department Note ---
Impression & Plan Closed fracture of right hip, Fall ED Provider Note Name: TOMMY GUIDO Age: 85 Sex: F Arrives Via: Ambulance Informant: EMS, Nursing ED Provider: Jovany Cortez MD Chief Complaint: right hip pain Impression: Right hip fracture Medical Decision Makin yr old female with dementia and recent hospitalization following ICH from fall arrives following fall at residential this evening. With history CT head/cervical done which were negative. Exam and imaging confirms right hip fracture with femoral neck location. Distal n/v intact. Pain controlled with small doses fentanyl. Otherwise stable and hospitalist in to evaluate further. Ortho made aware as well Prior Medical Record and Triage/Nursing Notes reviewed by Me Additional history obtained from record, ems Differentials:Fracture, dislocation, contusion, intracranial, neurologic, electrolyte dysfunction, infection, as well as other pathologies. Vital Signs: reviewed and remarkable for HTN Interventions: Fentanyl 50mcg IV x 2 Labs:Reviewed and remarkable for no significant abnormalities Imaging:X ray results are stated below per my interpretation: Chest: 1 view: ICD/Pacemaker, No infiltrate, no effusion, normal cardiac border. Pelvis/right femur: 4 view: impacted right femoral neck fracture without dislocation EKG:Per My Interpretation: Indication Pre-Op: Poor baseline, though appears atrial pacing at 16 bpm, qtc 428. No Ectopy. No Ischemia. Compared to EKG 11/04/19, no significant changes. Cardiac/Tele Monitoring: Cardiac Monitoring: An Order was placed for continuous cardiac monitoring. The monitor shows a rate of 60 with a paced atrial rhythm. Consults:Dr Ramirez Hospitalist, Dr Fried Orthopedics Plan: Disposition:Hospitalization. Condition: Fair Blood pressure:Elevated - Referred to Hospitalist Prescriptions:none PDMP: n/a History of Present Illness:85 / F with dementia and recent trip to ED following fall found laying on floor at residential. Pain with movement of right hip. Patient denies other pain but due to dementia difficult getting story from her. Per Chart on no blood thinners. Arrives via BLS EMS. No medications prior to arrival. Unknown down time. Assumed mechanical fall but unclear. No other trauma reported. Laying still seems to make pain better. ROS: SUnable to obtain secondary to Dementia Past Medical History:Dementia, CAD, DLP, GERD, Subdurral Past Surgical History:Cholecystectomy Family History:Unable to obtain secondary to Dementia Social History:Lives at [facility] in dementia unit Home Medications:See Below Allergies:asa, nsaids, sulfa, yellow dye Vitals:Blood Pressure: 176/68, Pulse 62, RR 18, T 36.9C, O2 99% on RA Physical Exam: GENERAL: Patient is elderly appearing and in moderate distress. EYES: No scleral icterus, unremarkable pupils. ENT: Mucous membranes moist, no nasal congestion. NECK: No masses appreciated, nomeningismus, trachea is midline. RESPIRATORY: No dyspnea. Clear to auscultation and equal bilaterally. No wheeze, no rhonchi. CARDIOVASCULAR: Regular rate and rhythm.No murmurs, rubs, gallops appreciated. GASTROINTESTINAL: Abdomen soft, non-tender, no peritonitis.Bowel sounds positive.No masses appreciated. BACK: No midline tenderness, no CVA tenderness EXTREMITIES: Shortened externally rotated right leg with good pulses and able to move toes. Severe pain with ROM right hip and palpation of upper right thigh. Compartment soft. Otherwise normal motion all extremities, no cyanosis, no edema. NEUROLOGIC: Dementia, no acute motor or sensory deficits, no focal weakness, cranial nerves grossly intact. SKIN: No rash, no jaundice, no diaphoresis. GCS: 15 ED Course: Times/Reassessments: Stable, pain controlled with fentanyl Jovany Cortez MD Past Med/Surg History Medical History (Updated 01/25/20 @ 04:15 by Jovany Cortez MD) Acute cholecystitis Bilateral elbow fractures (Acute) Dementia (Acute) Diabetes mellitus Fracture, clavicle (Acute) History of pacemaker Social History Preferred Language: [place] Communication Ability: Impaired Stone Rigger Required: No Beliefs That Will Affect Care: None Current Living Situation: Personal Care Facility and Other Current Living Situation Comment: unable to answer questions Feels Safe at Home: Yes Smoking Status: Never smoker Allergies Allergies Allergy/AdvReac Type Severity Reaction Status Date / Time aspirin Allergy Severe HIVES/ANAPH Verified 01/24/20 23:49 YLAXIS NSAIDS (Non-Steroidal Allergy Severe HIVES Verified 01/24/20 23:49 Anti-Inflamma Sulfa (Sulfonamide Allergy Intermediate HIVES Verified 01/24/20 23:49 Antibiotics) yellow dye Allergy Mild YELLOW DYE Verified 01/24/20 23:49 #5--HIVES celecoxib [From Celebrex] Allergy Unknown Verified 01/24/20 23:49 metformin Allergy Unknown Verified 01/24/20 23:49 Home Meds Home Medications Medication Instructions Recorded Confirmed atorvastatin 80 mg PO QPM 09/17/19 01/24/20 melatonin 3 mg PO HS 09/17/19 01/24/20 Senna Plus 1 tab-cap PO DAILY PRN 11/13/19 01/24/20 pantoprazole [Protonix] 40 mg PO DAILY 11/13/19 01/24/20 polyethylene glycol 3350 [Miralax] 17 g PO DAILY PRN 11/13/19 01/24/20 quetiapine [Seroquel] 25 mg PO TID 11/13/19 01/24/20 mirtazapine 15 mg PO HS 12/17/19 01/24/20 acetaminophen 650 mg PO Q4 PRN MDD 3gm 01/14/20 01/24/20 potassium chloride 20 meq PO BID 01/14/20 01/24/20 Results & Data (ED) Vital Signs Vital Signs - 24 hr 01/24/20 23:12 01/25/20 00:44 Temperature 36.9 C Temperature Source Oral Pulse Rate 62 Pulse Rate [Apical] 63 Respiratory Rate 18 16 Respiratory Effort / Characteristics Non-Labored Spontaneous Respiratory Depth Normal Normal Blood Pressure 176/68 H Blood Pressure [Right Arm] 178/75 H Blood Pressure Mean 104 Blood Pressure Mean [Right Arm] 109 Blood Pressure Position [Right Arm] Lying Pulse Oximetry 99 95 Oxygen Delivery Method Room Air Room Air Sepsis Recent Fever Within 48 Hours No Sepsis New/Unexplained Change in Mental Status No Sepsis Action Taken by Nursing No Action Required Laboratory Data Result diagrams: 01/24/20 23:26 01/24/20 23:26 Lab Results 01/24/20 01/24/20 01/24/20 Range/Units 23:26 23:26 23:26 WBC 10.49 (4.8-10.8) K/uL RBC 4.14 L (4.2-5.4) M/uL Hgb 12.7 (12.0-16.0) g/dL Hct 39.0 (37-47) % MCV 94.2 (80-100) fL MCH 30.7 (25-34) pg MCHC 32.6 (32-36) g/dL RDW Std Deviation 47.8 H (36.4-46.3) fL RDW Coeff of Jasen 13.9 (11.5-14.5) % Plt Count 238 (130-400) K/uL MPV 10.2 (7.4-10.4) fL Immature Gran % (Auto) 0.2 % Neut % (Auto) 76.9 % Lymph % (Auto) 14.8 % Wells % (Auto) 6.3 % Eos % (Auto) 1.7 % Baso % (Auto) 0.1 % Neut # (Auto) 8.07 H (1.4-6.5) K/uL Lymph # (Auto) 1.55 (1.2-3.4) K/uL Wells # (Auto) 0.66 H (0.11-0.59) K/uL Eos # (Auto) 0.18 (0-0.5) K/uL Baso # (Auto) 0.01 (0-0.2) K/uL Immature Gran # (Auto) 0.02 (0.00-0.02) K/uL PT 10.8 (9.0-12.0) Seconds INR 1.0 (0.9-1.1) APTT 27.1 (21.0-31.0) Seconds PTT Ratio 1.0 Sodium 144 (136-145) mmol/L Potassium 3.2 L (3.5-5.1) mmol/L Chloride 110 H (98-107) mmol/L Carbon Dioxide 25 (21-32) mmol/L Anion Gap 9.0 (3-11) BUN 14 (7-18) mg/dl Creatinine 0.87 (0.6-1.2) mg/dl Est Cr Clr Drug Dosing 46.9 ml/min Est GFR ( Amer) 70.9 Est GFR (Non-Af Amer) 61.2 BUN/Creatinine Ratio 16.2 (10-20) Glucose 121 H (70-99) mg/dl Calcium 9.2 (8.5-10.1) mg/dl Phosphorus 1.8 L (2.5-4.9) mg/dl Magnesium 1.7 L (1.8-2.4) mg/dl Total Bilirubin 0.5 (0.2-1) mg/dl Direct Bilirubin 0.2 (0-0.2) mg/dl AST 26 (15-37) U/L ALT 18 (12-78) U/L Alkaline Phosphatase 140 H (45-117) U/L Total Creatine Kinase 168 (26-192) U/L Troponin I < 0.015 (0-0.045) ng/ml Total Protein 7.5 (6.4-8.2) gm/dl Albumin 3.4 (3.4-5.0) gm/dl Urine Color Urine Appearance (Clear) Urine pH (4.5-7.5) Ur Specific [place] (1.000-1.030) Urine Protein (Negative) Urine Glucose (UA) (Negative) Urine Ketones (Negative) Urine Blood (Negative) Urine Nitrite (Negative) Urine Bilirubin (Negative) Urine Urobilinogen (Negative) Ur Leukocyte Esterase (Negative) 01/25/20 Range/Units 00:36 WBC (4.8-10.8) K/uL RBC (4.2-5.4) M/uL Hgb (12.0-16.0) g/dL Hct (37-47) % MCV (80-100) fL MCH (25-34) pg MCHC (32-36) g/dL RDW Std Deviation (36.4-46.3) fL RDW Coeff of Jasen (11.5-14.5) % Plt Count (130-400) K/uL MPV (7.4-10.4) fL Immature Gran % (Auto) % Neut % (Auto) % Lymph % (Auto) % Wells % (Auto) % Eos % (Auto) % Baso % (Auto) % Neut # (Auto) (1.4-6.5) K/uL Lymph # (Auto) (1.2-3.4) K/uL Wells # (Auto) (0.11-0.59) K/uL Eos # (Auto) (0-0.5) K/uL Baso # (Auto) (0-0.2) K/uL Immature Gran # (Auto) (0.00-0.02) K/uL PT (9.0-12.0) Seconds INR (0.9-1.1) APTT (21.0-31.0) Seconds PTT Ratio Sodium (136-145) mmol/L Potassium (3.5-5.1) mmol/L Chloride (98-107) mmol/L Carbon Dioxide (21-32) mmol/L Anion Gap (3-11) BUN (7-18) mg/dl Creatinine (0.6-1.2) mg/dl Est Cr Clr Drug Dosing ml/min Est GFR ( Amer) Est GFR (Non-Af Amer) BUN/Creatinine Ratio (10-20) Glucose (70-99) mg/dl Calcium (8.5-10.1) mg/dl Phosphorus (2.5-4.9) mg/dl Magnesium (1.8-2.4) mg/dl Total Bilirubin (0.2-1) mg/dl Direct Bilirubin (0-0.2) mg/dl AST (15-37) U/L ALT (12-78) U/L Alkaline Phosphatase (45-117) U/L Total Creatine Kinase (26-192) U/L Troponin I (0-0.045) ng/ml Total Protein (6.4-8.2) gm/dl Albumin (3.4-5.0) gm/dl Urine Color Yellow Urine Appearance Clear (Clear) Urine pH 7.0 (4.5-7.5) Ur Specific [place] 1.016 (1.000-1.030) Urine Protein Negative (Negative) Urine Glucose (UA) Negative (Negative) Urine Ketones 1+ H (Negative) Urine Blood Negative (Negative) Urine Nitrite Negative (Negative) Urine Bilirubin Negative (Negative) Urine Urobilinogen Negative (Negative) Ur Leukocyte Esterase Negative (Negative) Administered Medications Lactated Ringer's (Lr) 1,000 mls @ 80 mls/hr IV .[id number] [facility], 1928–1983 Stop: 01/26/20 03:23 Last Admin: 01/25/20 03:03 Dose: 80 mls/hr Documented by: [id number] Discontinued Medications Fentanyl Citrate (Fentanyl Citrate) 25 mcg IV NOW STA Stop: 01/24/20 22:47 Last Admin: 01/24/20 23:21 Dose: 25 mcg Documented by: [id number] Fentanyl Citrate (Fentanyl Citrate) 25 mcg IV NOW STA Stop: 01/24/20 23:47 Last Admin: 01/25/20 00:28 Dose: 25 mcg Documented by: [id number] Discharge Plan Visit Data *Final* Discharge Date/Time: 01/25/20 02:12 Chief Complaint: Fall Stated Complaint: fall/ R hip pain / [place] ED Provider: Jovany Cortez Discharge Problem: Closed fracture of right hip, Fall Patient Disposition: Admitted As Inpatient Discharge Instructions Interventions: ED Discharge Assessment Last Done: 01/25/20 02:12 Discharge Problem: Closed fracture of right hip Qualifiers: Encounter type: initial encounter Qualified Code(s): S72.001A - Fracture of unspecified part of neck of right femur, initial encounter for closed fracture Fall Qualifiers: Encounter type: initial encounter Qualified Code(s): W19.XXXA - Unspecified fall, initial encounter
[2020-01-24 23:44] LABS: Basophils # (auto) 0.01 K/uL (0-0.2); Basophils % (auto) 0.1 %; Eosinophils # (auto) 0.18 K/uL (0-0.5); Eosinophils % (auto) 1.7 %; Hemoglobin 12.7 g/dL (12.0-16.0); Immature Granulocytes # (auto) 0.02 K/uL (0.00-0.02); Immature Granulocytes % (auto) 0.2 %; Lymphocytes # (auto) 1.55 K/uL (1.2-3.4); Lymphocytes % (auto) 14.8 %; Mean Corpuscular Hemoglobin 30.7 pg (25-34); Mean Corpuscular Hgb Conc 32.6 g/dL (32-36); Mean Corpuscular Volume 94.2 fL (80-100); Mean Platelet Volume 10.2 fL (7.4-10.4); Monocytes # (auto) 0.66 K/uL (0.11-0.59); Monocytes % (auto) 6.3 %; Neutrophils # (auto) 8.07 K/uL (1.4-6.5); Neutrophils % (auto) 76.9 %; Platelet Count 238 K/uL (130-400); RDW Coefficient of Variation 13.9 % (11.5-14.5); RDW Standard Deviation 47.8 fL (36.4-46.3); Red Blood Count 4.14 M/uL (4.2-5.4); White Blood Count 10.49 K/uL (4.8-10.8)
[2020-01-24 23:57] LABS: Partial Thromboplastin Time 27.1 Seconds (21.0-31.0); Prothrombin Time 10.8 Seconds (9.0-12.0)
[2020-01-25 00:13] LABS: Alanine Aminotransferase 18 U/L (12-78); Albumin Level 3.4 gm/dl (3.4-5.0); Aspartate Aminotransferase 26 U/L (15-37); BUN Creatinine Ratio 16.2 (10-20); Blood Urea Nitrogen 14 mg/dl (7-18); Calcium 9.2 mg/dl (8.5-10.1); Carbon Dioxide 25 mmol/L (21-32); Chloride 110 mmol/L (98-107); Creatinine Clr Calc Pharmacy 46.9 ml/min; Est GFR (African American) 70.9; Est GFR (Non-African American) 61.2; Glucose 121 mg/dl (70-99); Potassium 3.2 mmol/L (3.5-5.1); Sodium 144 mmol/L (136-145)
[2020-01-25 00:17] LABS: Alkaline Phosphatase 140 U/L (45-117); Bilirubin Direct 0.2 mg/dl (0-0.2); Bilirubin,Total 0.5 mg/dl (0.2-1); Creatine Kinase 168 U/L (26-192); Total Protein 7.5 gm/dl (6.4-8.2); Troponin I < 0.015 ng/ml (0-0.045)
[2020-01-25 00:51] LABS: Appearance Urine Clear (Clear); Bilirubin Urine Negative (Negative); Blood Urine Negative (Negative); Color Urine Yellow; Glucose Urine UA Negative (Negative); Ketones Urine 1+ (Negative); Leukocyte Esterase Urine Negative (Negative); Nitrite Urine Negative (Negative); Protein Urine Negative (Negative); Specific Gravity Urine 1.016 (1.000-1.030); Urobilinogen Urine Negative (Negative)
--- NOTE | 2020-01-25 01:10 | History & Physical Report ---
Date of Service January 25, 2020 Assessment & Plan (1) Closed right hip fracture: Patient with presumed mechanical fall at her [facility] resulting in fracture of right femoral neck -Admission to medical floor -Elevate RLE -Pain control with Tylenol, Oxycodone, Morphine PRN -Bowel regimen PRN -Keep NPO for possible surgical intervention -Orthopedic Surgery consultation appreciated Updated daughter, Alejandrina Jain - [phone] Left message with son - Man Dorado - [phone] Present on Admission?: Yes (2) Fall: As above, presumed mechanical fall. Patient with history of the same. She denies CP, palpitations, dizziness, numbness/weakness preceding the fall -Managment of right hip fracture as above -PT/OT evaluation to be ordered post operatively -Anticipate return to fpc, possible rehab. Will order Covid testing for pre-operative screening and for return to fpc. Patient IS NOT a PUI. -Fall precautions Present on Admission?: Yes (3) Dementia: Patient appears to have fairly significant cognitive impairment at baseline. Behavioral disturbance in the past as well as delirium. -Delirium prevention strategies with frequent orientation, maintenance of sleep/wake cycle, ambulation when able -May consider Aricept or Namenda in the future to help with neurocognitive symptoms. -Continue Seroquel 25mg po TID - patient on this medication at home. At this point, more benefit than risk despite black box warning -Continue Remeron -Continue Melatonin Present on Admission?: Yes (4) Diabetes mellitus: [id number]=5 in September 2019. Blood sugar presently 121. Patient not on any diabetes medications. -ISS -Goal blood sugar 100 - 140 Present on Admission?: Yes (5) GERD (gastroesophageal reflux disease): Chronic. Stable -Continue Protonix Present on Admission?: Yes (6) Depression: Chronic. Stable -Continue Remeron Present on Admission?: Yes (7) Hyperlipidemia: Chronic. Stable -Continue Atorvastatin Present on Admission?: Yes (8) Coronary artery disease: Chronic. Stable. Patient denies chest pain, palpitations, SOB. No EKG changes of ischemia, troponin negative. She was previously on Plavix for CAD which was discontinued during her last hospital stay due to fall resulting in SDH. Will continue to hold all antiplatelets in anticipation of surgery. Plavix to be readdressed by PCP. 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 Patient is confused at baseline and unable to provide clear details of the events preceding the fall. She says she may have been in the kitchen or possibly the bathroom looking for apples. She thinks she tripped over her feet and fell onto her right hip. She does not think she hit her head or lost consciousness. She denies chest pain, palpitations or dizziness. Patient was unable to get up. She ws recently admitted in December for an unwitnessed fall resulting in a small SDH. She was on Plavix at the time. She was managed conservatively and ultimately returned to [facility] with instruction to hold her Plavix at least 30 days and to followup with her PCP. Per discussion with patient's daughter she reports that she is confused at baseline. She has poor memory and is typically only oriented to self. She requires some assistance with dressing and performing ADLs. She ambulates without any assist devices but often relies on the wall or furniture for stability. She has had multiple falls in the past but told me that she enjoys going for walks. On arrival to the ER she was found to be afebrile, HD stable. She was in considerable pain and was administered Fentanyl 25mcg IV with improvement, brief drop in O2 saturation requiring supplemental O2. She is complaining of some right hip discomfort presently, otherwise offers no complaints. She is asking about her parents and her siblings and says she feels bad that she hasn't seen them recently. ER Course: Fentanyl 25mcg IV x 2 Allergies Allergy/AdvReac Type Severity Reaction Status Date / Time aspirin Allergy Severe HIVES/ANAPH Verified 01/24/20 23:49 YLAXIS NSAIDS (Non-Steroidal Allergy Severe HIVES Verified 01/24/20 23:49 Anti-Inflamma Sulfa (Sulfonamide Allergy Intermediate HIVES Verified 01/24/20 23:49 Antibiotics) yellow dye Allergy Mild YELLOW DYE Verified 01/24/20 23:49 #5--HIVES celecoxib [From Celebrex] Allergy Unknown Verified 01/24/20 23:49 metformin Allergy Unknown Verified 01/24/20 23:49 Home Medications Home Medications Medication Instructions Recorded Confirmed Type atorvastatin 80 mg PO QPM 09/17/19 01/24/20 History melatonin 3 mg PO HS 09/17/19 01/24/20 History Senna Plus 1 tab-cap PO DAILY PRN 11/13/19 01/24/20 History pantoprazole [Protonix] 40 mg PO DAILY 11/13/19 01/24/20 History polyethylene glycol 3350 [Miralax] 17 g PO DAILY PRN 11/13/19 01/24/20 History quetiapine [Seroquel] 25 mg PO TID 11/13/19 01/24/20 History mirtazapine 15 mg PO HS 12/17/19 01/24/20 History acetaminophen 650 mg PO Q4 PRN MDD 3gm 01/14/20 01/24/20 History potassium chloride 20 meq PO BID 01/14/20 01/24/20 History Past Med/Surg History Medical History (Updated 01/25/20 @ 02:24 by Nia Ramirez DO) Acute cholecystitis Bilateral elbow fractures (Acute) Dementia (Acute) Diabetes mellitus Fracture, clavicle (Acute) History of pacemaker Social History Preferred Language: [place] Communication Ability: Impaired Well Control Instructor Required: No Beliefs That Will Affect Care: None [facility] Current Living Situation Comment: Dementia unit Feels Safe at Home: Yes Smoking Status: Never smoker Second Hand Exposure: No ; Hx Alcohol Use: No Hx Substance Use: No Review of Systems Review of Systems: Unobtainable due to cognitive status Physical Exam Physical Exam: General: patient resting comfortably, NAD, non-toxic in appearance, AA&O to self. Does not clearly answer questions Skin: warm, dry, intact, no rashes or lesions, no bruising or hematoma HEENT: NC/AT, PERRL, EOMI, anicteric sclera, conjunctiva without injection, external ear normal to inspection and nontender, nares patent, dry mucus membranes, dentition intact, no oropharyngeal lesions, neck supple, trachea midline, no LAD, no thyromegaly, no JVD Heart: +S1/S2, regular, no m/r/g Lungs: equal air entry bilaterally with anterior auscultation, no rales/rhonchi/wheezes Abd: +BS, soft, NT/ND, no masses/organomegaly/ascites Ext: warm, 2+ pulses in UE/LE bilaterally, no clubbing/cyanosis or edema, slight external rotation of RLE Neuro: nonfocal, patient AA&O to self, patient confused and speaking about her parents, no facial droop, moving UE and LLE with 5/5 strength Results & Data Results & Data ([facility]) Vital Signs (Past 12 Hours) Vital Signs Temp Pulse Pulse Resp BP BP Pulse Ox 01/25/20 00:44 63 16 178/75 H 95 01/24/20 23:12 36.9 C 62 18 176/68 H 99 Laboratory Results Lab Results 01/24/20 01/24/20 01/24/20 Range/Units 23:26 23:26 23:26 WBC 10.49 (4.8-10.8) K/uL RBC 4.14 L (4.2-5.4) M/uL Hgb 12.7 (12.0-16.0) g/dL Hct 39.0 (37-47) % MCV 94.2 (80-100) fL MCH 30.7 (25-34) pg MCHC 32.6 (32-36) g/dL RDW Std Deviation 47.8 H (36.4-46.3) fL RDW Coeff of Jasen 13.9 (11.5-14.5) % Plt Count 238 (130-400) K/uL MPV 10.2 (7.4-10.4) fL Immature Gran % (Auto) 0.2 % Neut % (Auto) 76.9 % Lymph % (Auto) 14.8 % Dade % (Auto) 6.3 % Eos % (Auto) 1.7 % Baso % (Auto) 0.1 % Neut # (Auto) 8.07 H (1.4-6.5) K/uL Lymph # (Auto) 1.55 (1.2-3.4) K/uL Dade # (Auto) 0.66 H (0.11-0.59) K/uL Eos # (Auto) 0.18 (0-0.5) K/uL Baso # (Auto) 0.01 (0-0.2) K/uL Immature Gran # (Auto) 0.02 (0.00-0.02) K/uL PT 10.8 (9.0-12.0) Seconds INR 1.0 (0.9-1.1) APTT 27.1 (21.0-31.0) Seconds PTT Ratio 1.0 Sodium 144 (136-145) mmol/L Potassium 3.2 L (3.5-5.1) mmol/L Chloride 110 H (98-107) mmol/L Carbon Dioxide 25 (21-32) mmol/L Anion Gap 9.0 (3-11) BUN 14 (7-18) mg/dl Creatinine 0.87 (0.6-1.2) mg/dl Est Cr Clr Drug Dosing 46.9 ml/min Est GFR ( Amer) 70.9 Est GFR (Non-Af Amer) 61.2 BUN/Creatinine Ratio 16.2 (10-20) Glucose 121 H (70-99) mg/dl Calcium 9.2 (8.5-10.1) mg/dl Total Bilirubin 0.5 (0.2-1) mg/dl Direct Bilirubin 0.2 (0-0.2) mg/dl AST 26 (15-37) U/L ALT 18 (12-78) U/L Alkaline Phosphatase 140 H (45-117) U/L Total Creatine Kinase 168 (26-192) U/L Troponin I < 0.015 (0-0.045) ng/ml Total Protein 7.5 (6.4-8.2) gm/dl Albumin 3.4 (3.4-5.0) gm/dl Urine Color Urine Appearance (Clear) Urine pH (4.5-7.5) Ur Specific [place] (1.000-1.030) Urine Protein (Negative) Urine Glucose (UA) (Negative) Urine Ketones (Negative) Urine Blood (Negative) Urine Nitrite (Negative) Urine Bilirubin (Negative) Urine Urobilinogen (Negative) Ur Leukocyte Esterase (Negative) 01/25/20 Range/Units 00:36 WBC (4.8-10.8) K/uL RBC (4.2-5.4) M/uL Hgb (12.0-16.0) g/dL Hct (37-47) % MCV (80-100) fL MCH (25-34) pg MCHC (32-36) g/dL RDW Std Deviation (36.4-46.3) fL RDW Coeff of Jasen (11.5-14.5) % Plt Count (130-400) K/uL MPV (7.4-10.4) fL Immature Gran % (Auto) % Neut % (Auto) % Lymph % (Auto) % Dade % (Auto) % Eos % (Auto) % Baso % (Auto) % Neut # (Auto) (1.4-6.5) K/uL Lymph # (Auto) (1.2-3.4) K/uL Dade # (Auto) (0.11-0.59) K/uL Eos # (Auto) (0-0.5) K/uL Baso # (Auto) (0-0.2) K/uL Immature Gran # (Auto) (0.00-0.02) K/uL PT (9.0-12.0) Seconds INR (0.9-1.1) APTT (21.0-31.0) Seconds PTT Ratio Sodium (136-145) mmol/L Potassium (3.5-5.1) mmol/L Chloride (98-107) mmol/L Carbon Dioxide (21-32) mmol/L Anion Gap (3-11) BUN (7-18) mg/dl Creatinine (0.6-1.2) mg/dl Est Cr Clr Drug Dosing ml/min Est GFR ( Amer) Est GFR (Non-Af Amer) BUN/Creatinine Ratio (10-20) Glucose (70-99) mg/dl Calcium (8.5-10.1) mg/dl Total Bilirubin (0.2-1) mg/dl Direct Bilirubin (0-0.2) mg/dl AST (15-37) U/L ALT (12-78) U/L Alkaline Phosphatase (45-117) U/L Total Creatine Kinase (26-192) U/L Troponin I (0-0.045) ng/ml Total Protein (6.4-8.2) gm/dl Albumin (3.4-5.0) gm/dl Urine Color Yellow Urine Appearance Clear (Clear) Urine pH 7.0 (4.5-7.5) Ur Specific [place] 1.016 (1.000-1.030) Urine Protein Negative (Negative) Urine Glucose (UA) Negative (Negative) Urine Ketones 1+ H (Negative) Urine Blood Negative (Negative) Urine Nitrite Negative (Negative) Urine Bilirubin Negative (Negative) Urine Urobilinogen Negative (Negative) Ur Leukocyte Esterase Negative (Negative) Diagnostic Findings CT Head: Per STAT-rad - No intracranial hemorrhage. Parenchymal atrophy and chronic microvascular ischemic changes. No fracture CT C-spine: Per STAT-rad - No fracture in the cervical spine CXR - per my interpretation: Poor inspiratory effort, trachea is midline, normal cardiac shadow with AICD in place, pronounced interstitial markings similar to prior, no infiltrate, effusions, edema or PTX ECG Additional Comments: The study shows atrial paced rhythm, leftward axis, PW=822, QRS=84, JJa=506, No acute ischemic changes Code Status & VTE Plan Code Status DNR/DNI VTE Prophylaxis Plan VTE Prophylaxis will be ordered: Yes PG Care Time/CCT Total # of Minutes Spent Total Time Spent with Patient: Total time spent is greater than 50% in coordination of care (as documented) at patient's floor/unit and/or counseling patient: Coding Level of Care Code 44596 Initial Inpt Care Lvl 3 Diagnoses Closed right hip fracture S72.001A Encounter type: initial encounter Fall W19.XXXA Encounter type: initial encounter Dementia F03.91 Dementia behavioral disturbance: with behavioral disturbance Dementia type: unspecified type Diabetes mellitus E11.9 Diabetes mellitus complication status: without complication Diabetes mellitus machine long goods helper insulin use: without skilled nursing use Diabetes mellitus type: type 2 GERD (gastroesophageal reflux disease) K21.9 Esophagitis presence: esophagitis presence not specified Depression F32.9 Active/Remission status: remission status unspecified Depression Type: major depressive disorder Major depression recurrence: unspecified whether recurrent Hyperlipidemia E78.5 Hyperlipidemia type: unspecified Coronary artery disease I25.10 Associated angina: without angina Coronary Disease-Associated Artery/Lesion type: platinum artery [place] vs. transplanted heart: platinum heart (1) Diabetes mellitus Diabetes mellitus complication status: without complication Diabetes mellitus machine long goods helper insulin use: without machine long goods helper use Diabetes mellitus type: type 2 Qualified Code(s): E11.9 - Type 2 diabetes mellitus without complications (2) Coronary artery disease Associated angina: without angina Coronary Disease-Associated Artery/Lesion type: platinum artery [place] vs. transplanted heart: platinum heart Qualified Code(s): I25.10 - Atherosclerotic heart disease of platinum coronary artery without angina pectoris (3) Dementia Dementia behavioral disturbance: with behavioral disturbance Dementia type: unspecified type Qualified Code(s): F03.91 - Unspecified dementia with behavioral disturbance (4) Depression Active/Remission status: remission status unspecified Depression Type: major depressive disorder Major depression recurrence: unspecified whether recurrent Qualified Code(s): F32.9 - Major depressive disorder, single episode, unspecified (5) Hyperlipidemia Hyperlipidemia type: unspecified Qualified Code(s): E78.5 - Hyperlipidemia, unspecified (6) GERD (gastroesophageal reflux disease) Esophagitis presence: esophagitis presence not specified Qualified Code(s): K21.9 - Gastro-esophageal reflux disease without esophagitis (7) Fall Encounter type: initial encounter Qualified Code(s): W19.XXXA - Unspecified fall, initial encounter (8) Closed right hip fracture Encounter type: initial encounter Qualified Code(s): S72.001A - Fracture of unspecified part of neck of right femur, initial encounter for closed fracture
[2020-01-25] MEDS ORDERED: MAGNESIUM HYDROXIDE SUSP 30 ML UDC PO PRN ×2 (02:24→15:48)
[2020-01-25] MEDS ORDERED: MoRPHine SULFATE 2 MG/ML CARP IV PRN (02:24)
[2020-01-25] MEDS ORDERED: bisacodyL 10 MG SUPP PR PRN ×2 (02:24→15:48)
[2020-01-25] MEDS ORDERED: NALOXONE HCL 0.4 MG/1 ML VIAL/CARP IV PRN ×3 (02:24→15:48)
[2020-01-25] MEDS ORDERED: ACETAMINOPHEN 325 MG TAB PO PRN (02:24)
[2020-01-25] MEDS ORDERED: POLYETHYLENE (MIRALAX) 17 GM PACK PO PRN (02:24)
[2020-01-25] MEDS ORDERED: DEXTROSE 50% 50 ML SYRINGE IV PRN (02:31)
[2020-01-25] MEDS ORDERED: CARBOHYDRATES FOR HYPOGLYCEMIA PO PRN (02:31)
[2020-01-25] MEDS ORDERED: GLUCOSE 40% GEL 15 GM TUBE PO PRN (02:31)
[2020-01-25] MEDS ORDERED: GLUCAGON FOR INJ 1 MG VIAL SQ PRN (02:31)
[2020-01-25] MEDS ORDERED: GLUCOSE 10 TABS/TUBE PO PRN (02:31)
[2020-01-25] MEDS ORDERED: DOCUSATE SODIUM/SENNA 50/8.6MG TAB PO PRN (02:43)
[2020-01-25 02:47] LABS: Magnesium 1.7 mg/dl (1.8-2.4); Phosphorus 1.8 mg/dl (2.5-4.9)
[2020-01-25] MEDS: LACTATED RINGER'S 1,000 ML IV SCH ×2 (03:03→18:26)
[2020-01-25] MEDS: OXYCODONE HCL IR 5 MG TAB (IMMEDIATE RELEASE) PO PRN (06:24)
[2020-01-25] MEDS: PANTOprazole 40 MG TAB PO SCH (06:24)
--- NOTE | 2020-01-25 07:41 | Electrocardiogram Report ---
Test Reason : Blood Pressure : / mmHG Vent. Rate : 060 BPM Atrial Rate : 060 BPM P-R Int : 176 ms QRS Dur : 084 ms QT Int : 428 ms P-R-T Axes : 067 -22 113 degrees QTc Int : 428 ms Poor data quality, interpretation may be adversely affected Atrial-paced rhythm Left ventricular hypertrophy with repolarization abnormality Septal infarct (cited on or before 08-DEC-2014) Inferior infarct Abnormal ECG When compared with ECG of 13-NOV-2019 20:39, Electronic atrial pacemaker has replaced Sinus rhythm Questionable change in initial forces of Anterior leads Confirmed by Gary De Jesus ([id number]) on 01/25/2020 7:41:14 AM [facility] Confirmed By:Gary De Jesus
--- NOTE | 2020-01-25 07:44 | CT Scan Report ---
CT head/brain wo con CLINICAL HISTORY: Head pain status post trauma COMPARISON STUDY: 12/18/2019 TECHNIQUE: Axial CT of the brain is performed from the vertex to the skull base. IV contrast was not administered for this examination. A dose lowering technique was utilized adhering to the principles of ALARA. CT DOSE: 913.66 mGy.cm FINDINGS: No intra or extra-axial mass lesions are visualized. There is no CT evidence of acute cortical infarc tion. There is no evidence of midline shift. There is no acute hemorrhage. No calvarial fractures ar e visualized. There are patchy white matter hypodensities likely on a small vessel basis. There is ventricular dilatation, similar to the prior study and likely secondary to volume loss. There is no evidence of acute sinusitis IMPRESSION: No acute intracranial findings ACT 112: Negative or not required by law. Electronically signed by: Blue Cherry M.D. 01/25/2020 7:42 AM
--- NOTE | 2020-01-25 07:49 | CT Scan Report ---
CT OF THE CERVICAL SPINE CLINICAL HISTORY: Neck pain status post trauma COMPARISON STUDY: December 17, 2019 CT DOSE: TECHNIQUE: CT scan of the cervical spine was performed from the skull base to the thoracic inlet. Lizzie ges are reviewed in the axial, sagittal, and coronal planes. IV contrast was not administered for thi s examination. A dose lowering technique was utilized adhering to the principles of ALARA. FINDINGS: The visualized portions of the lung apices reveal no evidence of pneumothorax. The prevertebral soft tissues are normal. No fractures or subluxations are visualized. There are multilevel degenerative changes IMPRESSION: No evidence of acute fracture or traumatic subluxation. ACT 112: Negative or not required by law. Electronically signed by: Blue Cherry M.D. 01/25/2020 7:47 AM
[2020-01-25] MEDS: QUETIAPINE FUMARATE 25 MG TABLET PO SCH ×4 (07:59→22:08)
[2020-01-25] MEDS: POTASSIUM CHLORIDE 20 MEQ TABCR PO SCH ×2 (08:16→22:08)
--- NOTE | 2020-01-25 08:39 | XRay Report ---
XR chest 1V portable CLINICAL HISTORY: Preoperative chest. Trauma. COMPARISON STUDY: 10/24/2019 FINDINGS: There is a left-sided pacer/defibrillator. The cardiac and mediastinal contours remain stab le. There is chronic interstitial thickening. There is no lobar consolidation. There are no pleural e ffusions.[ IMPRESSION: No active disease in the chest. ACT 112: Negative or not required by law. Electronically signed by: lBue Cherry M.D. 01/25/2020 8:38 AM
--- NOTE | 2020-01-25 08:42 | XRay Report ---
XR pelvis 1-2V routine CLINICAL HISTORY: right hip injury COMPARISON: 11/13/2019 DISCUSSION: There is a nondisplaced right hip fracture. Based on the provided views is difficult to d etermine whether this is subcapital or basicervical. Degenerative changes are present within the cerv ical spine. The previously defined right iliac wing deformity remain stable. IMPRESSION: Nondisplaced right hip fracture. ACT 112: Negative or not required by law. Electronically signed by: Blue Cherry M.D. 01/25/2020 8:41 AM
--- NOTE | 2020-01-25 08:50 | XRay Report ---
XR femur RT 2V routine CLINICAL HISTORY: Right hip pain status post trauma COMPARISON: AP pelvis dated 11/04/2019 DISCUSSION: There is an acute subcapital right hip fracture which is mildly displaced. There is mild persistent irregularity of the lateral margin the right iliac bone. IMPRESSION: Acute subcapital right hip fracture. ACT 112: Negative or not required by law. Electronically signed by: Blue Cherry M.D. 01/25/2020 8:48 AM
[2020-01-25] MEDS: INSULIN ASPART 100 UNITS/ML 3 ML PEN SC SCH ×4 (09:19→22:32)
--- NOTE | 2020-01-25 09:29 | Orthopedic Consultation ---
Date of Consultation January 25, 2020 Assessment & Plan (1) Closed fracture of right hip: The patient is a resident of [facility]. She is demented at baseline. She was ambulatory prior to this injury. X-rays demonstrate displaced right femoral neck fracture. I discussed the nature of the fracture with the patient's son who is her primary power of defense attorney. Given the fact that she is able to ambulate prior to her injury my recommendation for this would be for right hip bipolar hemiarthroplasty. Risks, benefits, alternatives including but not limited to pain, stiffness, infection, DVT, PE, , fracture, need for revision surgery, damage to blood vessels, damage to nerves, risks of anesthesia were discussed with the patient's son and he wishes to proceed. We will plan for this later this morning. Present on Admission?: Yes History of Present Illness Reason for Consultation: Right femoral neck fracture Attending Physician: Nia Ramirez, DO History of Present Illness The patient is an 85-year-old female who is a resident at [facility]. She is demented at baseline. She ambulated independently prior to this injury. She has been confused and history as far as exactly what happened with her fall is unclear but she reports having a mechanical fall may be tripped over her feet landing onto the right hip. She had immediate pain and inability to bear weight. She is subsequently transferred emergency room x-rays were obtained. This demonstrated a displaced right femoral neck fracture. Allergies Allergy/AdvReac Type Severity Reaction Status Date / Time aspirin Allergy Severe HIVES/ANAPH Verified 01/24/20 23:49 YLAXIS NSAIDS (Non-Steroidal Allergy Severe HIVES Verified 01/24/20 23:49 Anti-Inflamma Sulfa (Sulfonamide Allergy Intermediate HIVES Verified 01/24/20 23:49 Antibiotics) yellow dye Allergy Mild YELLOW DYE Verified 01/24/20 23:49 #5--HIVES celecoxib [From Celebrex] Allergy Unknown Verified 01/24/20 23:49 metformin Allergy Unknown Verified 01/24/20 23:49 Home Medications Home Medications Medication Instructions Recorded Confirmed Type atorvastatin 80 mg PO QPM 09/17/19 01/24/20 History melatonin 3 mg PO HS 09/17/19 01/24/20 History Senna Plus 1 tab-cap PO DAILY PRN 11/13/19 01/24/20 History pantoprazole [Protonix] 40 mg PO DAILY 11/13/19 01/24/20 History polyethylene glycol 3350 [Miralax] 17 g PO DAILY PRN 11/13/19 01/24/20 History quetiapine [Seroquel] 25 mg PO TID 11/13/19 01/24/20 History mirtazapine 15 mg PO HS 12/17/19 01/24/20 History acetaminophen 650 mg PO Q4 PRN MDD 3gm 01/14/20 01/24/20 History potassium chloride 20 meq PO BID 01/14/20 01/24/20 History Patient History Medical History (Updated 01/25/20 @ 04:15 by Jovany Cortez MD) Acute cholecystitis Bilateral elbow fractures (Acute) Dementia (Acute) Diabetes mellitus Fracture, clavicle (Acute) History of pacemaker Social History Preferred Language: Citizen Of [place] Communication Ability: Impaired Razor Grinder Required: No Beliefs That Will Affect Care: None Current Living Situation: Personal Care Facility and Other Current Living Situation Comment: unable to answer questions Feels Safe at Home: Yes Smoking Status: Never smoker Physical Exam Constitutional: WD/WN, vitals as above Neck: normal visual inspection Respiratory: normal respiratory effort Cardiovascular: Extremities: normal capillary refill; no edema Musculoskeletal: Right lower extremity: Light touch sensation is intact distally. She is able to dorsiflex and plantarflex the foot and toes without deficit. Palpable dorsalis pedis pulse. The limb is shortened and externally rotated. She has pain that she locates to the groin with rotation of the leg Results & Data ([facility]) Vital Signs (Past 12 Hours) Vital Signs Temp Pulse Pulse Resp BP BP Pulse Ox 01/25/20 06:58 36.6 C 60 16 160/69 H 100 01/25/20 02:25 37.1 C 61 18 182/72 H 97 01/25/20 02:01 70 22 140/76 95 01/25/20 01:12 62 22 164/71 H 100 01/25/20 00:44 63 16 178/75 H 95 01/24/20 23:12 36.9 C 62 18 176/68 H 99 Diagnostic Findings X-ray of the right hip demonstrates [place] 4 right displaced femoral neck fracture (1) Closed fracture of right hip Encounter type: initial encounter Qualified Code(s): S72.001A - Fracture of unspecified part of neck of right femur, initial encounter for closed fracture
--- NOTE | 2020-01-25 10:50 | History & Physical Bridge Note ---
Date of Service January 25, 2020 History & Physical Bridge Note I have examined the patient, reviewed the History & Physical and in the interval since the performance of the History & Physical I have noted the following changes of clinical significance: no changes noted
--- NOTE | 2020-01-25 11:14 | Anesthesiology Consultation ---
Date of Service January 25, 2020 Assessment & Plan Chart Review Chart Review: Acceptable Risk for Surgery and Patient NOT seen in Pre Admission Testing Consults Requested none ASA ASA4 Proposed Anesthesia Anesthesia Type: Spinal Risk / Benefits Reviewed With: PT / POA / Parent / Guardian, Accepts Plan and Informed Consent Obtained Additional Comments: covid test pending History Surgery Operation Date: 01/25/20 07:30 Proposed Procedures p Bipolar Hip Prosthesis - Aiden Fried MD Height/Weight Height: 5 ft 3 in Weight: 75.7 kg Allergies Allergy/AdvReac Type Severity Reaction Status Date / Time aspirin Allergy Severe HIVES/ANAPH Verified 01/24/20 23:49 YLAXIS NSAIDS (Non-Steroidal Allergy Severe HIVES Verified 01/24/20 23:49 Anti-Inflamma Sulfa (Sulfonamide Allergy Intermediate HIVES Verified 01/24/20 23:49 Antibiotics) yellow dye Allergy Mild YELLOW DYE Verified 01/24/20 23:49 #5--HIVES celecoxib [From Celebrex] Allergy Unknown Verified 01/24/20 23:49 metformin Allergy Unknown Verified 01/24/20 23:49 Medications Home Medications Medication Instructions Recorded Confirmed Last Taken atorvastatin 80 mg PO QPM 09/17/19 01/24/20 12/16/19 20:00 melatonin 3 mg PO HS 09/17/19 01/24/20 12/16/19 20:00 Senna Plus 1 tab-cap PO DAILY PRN 11/13/19 01/24/20 Unknown pantoprazole [Protonix] 40 mg PO DAILY 11/13/19 01/24/20 12/17/19 07:00 polyethylene glycol 3350 [Miralax] 17 g PO DAILY PRN 11/13/19 01/24/20 Unknown quetiapine [Seroquel] 25 mg PO TID 11/13/19 01/24/20 12/16/19 20:00 mirtazapine 15 mg PO HS 12/17/19 01/24/20 12/16/19 20:00 acetaminophen 650 mg PO Q4 PRN MDD 3gm 01/14/20 01/24/20 Unknown potassium chloride 20 meq PO BID 01/14/20 01/24/20 Unknown Active Medications Generic Name Dose Route Start Last Admin Trade Name Freq PRN Reason Stop Dose Admin Lactated Ringer's 1,000 mls @ 80 mls/hr 01/25/20 02:24 01/25/20 03:03 Lr IV 01/26/20 03:23 80 mls/hr .[id number] FIORELLA Administration Insulin Aspart 0 units 01/25/20 07:30 01/25/20 09:19 Novolog Flexpen SC 02/24/20 07:29 Not Given ACHS FIORELLA Oxycodone HCl 5 mg 01/25/20 02:24 01/25/20 06:24 Roxicodone Immediate Rel PO 02/08/20 02:23 5 mg Q4H PRN Administration MODERATE Pain (Scale 4,5,6) Pantoprazole Sodium 40 mg 01/25/20 06:30 01/25/20 06:24 Protonix PO 02/24/20 06:29 40 mg DAILYBB FIORELLA Administration Potassium Chloride 20 meq 01/25/20 09:00 01/25/20 08:16 Klor-Con M20 PO 02/24/20 08:59 Not Given BID FIORELLA Quetiapine Fumarate 25 mg 01/25/20 09:00 01/25/20 07:59 Seroquel PO 02/24/20 08:59 Not Given TID FIORELLA NPO Date Last Intake of Fluids: 01/25/20 Time Last Intake of Fluids: 02:25 Date Last Intake of Solids: 01/25/20 Time Last Intake of Solids: 02:25 Past Medical History Medical History Acute cholecystitis Bilateral elbow fractures (Acute) Dementia (Acute) Diabetes mellitus Fracture, clavicle (Acute) History of pacemaker Exercise / Class Metabolic Activity III < 4 Walking/Shop/Light housework Past Family History Family History Other No significant family history Past Anesthesia History No Hx of Anesthesia Complications and No Family Hx of Anesthesia Complications History of PONV No Hx of PONV and No Hx of Motion Sickness Social History Smoking Status: Never smoker Alcohol Intake Frequency Comment: unable to answer questions substance use type: does not use Substance Use Type Other:: unable to answer questions Last Used Substance Other:: unable to answer questions Physical Exam Vital Signs Last Vital Signs Temp 36.6 C 01/25/20 06:58 Pulse 60 01/25/20 06:58 Resp 16 01/25/20 06:58 BP 160/69 H 01/25/20 06:58 Pulse Ox 100 01/25/20 06:58 Constitutional not obese ENMT Mouth: + poor dentition; no dentition abnormality Thyromental Distance: < 3.5 Finger Breadths Mallampati Class: II Neck normal visual inspection and trachea midline; neck extension not limited Respiratory normal respiratory effort Auscultation: lungs clear to auscultation bilaterally Cardiovascular Rate/Rhythm: regular rate and regular rhythm Heart Sounds: no murmur Vessels: no carotid bruit Musculoskeletal Spine: normal cervical ROM Extremities: + limited ROM of extremities (right leg); + extremities abnormal to inspection Neurologic + does not move all extremities (right leg) Motor/Sensory: no sensory deficit Psychiatric Orientation: alert; + not oriented x 3 (dementia) Testing Laboratory Results 01/24/20 23:26 01/24/20 23:26 PT 10.8 Seconds (9.0-12.0) 01/24/20 23:26 INR 1.0 (0.9-1.1) 01/24/20 23:26 APTT 27.1 Seconds (21.0-31.0) 01/24/20 23:26 Urine Color Yellow 01/25/20 00:36 Urine Appearance Clear (Clear) 01/25/20 00:36 Urine pH 7.0 (4.5-7.5) 01/25/20 00:36 Ur Specific [place] 1.016 (1.000-1.030) 01/25/20 00:36 Urine Protein Negative (Negative) 01/25/20 00:36 Urine Glucose (UA) Negative (Negative) 01/25/20 00:36 Urine Ketones 1+ (Negative) H 01/25/20 00:36 Urine Nitrite Negative (Negative) 01/25/20 00:36 Ur Leukocyte Esterase Negative (Negative) 01/25/20 00:36 Blood Type O Positive 01/25/20 05:27 Antibody Screen NEGATIVE 01/25/20 05:27 01/25/20 08:10 POC Glucose 131 H Electrocardiogram Date: 01/24/20 Findings: + LVH and + pertinent finding (apaced rhythm at 60;septal and inferior infarcts ,ages ?) Chest X-Ray Date: 01/24/20 Findings: + NAD Echocardiogram Date: 12/10/14 EF: 40% LV Function: dysfunctional RWMA: + hypokinetic; no none Other Findings: + LVH Valvular Disease: + MR
[2020-01-25] MEDS ORDERED: KETAMINE HCL INJ 50 MG/ML 10 ML VIAL ONE (11:29)
[2020-01-25] MEDS ORDERED: BACITRACIN INJ 50,000 UNIT VIAL ONE (11:36)
[2020-01-25] MEDS ORDERED: PROPOFOL IV EMULSION 10 MG/ML 20 ML VIAL IV ONE (12:04)
[2020-01-25] MEDS ORDERED: CEFAZOLIN 250 MG/ML 1 GM VIAL ONE (12:04)
[2020-01-25] MEDS ORDERED: SODIUM CHLORIDE 0.9% INJ 10 ML VIAL ONE (12:05)
[2020-01-25] MEDS ORDERED: ROPIVACAINE 0.5% HCL/PF 150 MG, BUPIVACAINE 0.5% MPF 30 ML, EPINEPHrine 30MG/30ML (OR U... INFIL SCH (12:15)
[2020-01-25] MEDS ORDERED: CEFAZOLIN 2000MG 2,000 MG/15 ML SYR IV ONE (12:33)
--- NOTE | 2020-01-25 14:15 | Operative Report ---
Post Operative Report Pre & Post Diagnosis Operation Date: 01/25/20 07:30 Pre-Op Diagnosis: RIGHT HIP FRACTURE Post-Op Diagnosis: RIGHT HIP FRACTURE I identified the patient and participated in the time-out.: Yes Procedure Operation Date: 01/25/20 07:30 Actual Procedures p Right Hip Bipolar Hemiarthroplasty(Right) - Aiden Fried MD Surgeon Aiden Fried MD Backer Up Daren Elizabeth PA-C Estimated Blood Loss 100 Findings Consistent with Post-Op Diagnosis Specimens Femoral head Drains None Anesthesia Type Spinal MAC Complications none Disposition Accompanied Patient To Recovery: No Disposition: Recovery Room Indications The patient is a 85-year-old female who sustained a fall onto the right hip. She sustained a Garden 4 displaced right femoral neck fracture. I discussed the nature of the injury with the patient and her son and he wishes us to proceed with a right bipolar hemiarthroplasty Description of Procedure Risks benefits and alternatives of surgery including but not limited to infection, DVT, pain, stiffness, need for surgery, damage to blood vessels, damage to nerves or risks of anesthesia were discussed with the patient and they wished to proceed. The patient was identified and the laterality was confirmed and marked. They received a preoperative antibiotic as well as a spinal anesthetic. The patient was transferred the lateral decubitus position. An axillary roll was placed. All pressure points were well-padded. The hip was prepped and draped in the usual standard manner with ChloraPrep. I made a standard lateral incision over the greater trochanter. I sharply incised the skin then utilized Bovie electrocautery to achieve hemostasis. I incised the iliotibial band fascia. I then identified the gluteus medius tendon and elevated the anterior one third. This was tagged with an Ethibond suture for later repair. I then dissected down over the anterior face of the femoral neck and identified the capsule. I incised through the capsule and tagged both sides of the capsule with Ethibond suture for later repair. I then marked the femoral neck to establish version ammeter revision femoral neck cut proximal to the femoral neck fracture. The femoral head was then removed with a combination of hip skid and pointed tenaculum. The [place] femoral head was sized on the back table. I then began femoral preparation with a box punch. Then entered with a femoral canal finder. I then sequentially broached up to the appropriate size. Once I was satisfied with the sizing broach I trialed off of the broach. I determined appropriate neck length for protestant of limb lengths and stability of the hip. All the trial components were then removed. The wound was thoroughly irrigated. I then applied to my definitive components. Definitive components were Lilia Accolade II: Stem size: 4 Neck offset: +4 Bipolar component outer diameter: 43 The hip was then reduced. Again confirmed that we had good protestant of leg lengths and good stability to the hip. The wound was again thoroughly irrigated. The capsule was closed with interrupted #2 FiberWire suture. The gluteus medius was closed with a combination of [id number] soft tissue stitches as well as through drill tunnels. The remaining fascia was then closed with interrupted #1 Vicryl suture. Subcutaneous tissues closed with interrupted 2-0 Vicryl suture. The skin was closed with trista. A sterile dressing was applied. All needle and sponge counts were correct at the end of the procedure patient was transferred to the PACU in stable condition without apparent complication. The PA-C was necessary for assistance with procedure for assistance in positioning, prepping, draping, retraction and closure. I attest to the content of the Intraoperative Record and any orders documented therein. Any exceptions are noted below.
[2020-01-25] MEDS ORDERED: ePHEDrine sulfate 50 MG/ML AMP IV PRN (14:41)
[2020-01-25] MEDS ORDERED: ATROPINE SULFATE 0.1 MG/ML 10ML SYR IV PRN (14:41)
[2020-01-25] MEDS ORDERED: PROMETHAZINE HCL 12.5 MG in SODIUM CHLORIDE 0.9% 50 ML IV PRN (14:41)
[2020-01-25] MEDS ORDERED: fentaNYL citrate 100 MCG/2 ML VIAL IV PRN (14:41)
[2020-01-25] MEDS ORDERED: FLUMAZENIL 0.1 MG/1 ML 10 ML VIAL IV PRN (14:41)
[2020-01-25] MEDS ORDERED: ONDANSETRON INJ 2 MG/ML 2 ML VIAL IV PRN ×2 (14:41→15:48)
--- NOTE | 2020-01-25 15:25 | XRay Report ---
SINGLE VIEW PELVIS; SINGLE VIEW RIGHT HIP CLINICAL HISTORY: Postoperative examination. FINDINGS: An AP portable view of the hips and pelvis with a crosstable lateral portable view of the r ight hip are compared to study dated 01/24/2020. A unipolar right hip arthroplasty is in near-anatomic alignment. No acute fracture is identified. There are expected postoperative changes overlying the right hip including skin clips, subcutaneous gas, and soft tissue swelling. Moderate degenerative ellen nt space narrowing is seen in the left hip. Atherosclerotic calcification is noted in the femoral art eries. IMPRESSION: Expected postoperative findings status post right hip arthroplasty. No acute fracture is seen. ACT 112: Negative or not required by law. Electronically signed by: Mark Barroso M.D. 01/25/2020 3:24 PM
--- NOTE | 2020-01-25 15:38 | Anesthesiology Progress Note ---
Date of Service January 25, 2020 Anesthesia Post Procedure Vital Signs Vital Signs: Temp Pulse Pulse Resp BP BP Pulse Ox 01/25/20 15:30 60 16 120/58 L 95 01/25/20 15:15 36.6 C 60 14 122/62 99 01/25/20 15:05 60 13 118/55 L 100 01/25/20 14:56 36.6 C 60 16 113/51 L 99 01/25/20 06:58 36.6 C 60 16 160/69 H 100 01/25/20 02:25 37.1 C 61 18 182/72 H 97 01/25/20 02:01 70 22 140/76 95 01/25/20 01:12 62 22 164/71 H 100 01/25/20 00:44 63 16 178/75 H 95 01/24/20 23:12 36.9 C 62 18 176/68 H 99 Pain Intensity Right Hip: Pain Intensity: 6 Transfer of Care Handoff Completed per policy Notes Mental Status: alert / awake / arousable and participated in evaluation Patient Amnestic to Procedure: Yes Nausea / Vomiting: adequately controlled Pain: adequately controlled Airway Patency, RR, SpO2: stable & adequate BP & HR: stable & adequate Hydration State: stable & adequate Neuraxial Anesthesia: was administered and sensory block is resolving Anesthetic Complications: no major complications apparent
[2020-01-25] MEDS ORDERED: OXYCODONE HCL IR 5 MG TAB (IMMEDIATE RELEASE) PO PRN (15:48)
[2020-01-25] MEDS ORDERED: SODIUM CHLORIDE 0.9% 1000ML 1,000 ML IV SCH (16:00)
--- NOTE | 2020-01-25 16:58 | Hospitalist Progress Note ---
Date of Service January 25, 2020 Assessment & Plan (1) Closed right hip fracture: Patient with presumed mechanical fall at her [place] [facility] resulting in fracture of right femoral neck -Pain control with Tylenol, Oxycodone, Morphine PRN -Bowel regimen PRN -Orthopedic Surgery consultation appreciated - taken to the OR for hemiarthroplasty 01/24 (2) Fall: As above, presumed mechanical fall. Patient with history of the same on multiple occasions with frequent visits to the ED and hospital. CT head in ED was wnl -Management of right hip fracture as above -PT/OT evaluation to be ordered post operatively -Anticipate return to [place] [facility], possible rehab. -Fall precautions (3) Dementia: At baseline oriented to self only. Frequently agitated when inpatient. -Delirium prevention strategies with frequent orientation, maintenance of sleep/wake cycle, ambulation when able -Continue Seroquel 25mg po TID - patient on this medication at home. At this point, more benefit than risk despite black box warning -Continue Remeron -Continue Melatonin (4) Diabetes mellitus: [id number] in September 2019. Blood sugar presently 121. Patient not on any diabetes medications. -ISS -Goal blood sugar 100 - 140 - CC diet (5) GERD (gastroesophageal reflux disease): Chronic. Stable -Continue Protonix (6) Depression: Chronic. Stable -Continue Remeron (7) Hyperlipidemia: Chronic. Stable -Continue Atorvastatin (8) Coronary artery disease: Chronic. Continue statin. Plavix to be readdressed by PCP. Patient continues to be a fall risk at this time -Continue Atorvastatin (9) Hypokalemia: Patient refused her po supplementation this morning, will add 20 mEq to her IVF and continue NSS 20K @ 100mls x 2L Continue home potassium supplementation (10) Hypomagnesemia: Mag 400 mg po bid (11) Hypophosphatemia: Phos 1.8 - will give Kphos QID to replace (12) Elevated alkaline phosphatase level: Appears to have been elevated since October Other LFTs wnl (13) DVT prophylaxis: Enoxaparin - patient does have history of small subdural a month ago but there is no evidence of it persisting on her CT head so will proceed with dvt proph POC - Man Dorado - Son - [phone] Alejandrina Jain - Daughter - [phone] Updated daughter over the phone, son did not answer. Admission and Anticipated Discharge Date Admission Date: January 25, 2020 Supervising Physician Co-Signing Physician Notes case d/w S Silvano BOB. agree w above. Subjective Ms. Dorado is post op this morning. She is quite confused but denies any discomforts other than being cold. ROS Constitutional: no chills, aches, sweats or fever Respiratory: no sob,cough, sputum, or wheezing Cardiac: no chest pain, palpitations, edema, orthopnea or lightheadedness GI: no abdominal pain, nausea, vomiting, diarrhea or constipation : no dysuria or hesitancy Extremities: no joint pain or weakness Skin: no rash All other systems reviewed and negative Physical Exam Physical Exam: General: no distress Eyes: normal inspection, PERLL Respiratory: chest non tender, clear to auscultation, normal breath sounds, no respiratory distress, no accessory muscle use Cardiac: regular rate and rhythm, no rub or gallop, no murmur, no edema, no jvd GI/: active bowel sounds, no abd pain or tenderness, soft, non distended Extremities: normal range of motion, normal strength, non tender Neuro/Psych: alert and disoriented even to name, normal mood and affect, unwilling to follow commands Skin: normal color, dry Results & Data Results & Data ([facility]) Vital Signs (Past 12 Hours) Vital Signs Temp Pulse Pulse Resp BP BP Pulse Ox 01/25/20 16:47 36.3 C L 68 16 109/55 L 97 01/25/20 16:15 36.3 C L 60 13 142/62 H 97 01/25/20 15:50 36.8 C 60 12 154/65 H 94 01/25/20 15:30 60 16 120/58 L 95 01/25/20 15:15 36.6 C 60 14 122/62 99 01/25/20 15:05 60 13 118/55 L 100 01/25/20 14:56 36.6 C 60 16 113/51 L 99 01/25/20 06:58 36.6 C 60 16 160/69 H 100 PG Care Time/CCT Total # of Minutes Spent Total Time Spent with Patient: Total time spent is greater than 50% in coordination of care (as documented) at patient's floor/unit and/or counseling patient: Coding Level of Care Code 69054 Subseq Hosp Care Lvl 3 Diagnoses Closed right hip fracture S72.001A Encounter type: initial encounter Fall W19.XXXA Encounter type: initial encounter Dementia F03.91 Dementia behavioral disturbance: with behavioral disturbance Dementia type: unspecified type Diabetes mellitus E11.9 Diabetes mellitus complication status: without complication Diabetes mellitus intermediate designer insulin use: without shelter use Diabetes mellitus type: type 2 GERD (gastroesophageal reflux disease) K21.9 Esophagitis presence: esophagitis presence not specified Depression F32.9 Active/Remission status: remission status unspecified Depression Type: major depressive disorder Major depression recurrence: unspecified whether recurrent Hyperlipidemia E78.5 Hyperlipidemia type: unspecified Coronary artery disease I25.10 Associated angina: without angina Coronary Disease-Associated Artery/Lesion type: [place] artery [place] vs. transplanted heart: tanana heart Hypokalemia E87.6 Hypomagnesemia E83.42 Hypophosphatemia E83.39 Elevated alkaline phosphatase level R74.8 DVT prophylaxis Z29.9 (1) Diabetes mellitus Diabetes mellitus complication status: without complication Diabetes mellitus shelter insulin use: without shelter use Diabetes mellitus type: type 2 Qualified Code(s): E11.9 - Type 2 diabetes mellitus without complications (2) Coronary artery disease Associated angina: without angina Coronary Disease-Associated Artery/Lesion type: [place] artery [place] vs. transplanted heart: [place] heart Qualified Code(s): I25.10 - Atherosclerotic heart disease of [place] coronary artery without angina pectoris (3) Dementia Dementia behavioral disturbance: with behavioral disturbance Dementia type: unspecified type Qualified Code(s): F03.91 - Unspecified dementia with behavioral disturbance (4) Depression Active/Remission status: remission status unspecified Depression Type: major depressive disorder Major depression recurrence: unspecified whether recurrent Qualified Code(s): F32.9 - Major depressive disorder, single episode, unspecifi ed (5) Hyperlipidemia Hyperlipidemia type: unspecified Qualified Code(s): E78.5 - Hyperlipidemia, unspecified (6) GERD (gastroesophageal reflux disease) Esophagitis presence: esophagitis presence not specified Qualified Code(s): K21.9 - Gastro-esophageal reflux disease without esophagitis (7) Fall Encounter type: initial encounter Qualified Code(s): W19.XXXA - Unspecified fall, initial encounter (8) Closed right hip fracture Encounter type: initial encounter Qualified Code(s): S72.001A - Fracture of unspecified part of neck of right femur, initial encounter for closed fracture
[2020-01-25] MEDS: NSS + 20MEQ KCL 20 MEQ/1,000 ML BAG IV SCH (18:13)
[2020-01-25] MEDS: MIRTAZAPINE SOLTAB 15 MG PO SCH (22:07)
[2020-01-25] MEDS: MAGNESIUM OXIDE 400 MG TAB PO SCH (22:07)
[2020-01-25] MEDS: CEFAZOLIN 1000MG 1,000 MG/7.5 ML SYR IV SCH (22:07)
[2020-01-25] MEDS: ATORVASTATIN 40 MG TAB PO SCH (22:08)
[2020-01-25] MEDS: MELATONIN 3 MG TAB PO SCH (22:09)
[2020-01-25] MEDS: SENNA 8.6 MG TAB PO SCH (22:09)
[2020-01-25] MEDS: DOCUSATE SODIUM 100 MG CAP PO SCH (22:09)
[2020-01-25] MEDS: POT PHOSPHATE MONOBASIC W/ SOD TAB PO SCH (22:25)
[2020-01-26] MEDS: NSS + 20MEQ KCL 20 MEQ/1,000 ML BAG IV SCH (03:04)
[2020-01-26] MEDS: CEFAZOLIN 1000MG 1,000 MG/7.5 ML SYR IV SCH (05:01)
[2020-01-26] MEDS: PANTOprazole 40 MG TAB PO SCH ×2 (05:54→06:03)
[2020-01-26 06:27] LABS: Basophils # (auto) 0.02 K/uL (0-0.2); Basophils % (auto) 0.2 %; Eosinophils # (auto) 0.05 K/uL (0-0.5); Eosinophils % (auto) 0.6 %; Hematocrit (blood only) 33.2 % (37-47); Hemoglobin 11.3 g/dL (12.0-16.0); Immature Granulocytes # (auto) 0.02 K/uL (0.00-0.02); Immature Granulocytes % (auto) 0.2 %; Lymphocytes % (auto) 10.1 %; Mean Corpuscular Hemoglobin 31.6 pg (25-34); Mean Corpuscular Volume 92.7 fL (80-100); Mean Platelet Volume 10.5 fL (7.4-10.4); Monocytes % (auto) 10.1 %; Neutrophils # (auto) 7.05 K/uL (1.4-6.5); Neutrophils % (auto) 78.8 %; Platelet Count 191 K/uL (130-400); RDW Coefficient of Variation 13.9 % (11.5-14.5); RDW Standard Deviation 47.4 fL (36.4-46.3); Red Blood Count 3.58 M/uL (4.2-5.4); White Blood Count 8.94 K/uL (4.8-10.8)
[2020-01-26 07:00] LABS: Albumin Level 2.5 gm/dl (3.4-5.0); Bilirubin Direct 0.1 mg/dl (0-0.2); Calcium 7.9 mg/dl (8.5-10.1); Creatinine Clr Calc Pharmacy 52.3 ml/min; Est GFR (African American) 80.9; Est GFR (Non-African American) 69.8; Magnesium 1.7 mg/dl (1.8-2.4); Potassium 3.6 mmol/L (3.5-5.1)
[2020-01-26 07:05] LABS: Bilirubin,Total 0.6 mg/dl (0.2-1); Phosphorus 3.6 mg/dl (2.5-4.9); Total Protein 6.2 gm/dl (6.4-8.2)
--- NOTE | 2020-01-26 07:39 | Orthopedic Progress Note ---
Date of Service January 26, 2020 Assessment & Plan (1) Closed fracture of right hip: POD #1 right hip bipolar hemiarthroplasty -PT/OT-Patient may be weightbearing as tolerated. -DVT prophylaxis-SCDs, teds, Lovenox 40 mg subcu every 24h. -Pain management -A.m. labshemoglobin at 11.3 this morning -Discharge planning Admission and Anticipated Discharge Date Admission Date: January 25, 2020 Subjective Patient is asleep upon my arrival. She is arousable. She does not answer all of my questions, but does state that she does have some pain to her right hip. Denies any other complaints. Denies chest pain, shortness of breath, nausea, vomiting, dizziness. Review of Systems Review of Systems: Unobtainable due to cognitive status Physical Exam Physical Exam: Patient does not appear to be in much pain objectively, but does report pain to her right hip. Silverlon dressing to right hip is clean, dry,and intact. Mild drainage in the window. No calf tenderness, calves are soft. Toes are mobile. Distally neurovascular status and sensation are intact. Constitutional: well developed and well nourished; no acute distress Results & Data ([facility]) Vital Signs (Past 12 Hours) Vital Signs Temp Pulse Resp BP Pulse Ox 01/26/20 06:51 37.1 C 61 16 154/71 H 97 01/26/20 04:04 36.6 C 68 18 112/69 98 01/25/20 22:53 37.7 C H 84 18 112/59 L 95 Laboratory Results H & H 01/24/20 01/26/20 Range/Units 23:26 06:02 Hgb 12.7 11.3 L (12.0-16.0) g/dL Hct 39.0 33.2 L (37-47) % Coagulation 01/24/20 Range/Units 23:26 INR 1.0 (0.9-1.1) (1) Closed fracture of right hip Encounter type: initial encounter Qualified Code(s): S72.001A - Fracture of unspecified part of neck of right femur, initial encounter for closed fracture
[2020-01-26] MEDS: MULTIVITAMIN TAB PO SCH (08:49)
[2020-01-26] MEDS: POTASSIUM CHLORIDE 20 MEQ TABCR PO SCH ×2 (08:49→21:00)
[2020-01-26] MEDS: DOCUSATE SODIUM 100 MG CAP PO SCH ×3 (08:49→21:00)
[2020-01-26] MEDS: QUETIAPINE FUMARATE 25 MG TABLET PO SCH ×4 (08:50→21:01)
[2020-01-26] MEDS: POT PHOSPHATE MONOBASIC W/ SOD TAB PO SCH ×4 (08:50→21:00)
[2020-01-26] MEDS: MAGNESIUM OXIDE 400 MG TAB PO SCH ×2 (08:50→21:00)
[2020-01-26] MEDS: ENOXAPARIN INJ 40 MG/0.4 ML SYR SQ SCH (08:50)
[2020-01-26] MEDS: INSULIN ASPART 100 UNITS/ML 3 ML PEN SC SCH ×4 (10:12→21:26)
--- NOTE | 2020-01-26 11:03 | Hospitalist Progress Note ---
Date of Service January 26, 2020 Assessment & Plan (1) Closed right hip fracture: Patient with presumed mechanical fall at her residential resulting in fracture of right femoral neck -Pain control with Tylenol, Oxycodone, Morphine PRN -Bowel regimen PRN -Orthopedic Surgery consultation appreciated - taken to the OR for hemiarthroplasty 01/24 (2) Fall: As above, presumed mechanical fall. Patient with history of the same on multiple occasions with frequent visits to the ED and hospital. CT head in ED was wnl -Management of right hip fracture as above -PT/OT evaluation to be ordered post operatively -Anticipate return to residential, possible rehab. -Fall precautions (3) Dementia: At baseline oriented to self only. Frequently agitated when inpatient per past notes. -Delirium prevention strategies with frequent orientation, maintenance of sleep/wake cycle, ambulation when able -Continue Seroquel 25mg po TID - patient on this medication at home. At this point, more benefit than risk despite black box warning -Continue Remeron -Continue Melatonin (4) Diabetes mellitus: [id number]=3 in September 2019. Patient not on any diabetes medications. Blood sugars acceptable -ISS -Goal blood sugar 100 - 140 - CC diet (5) GERD (gastroesophageal reflux disease): Chronic. Stable -Continue Protonix (6) Depression: Chronic. Stable -Continue Remeron (7) Hyperlipidemia: Chronic. Stable -Continue Atorvastatin (8) Coronary artery disease: Chronic. Continue statin. Plavix to be readdressed by PCP, was discontinued after small subdural bleed a month ago. Patient continues to be a fall risk at this time -Continue Atorvastatin (9) Hypokalemia: Resolved Continue home potassium supplementation (10) Hypomagnesemia: Mag 400 mg po bid (11) Hypophosphatemia: Resolved - continue Kphos po QID to replace (12) Elevated alkaline phosphatase level: Resolved Other LFTs wnl (13) DVT prophylaxis: Enoxaparin - patient does have history of small subdural a month ago but there is no evidence of it persisting on her CT head so will proceed with dvt proph Admission and Anticipated Discharge Date Admission Date: January 25, 2020 Supervising Physician Co-Signing Physician Notes case d/w S Silvano BOB. agree w above. Subjective Ms. Dorado is sleeping when I assess her and does not open her eyes. She does however clamp her arms against her body when I attempt to move them and then flung them both in the air when I touched her again. Physical Exam Physical Exam: General: no distress Eyes: normal inspection, PERLL Respiratory: chest non tender, clear to auscultation, normal breath sounds, no respiratory distress, no accessory muscle use Cardiac: regular rate and rhythm, no rub or gallop, no murmur, no edema, no jvd GI/: active bowel sounds, no abd pain or tenderness, soft, non distended Extremities: normal range of motion, normal strength, non tender Neuro/Psych: alert and oriented x 3, normal mood and affect Skin: normal color, dry Results & Data Results & Data ([facility]) Vital Signs (Past 12 Hours) Vital Signs Temp Pulse Resp BP Pulse Ox 01/26/20 06:51 37.1 C 61 16 154/71 H 97 01/26/20 04:04 36.6 C 68 18 112/69 98 PG Care Time/CCT Total # of Minutes Spent Total Time Spent with Patient: Total time spent is greater than 50% in coordina tion of care (as documented) at patient's floor/unit and/or counseling patient: Coding Level of Care Code 08586 Subseq Hosp Care Lvl 2 Diagnoses Closed right hip fracture S72.001A Encounter type: initial encounter Fall [id number].XXXA Encounter type: initial encounter Dementia F03.91 Dementia behavioral disturbance: with behavioral disturbance Dementia type: unspecified type Diabetes mellitus E11.9 Diabetes mellitus complication status: without complication 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 vs. transplanted heart: [place] heart Hypokalemia E87.6 Hypomagnesemia E83.42 Hypophosphatemia E83.39 Elevated alkaline phosphatase level R74.8 DVT prophylaxis Z29.9 (1) Diabetes mellitus Diabetes mellitus complication status: without complication Diabetes mellitus retirement insulin use: without steam drier operator use Diabetes mellitus type: type 2 Qualified Code(s): E11.9 - Type 2 diabetes mellitus without complications (2) Coronary artery disease Associated angina: without angina Coronary Disease-Associated Artery/Lesion type: [place] artery [place] vs. transplanted heart: [place] heart Qualified Code (s): I25.10 - Atherosclerotic heart disease of [place] coronary artery without angina pectoris (3) Dementia Dementia behavioral disturbance: with behavioral disturbance Dementia type: unspecified type Qualified Code(s): F03.91 - Unspecified dementia with behavioral disturbance (4) Depression Active/Remission status: remission status unspecified Depression Type: major depressive disorder Major depression recurrence: unspecified whether recurrent Qualified Code(s): F32.9 - Major depressive disorder, single episode, unspecified (5) Hyperlipidemia Hyperlipidemia type: unspecified Qualified Code(s): E78.5 - Hyperlipidemia, unspecified (6) GERD (gastroesophageal reflux disease) Esophagitis presence: esophagitis presence not specified Qualified Code(s): K21.9 - Gastro-esophageal reflux disease without esophagitis (7) Fall Encounter type: initial encounter Qualified Code(s): W19.XXXA - Unspecified fall, initial encounter (8) Closed right hip fracture Encounter type: initial encounter Qualified Code(s): S72.001A - Fracture of unspecified part of neck of right femur, initial encounter for closed fracture
[2020-01-26] MEDS: OXYCODONE HCL IR 5 MG TAB (IMMEDIATE RELEASE) PO PRN (13:37)
[2020-01-26] MEDS: ATORVASTATIN 40 MG TAB PO SCH (21:00)
[2020-01-26] MEDS: MELATONIN 3 MG TAB PO SCH (21:00)
[2020-01-26] MEDS: SENNA 8.6 MG TAB PO SCH (21:01)
[2020-01-26] MEDS: MIRTAZAPINE SOLTAB 15 MG PO SCH (21:01)
[2020-01-27] MEDS: OXYCODONE HCL IR 5 MG TAB (IMMEDIATE RELEASE) PO PRN (01:54)
[2020-01-27 05:20] LABS: Hematocrit (blood only) 34.8 % (37-47); Hemoglobin 11.3 g/dL (12.0-16.0); Mean Corpuscular Hgb Conc 32.5 g/dL (32-36); Mean Corpuscular Volume 95.3 fL (80-100); Mean Platelet Volume 10.7 fL (7.4-10.4); Platelet Count 201 K/uL (130-400); RDW Coefficient of Variation 14.1 % (11.5-14.5); RDW Standard Deviation 48.9 fL (36.4-46.3); Red Blood Count 3.65 M/uL (4.2-5.4); White Blood Count 9.39 K/uL (4.8-10.8)
[2020-01-27 05:49] LABS: BUN Creatinine Ratio 15.2 (10-20); Calcium 8.2 mg/dl (8.5-10.1); Creatinine Clr Calc Pharmacy 61.8 ml/min; Est GFR (Non-African American) 81.1; Potassium 3.7 mmol/L (3.5-5.1)
[2020-01-27] MEDS: PANTOprazole 40 MG TAB PO SCH (06:01)
--- NOTE | 2020-01-27 09:02 | Hospitalist Progress Note ---
Date of Service January 27, 2020 Assessment & Plan (1) Closed right hip fracture: [facility] with [facility] resulting in fracture of right femoral neck -Pain control with Tylenol, Oxycodone, Morphine PRN -Bowel regimen PRN - taken to the OR for hemiarthroplasty 01/24 (2) Fall: As above, presumed mechanical fall. Patient with history of the same on multiple occasions with frequent visits to the ED and hospital. CT head in ED was wnl -Management of right hip fracture with surgical repair -PT/OT evaluation to be ordered post operatively -Anticipate return to prison, subacute rehab. -Fall precautions (3) Dementia: At baseline oriented to self only. Frequently agitated when inpatient per past notes. -Delirium prevention strategies with frequent orientation, maintenance of sleep/wake cycle, ambulation when able -Continue Seroquel 25mg po TID - patient on this medication at home. At this point, more benefit than risk despite black box warning -Continue Remeron -Continue Melatonin (4) Diabetes mellitus: [id number]=2 in September 2019. Patient not on any diabetes medications. Blood sugars acceptable -ISS -Goal blood sugar 100 - 140 - CC diet (5) GERD (gastroesophageal reflux disease): Chronic. Stable -Continue Protonix (6) Depression: Chronic. Stable -Continue Remeron (7) Hyperlipidemia: Chronic. Stable -Continue Atorvastatin (8) Coronary artery disease: Chronic. Continue statin. Plavix to be readdressed by PCP, was discontinued after small subdural bleed a month ago. Patient continues to be a fall risk at this time -Continue Atorvastatin (9) Hypokalemia: Resolved Continue home potassium supplementation (10) Hypomagnesemia: Mag 400 mg po bid (11) Hypophosphatemia: Resolved - continue Kphos po QID to replace (12) Elevated alkaline phosphatase level: Resolved Other LFTs wnl (13) DVT prophylaxis: Enoxaparin - patient does have history of small subdural a month ago but there is no evidence of it persisting on her CT head so will proceed with dvt proph Admission and Anticipated Discharge Date Admission Date: January 25, 2020 Subjective this pt is agitated and painful, she is participate in physical therapy. she is being evaluated for subacute rehab Review of Systems Review of Systems: Mild to moderate distress and fatigue no headache, blurry or double vision no speech or swallowing issues no chest pain, pressure or palpitations no shortness of breath, cough or wheezes no abdominal pain, nausea or vomiting, diarrhea or constipation no dysuria, hematuria or frequency Left hip discomfort dressing in place looks clean dry and intact no back pain, CVA tenderness or radicular pain no bruising, bleeding or rashes no focal signs of weakness or numbness or altered sensation seems to be demented Physical Exam Physical Exam: The patient appeared well nourished and normally developed. She appears her stated age Vital signs as documented. Head exam is normocephalic atraumatic no scleral icterus Neck is without JVD, thyromegaly, or carotid bruits. Lungs are clear to auscultation, no focal loss of breath sounds Cardiac exam, Rhythm is regular.. Systolic murmur is heard Abdominal exam reveals normal bowel sounds, soft non tender, no masses Extremities are nonedematous and both pedal pulses are normal. Neurologic exam is alert and oriented x2 extremely Skin is without bruises or rashes other than the operative site Psychologically is with concerned for dementia Results & Data Results & Data ([facility]) Vital Signs (Past 12 Hours) Vital Signs Temp Pulse Resp BP Pulse Ox 01/27/20 07:09 97.5 F L 75 18 148/70 H 93 01/27/20 00:45 75 14 93 PG Care Time/CCT Total # of Minutes Spent Total Time Spent with Patient: Total time spent is greater than 50% in coordination of care (as documented) at patient's floor/unit and/or counseling patient: Coding Level of Care Code 65699 Subseq Hosp Care Lvl 2 Diagnoses Closed right hip fracture S72.001A Encounter type: initial encounter Fall W19.XXXA Encounter type: initial encounter Dementia F03.91 Dementia behavioral disturbance: with behavioral disturbance Dementia type: unspecified type Diabetes mellitus E11.9 Diabetes mellitus complication status: without complication 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 transplanted heart: [place] heart Hypokalemia E87.6 Hypomagnesemia E83.42 Hypophosphatemia E83.39 Elevated alkaline phosphatase level R74.8 DVT prophylaxis Z29.9 (1) Diabetes mellitus Diabetes mellitus complication status: without complication Diabetes mellitus senior care insulin use: without senior care use Diabetes mellitus type: type 2 Qualified Code(s): E11.9 - Type 2 diabetes mellitus without complications (2) Coronary artery disease Associated angina: without angina Coronary Disease-Associated Artery/Lesion type: [place] artery [place] vs. transplanted heart: [place] heart Qualified Code(s): I25.10 - Atherosclerotic heart disease of [place] coronary artery without angina pectoris (3) Dementia Dementia behavioral disturbance: with behavioral disturbance Dementia type: unspecified type Qualified Code(s): F03.91 - Unspecified dementia with behavioral disturbance (4) Depression Active/Remission status: remission status unspecified Depression Type: major depressive disorder Major depression recurrence: unspecified whether recurrent Qualified Code(s): F32.9 - Major depressive disorder, single episode, unspecified (5) Hyperlipidemia Hyperlipidemia type: unspecified Qualified Code(s): E78.5 - Hyperlipidemia, unspecified (6) GERD (gastroesophageal reflux disease) Esophagitis presence: esophagitis presence not specified Qualified Code(s): K21.9 - Gastro-esophageal reflux disease without esophagitis (7) Fall Encounter type: initial encounter Qualified Code(s): W19.XXXA - Unspecified fall, initial encounter (8) Closed right hip fracture Encounter type: initial encounter Qualified Code(s): S72.001A - Fracture of unspecified part of neck of right femur, initial encounter for closed fracture
--- NOTE | 2020-01-27 09:05 | Orthopedic Progress Note ---
Date of Service January 27, 2020 Assessment & Plan (1) Closed fracture of right hip: POD #2 right hip bipolar hemiarthroplasty -PT/OT-Patient may be weightbearing as tolerated. -DVT prophylaxis-SCDs, teds, Lovenox 40 mg subcu every 24h. -Pain management -A.m. labshemoglobin at 11.3 this morning -Discharge planning Admission and Anticipated Discharge Date Admission Date: January 25, 2020 Subjective Post Operative Progress Note Patient seen sitting up in bed, comfortable, denies complaints, pain well controlled, no acute issues. Denies F/C/N/V/SOB/CP. Review of Systems Review of Systems: All systems reviewed & are unremarkable except as noted in HPI & below Constitutional: as per Subjective / HPI Physical Exam Physical Exam: RLE NVSI +EHL/FHL/TA/GS SILT grossly, +2 DP pulse, compartments soft NT, dressing cdi. Constitutional: WD/WN, vitals as above Results & Data ([facility]) Vital Signs (Past 12 Hours) Vital Signs Temp Pulse Resp BP Pulse Ox 01/27/20 07:09 36.4 C L 75 18 148/70 H 93 01/27/20 00:45 75 14 93 Laboratory Results 01/27/20 01/27/20 01/27/20 Range/Units 08:15 04:45 04:45 WBC 9.39 (4.8-10.8) K/uL RBC 3.65 L (4.2-5.4) M/uL Hgb 11.3 L (12.0-16.0) g/dL Hct 34.8 L (37-47) % MCV 95.3 (80-100) fL MCH 31.0 (25-34) pg MCHC 32.5 (32-36) g/dL RDW Std Deviation 48.9 H (36.4-46.3) fL RDW Coeff of Jasen 14.1 (11.5-14.5) % Plt Count 201 (130-400) K/uL MPV 10.7 H (7.4-10.4) fL Sodium 140 (136-145) mmol/L Potassium 3.7 (3.5-5.1) mmol/L Chloride 108 H (98-107) mmol/L Carbon Dioxide 25 (21-32) mmol/L Anion Gap 7.0 (3-11) BUN 10 (7-18) mg/dl Creatinine 0.66 (0.6-1.2) mg/dl Est Cr Clr Drug Dosing 61.8 ml/min Est GFR ( Amer) 94.0 Est GFR (Non-Af Amer) 81.1 BUN/Creatinine Ratio 15.2 (10-20) Glucose 118 H (70-99) mg/dl POC Glucose 102 H (70-99) mg/dl Calcium 8.2 L (8.5-10.1) mg/dl 01/26/20 01/26/20 01/26/20 Range/Units 20:41 17:01 12:07 WBC (4.8-10.8) K/uL RBC (4.2-5.4) M/uL Hgb (12.0-16.0) g/dL Hct (37-47) % MCV (80-100) fL MCH (25-34) pg MCHC (32-36) g/dL RDW Std Deviation (36.4-46.3) fL RDW Coeff of Jasen (11.5-14.5) % Plt Count (130-400) K/uL MPV (7.4-10.4) fL Sodium (136-145) mmol/L Potassium (3.5-5.1) mmol/L Chloride (98-107) mmol/L Carbon Dioxide (21-32) mmol/L Anion Gap (3-11) BUN (7-18) mg/dl Creatinine (0.6-1.2) mg/dl Est Cr Clr Drug Dosing ml/min Est GFR ( Amer) Est GFR (Non-Af Amer) BUN/Creatinine Ratio (10-20) Glucose (70-99) mg/dl POC Glucose 128 H 113 H 105 H (70-99) mg/dl Calcium (8.5-10.1) mg/dl (1) Closed fracture of right hip Encounter type: initial encounter Qualified Code(s): S72.001A - Fracture of unspecified part of neck of right femur, initial encounter for closed fracture
[2020-01-27] MEDS: ENOXAPARIN INJ 40 MG/0.4 ML SYR SQ SCH (10:14)
[2020-01-27] MEDS: QUETIAPINE FUMARATE 25 MG TABLET PO SCH ×4 (10:18→21:37)
[2020-01-27] MEDS: INSULIN ASPART 100 UNITS/ML 3 ML PEN SC SCH ×5 (10:18→21:37)
[2020-01-27] MEDS: DOCUSATE SODIUM 100 MG CAP PO SCH ×3 (10:18→21:36)
[2020-01-27] MEDS: MULTIVITAMIN TAB PO SCH (10:19)
[2020-01-27] MEDS: POT PHOSPHATE MONOBASIC W/ SOD TAB PO SCH ×6 (10:19→21:36)
[2020-01-27] MEDS: MAGNESIUM OXIDE 400 MG TAB PO SCH ×2 (10:19→21:36)
[2020-01-27] MEDS: POTASSIUM CHLORIDE 20 MEQ TABCR PO SCH ×3 (10:19→21:36)
[2020-01-27] MEDS: MIRTAZAPINE SOLTAB 15 MG PO SCH (21:36)
[2020-01-27] MEDS: MELATONIN 3 MG TAB PO SCH (21:36)
[2020-01-27] MEDS: ATORVASTATIN 40 MG TAB PO SCH (21:36)
[2020-01-27] MEDS: SENNA 8.6 MG TAB PO SCH (21:37)
[2020-01-28] MEDS: OXYCODONE HCL IR 5 MG TAB (IMMEDIATE RELEASE) PO PRN (01:57)
[2020-01-28] MEDS: QUETIAPINE FUMARATE 25 MG TABLET PO SCH ×2 (01:59→08:42)
[2020-01-28] MEDS: PANTOprazole 40 MG TAB PO SCH ×2 (06:14→06:20)
--- NOTE | 2020-01-28 07:46 | Orthopedic Progress Note ---
Date of Service January 28, 2020 Assessment & Plan (1) Closed fracture of right hip: POD #3 right hip bipolar hemiarthroplasty -PT/OT-Patient may be weightbearing as tolerated. -DVT prophylaxis-SCDs, teds, Lovenox 40 mg subcu every 24h. -Pain management -Discharge planning-planning for [facility] facility upon discharge. Orthopedics will sign off at this time. Please call with any questions. Instructions placed in the discharge section of the EHR. Admission and Anticipated Discharge Date Admission Date: January 25, 2020 Subjective Postop day 3 status post right bipolar hemiarthroplasty Patient is sleeping upon arrival but is easily awoken. States that her hip is a little bit sore this morning but otherwise feels well. No other complaints at this time. Physical Exam Physical Exam: Silver[place] dressing is clean, dry, and intact. She is a small amount of drainage noted in the dressing window. Thigh is soft and nontender. Calves are soft nontender. Neurovascular is intact. Toes are mobile. Hip appears located. Results & Data ([facility]) Vital Signs (Past 12 Hours) Vital Signs Temp Pulse Resp BP Pulse Ox 01/28/20 07:14 36.6 C 69 18 127/69 92 01/27/20 22:30 36.8 C 91 H 15 112/58 L 91 (1) Closed fracture of right hip Encounter type: initial encounter Qualified Code(s): S72.001A - Fracture of unspecified part of neck of right femur, initial encounter for closed fracture
[2020-01-28] MEDS: ENOXAPARIN INJ 40 MG/0.4 ML SYR SQ SCH (08:41)
[2020-01-28] MEDS: DOCUSATE SODIUM 100 MG CAP PO SCH (08:41)
[2020-01-28] MEDS: POTASSIUM CHLORIDE 20 MEQ TABCR PO SCH (08:41)
[2020-01-28] MEDS: MAGNESIUM OXIDE 400 MG TAB PO SCH (08:42)
[2020-01-28] MEDS: MULTIVITAMIN TAB PO SCH (08:42)
[2020-01-28] MEDS: POT PHOSPHATE MONOBASIC W/ SOD TAB PO SCH ×2 (08:42→12:24)
[2020-01-28] MEDS: INSULIN ASPART 100 UNITS/ML 3 ML PEN SC SCH ×2 (08:46→12:07)
--- NOTE | 2020-01-28 15:26 | Discharge Summary ---
Date of Service January 28, 2020 Admission HPI Per Admitting Provider Tess Dorado is an 85yo C female with history of dementia, DM, GERD and CAD presenting from [facility] after a mechanical fall. Patient is confused at baseline and unable to provide clear details of the events preceding the fall. She says she may have been in the kitchen or possibly the bathroom looking for apples. She thinks she tripped over her feet and fell onto her right hip. She does not think she hit her head or lost consciousness. She denies chest pain, palpitations or dizziness. Patient was unable to get up. She ws recently admitted in December for an unwitnessed fall resulting in a small SDH. She was on Plavix at the time. She was managed conservatively and ultimately returned to [facility] with instruction to hold her Plavix at least 30 days and to followup with her PCP. Per discussion with patient's daughter she reports that she is confused at baseline. She has poor memory and is typically only oriented to self. She requires some assistance with dressing and performing ADLs. She ambulates without any assist devices but often relies on the wall or furniture for stability. She has had multiple falls in the past but told me that she enjoys going for walks. On arrival to the ER she was found to be afebrile, HD stable. She was in considerable pain and was administered Fentanyl 25mcg IV with improvement, brief drop in O2 saturation requiring supplemental O2. She is complaining of some right hip discomfort presently, otherwise offers no complaints. She is asking about her parents and her siblings and says she feels bad that she hasn't seen them recently. ER Course: Fentanyl 25mcg IV x 2 Principal Diagnosis Right hip fracture status post hemiarthroplasty Discharge Exam The patient appeared well physically but mentally she is significantly demented Vital signs as documented. Lungs are clear to auscultation and appear unlabored Cardiac exam, Rhythm is regular.. No murmurs, rubs or gallops. Abdominal exam reveals normal bowel sounds, soft non tender, no masses Extremities are nonedematous and right hip wound looks clean dry and intact Neurologic exam is alert and oriented x1, no focal loss of strength or sensation although right leg movement is limited due to recent surgery Discharge Data Allergies Allergy/AdvReac Type Severity Reaction Status Date / Time aspirin Allergy Severe HIVES/ANAPH Verified 01/24/20 23:49 YLAXIS NSAIDS (Non-Steroidal Allergy Severe HIVES Verified 01/24/20 23:49 Anti-Inflamma Sulfa (Sulfonamide Allergy Intermediate HIVES Verified 01/24/20 23:49 Antibiotics) yellow dye Allergy Mild YELLOW DYE Verified 01/24/20 23:49 #5--HIVES celecoxib [From Celebrex] Allergy Unknown Verified 01/24/20 23:49 metformin Allergy Unknown Verified 01/24/20 23:49 Consultations 01/24/20 22:47 Consult Case Management - Discharge Planning Routine 01/25/20 00:32 ED Decision to Admit Stat 01/25/20 01:27 Consult Orthopedic Surgery Routine 01/25/20 02:24 Consult Case Management - Discharge Planning Routine Consult Orthopedic Surgery Routine 01/26/20 08:00 Consult Case Management - Discharge Planning Routine Procedures Performed Operation Date: 01/25/20 07:30 Actual Procedures p Right Hip Bipolar Hemiarthroplasty(Right) - Aiden Fried MD Ordered Studies 01/24/20 22:46 CT cervical spine wo con Urgent CT head/brain wo con Urgent Hospital Course (1) Closed right hip fracture: Patient with presumed mechanical fall at her [facility] resulting in fracture of right femoral neck -Pain control with Tylenol, avoiding opiates for confusion and constipation -Bowel regimen PRN - taken to the OR for hemiarthroplasty 01/24 (2) Fall: As above, presumed mechanical fall. Patient with history of the same on multiple occasions with frequent visits to the ED and hospital. CT head in ED was wnl -Management of right hip fracture with surgical repair -return to [facility], subacute rehab. -Fall precautions (3) Dementia: At baseline oriented to self only. Frequently agitated when inpatient per past notes. -Delirium prevention strategies with frequent orientation, maintenance of sleep/wake cycle, ambulation when able -Continue Seroquel 25mg po TID -Continue Remeron -Continue Melatonin (4) Diabetes mellitus: [id number] in September 2019. Patient not on any diabetes medications. Blood sugars acceptable -ISS -Goal blood sugar 100 - 140 -Carbohydrate conservative diet recommend watching blood sugars although not requiring any additional insulin here in our facility (5) GERD (gastroesophageal reflux disease): Chronic. Stable -Continue Protonix (6) Depression: Chronic. Stable -Continue Remeron (7) Hyperlipidemia: Chronic. Stable -Continue Atorvastatin (8) Coronary artery disease: Chronic. Continue statin. Plavix to be readdressed by PCP, was discontinued after small subdural bleed a month ago. Patient continues to be a fall risk at this time -Continue Atorvastatin (9) Hypokalemia: Resolved Continue home potassium supplementation (10) Hypomagnesemia: Mag 400 mg po bid (11) Hypophosphatemia: Resolved - (12) Elevated alkaline phosphatase level: Resolved Other LFTs wnl (13) DVT prophylaxis: Enoxaparin - patient does have history of small subdural a month ago but t here is no evidence of it persisting on her CT head so will proceed with dvt proph for least a month after hip fracture surgery Total Time Total Time Spent Total Time Spent (In Minutes): It required greater than 30 minutes to prepare this patient for discharge Discharge Plan Discharge Items Patient Disposition: Transfer [facility] Fac Reason For Visit: RIGHT HIP FRACTURE Discharge Diagnosis: 1 right hip fracture with surgical repair 2 dementia Activity: Per Instructions section Activity Comment: Per insturction from orthopedics for post op hip rehab Non-emergency contact: Primary Care Provider and Surgeon Call non-emergency contact if: you have any medication questions and your symptoms worsen Follow-up/Referrals: Zach, [Primary Care Provider] - Diet: Carb Consistent or DM2 Addtl Attending Provider Instructions: Please follow up with orthopedics although listed as diabetic has not required any insulin treatment, suggest blood glucose monitoring please use tylenol for pain as opiates create increased confusion and constipation 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 A. Observe the following precautions to prevent dislocation: 1. Don't bend your hip greater than 90 degrees. 2. Avoid crossing your legs or ankles while standing or lying. 3. Sit with your feet placed 6 inches apart. 4. When sitting, keep your knees below your hips. Sit on a firm surface, avoid deep, soft chairs and couches. Use an elevated toilet seat in the bathroom. 5. Don't bend over at the waist. Use a long handled shoehorn and a sock aid to help you put on your shoes and socks. A child & adolescent psychiatrist can help you shredder picker objects that are too high or too low to reach. 6. Keep car riding to a minimum for at least one month after surgery. B. Your balance may be shaky for a while. Use crutches or a walker until directed by your doctor. C. Use hand rails when walking on stairs. D. Wear low heeled shoes with non-slip soles. E. Be sure that your floors are free of things that could trip you - throw rugs, electrical cords, small objects. Avoid wet and waxed floors, especially with crutches and canes. F. Try to walk several times a day with rest periods between. G. Continue with all the exercises taught to you in the hospital. Again, make walking a part of your daily routine. SPECIAL CARE INSTRUCTIONS: VERY IMPORTANT TO READ AND REVIEW A. You may still be at risk for phlebitis and blood clots. 1. Wear surgical stockings (ONEL hose) for 2 weeks after surgery to improve circulation and reduce swelling. 2. CONTINUE LOVENOX DAILY. THIS IS YOUR BLOOD THINNER THAT YOU WILL BE TAKING FOR UP TO 4 WEEKS. B. You must take antibiotics before having dental work, bladder, bowel and other surgery. Your doctor will provide you with a permanent card to carry describing precautions. C. Call [facility] if you have a fever, redness or swelling around the incision, cloudy drainage from incision, or sudden increase in pain in your hip, not relieved by your regular pain medication. D. Please call the office at if you have any concerns or questions about your operation or recovery. * YOU MAY SHOWER, NO TUB BATHS UNTIL CLEARED BY YOUR DOCTOR. * WEAR ONEL HOSE 20 HOURS PER DAY FOR 2 WEEKS. * YOU SHOULD USE A WALKER OR CRUTCHES FOR 2-4 WEEKS. THIS WILL HELP PREVENT STRAIN ON YOUR HIP MUSCLE AND ALLOW IT TO HEAL PROPERLY. YOU MAY WEAN TO A CANE TOLERATED. * SOME PATIENTS WILL HAVE HOME NURSING FOR THERAPY. IF YOU DECIDE TO DO OUTPATIENT PHYSICAL THERAPY, PLEASE SCHEDULE THIS 3 TIMES PER WEEK. * Silverlon- This is a large adhesive bandage that contains silver ions. This helps your incision heal by fighting off bacteria and protecting it from the outside environment. You are permitted to shower with this dressing. This will remain on your incision for 7 days and then should be removed. Some visible blood or drainage through the dressing window is normal. If there is significant drainage or leaking noted before the 7 days notify your doctor's office immediately. Once removed, keep incision clean and dry. If there is any drainage or redness noted, please call your surgeon. . FOLLOW UP VISIT: If appointment is not already scheduled: Please call [facility] to make a follow-up appointment for [address] Fried after your surgery at . Pending Studies at Discharge: No Stand-Alone Forms: My [facility] Skilled Items Patient informed of condition?: Yes DNR: Yes Discharge Level of Care: Skilled Communicable Disease: No Discharge Prognosis: Stable Lines: None Urinary Catheter: No Medications and DC Order Prescriptions: New enoxaparin 40 mg/0.4 mL Syringe 40 mg subcut Q24H Qty: 12 RF: 0 Continued quetiapine [Seroquel] 25 mg tablet 25 mg PO TID RF: 0 polyethylene glycol 3350 [Miralax] 17 gram Powder In Packet 17 g PO DAILY PRN (Reason: Constipation) RF: 0 pantoprazole [Protonix] 40 mg tablet,delayed release (DR/EC) 40 mg PO DAILY RF: 0 Senna Plus 8.6-50 mg Capsule 1 tab-cap PO DAILY PRN (Reason: Constipation) RF: 0 potassium chloride 20 mEq Tablet Extended Release 20 meq PO BID RF: 0 acetaminophen 325 mg Tablet 650 mg PO Q4 MDD 3gm PRN (Reason: Fever Or Pain) RF: 0 atorvastatin 80 mg tablet 80 mg PO QPM RF: 0 melatonin 3 mg Tablet 3 mg PO HS RF: 0 mirtazapine 15 mg Tablet 15 mg PO HS RF: 0 Discharge Orders: Discharge Order (Routine); Ordered 01/28/20 Ordered By: Chava Shelton Admission Data Admit Date/Time: 01/25/20 01:09 Attending Provider: Chava Shelton Admit Provider: Nia Ramirez Primary Care Provider: Zach, Other Providers: Aiden Fried ; Nia Ramirez ; Jose Thomson [facility] Other Interventions: Discharge Summary Assessment (RN) Last Done: 01/28/20 11:56 DC Date/Time DO NOT enter until pt leaves facility: 01/28/20 13:18 Coding Level of Care Code D/C Day Management >30 mins Diagnoses Closed right hip fracture S72.001A Encounter type: initial encounter Fall W19.XXXA Encounter type: initial encounter Dementia F03.91 Dementia behavioral disturbance: with behavioral disturbance Dementia type: unspecified type Diabetes mellitus E11.9 Diabetes mellitus type: type 2 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 transplanted heart: [place] heart Associated angina: without angina Hypokalemia E87.6 Hypomagnesemia E83.42 Hypophosphatemia E83.39 Elevated alkaline phosphatase level R74.8 DVT prophylaxis Z29.9
== END 2020-01-28 13:18 | DRG 470 ==
LOC: ED 22:41 → SUATTDRO 01-25 01:09 → 3W 01-25 01:09

== ENCOUNTER 2020-04-16 08:44 | Inpatient (IN) ==
[2020-04-16 09:22] LABS: Basophils # (auto) 0.03 K/uL (0-0.2); Basophils % (auto) 0.5 %; Eosinophils # (auto) 0.23 K/uL (0-0.5); Eosinophils % (auto) 3.9 %; Hematocrit (blood only) 32.3 % (37-47); Hemoglobin 10.4 g/dL (12.0-16.0); Immature Granulocytes # (auto) 0.01 K/uL (0.00-0.02); Immature Granulocytes % (auto) 0.2 %; Lymphocytes # (auto) 0.97 K/uL (1.2-3.4); Lymphocytes % (auto) 16.6 %; Mean Corpuscular Hemoglobin 29.5 pg (25-34); Mean Corpuscular Hgb Conc 32.2 g/dL (32-36); Mean Corpuscular Volume 91.8 fL (80-100); Mean Platelet Volume 9.6 fL (7.4-10.4); Monocytes # (auto) 0.73 K/uL (0.11-0.59); Monocytes % (auto) 12.5 %; Neutrophils # (auto) 3.88 K/uL (1.4-6.5); Neutrophils % (auto) 66.3 %; Platelet Count 395 K/uL (130-400); RDW Coefficient of Variation 14.8 % (11.5-14.5); RDW Standard Deviation 49.9 fL (36.4-46.3); Red Blood Count 3.52 M/uL (4.2-5.4); White Blood Count 5.85 K/uL (4.8-10.8)
--- NOTE | 2020-04-16 09:31 | CT Scan Report ---
CT head/brain wo con CLINICAL HISTORY: Head pain status post trauma COMPARISON STUDY: 02/29/2020 TECHNIQUE: Axial CT of the brain is performed from the vertex to the skull base. IV contrast was not administered for this examination. A dose lowering technique was utilized adhering to the principles of ALARA. CT DOSE: FINDINGS: No intra or extra-axial mass lesions are visualized. There is no CT evidence of acute cortical infarc tion. There is no evidence of midline shift. There is no acute hemorrhage. No calvarial fractures ar e visualized. There are patchy white matter hypodensities likely on a small vessel basis. There is mild ventricular dilatation which is felt to be secondary to volume loss There is no evidence of acute sinusitis IMPRESSION: No acute intracranial findings ACT 112: Negative or not required by law. Electronically signed by: Blue Cherry M.D. 04/16/2020 9:30 AM
--- NOTE | 2020-04-16 09:33 | CT Scan Report ---
CT OF THE CERVICAL SPINE CLINICAL HISTORY: Neck pain status post trauma COMPARISON STUDY: 01/25/2020 CT DOSE: 2926.72 mGy.cm TECHNIQUE: CT scan of the cervical spine was performed from the skull base to the thoracic inlet. Lizzie ges are reviewed in the axial, sagittal, and coronal planes. IV contrast was not administered for thi s examination. A dose lowering technique was utilized adhering to the principles of ALARA. FINDINGS: The visualized portions of the lung apices reveal no evidence of pneumothorax. The prevertebral soft tissues are normal. No fractures or subluxations are visualized. There are multilevel degenerative changes IMPRESSION: No evidence of acute fracture or traumatic subluxation. ACT 112: Negative or not required by law. Electronically signed by: Blue Cherry M.D. 04/16/2020 9:32 AM
--- NOTE | 2020-04-16 09:34 | XRay Report ---
XR chest 1V portable CLINICAL HISTORY: weakness COMPARISON STUDY: 03/27/2020 FINDINGS: The cardiac and mediastinal contours remain stable. There is a left subclavian pacer/defibr illator. There is old left clavicular fracture. There is no focal pulmonary consolidation. There are no pleural effusions. There is stable interstitial thickening.[ IMPRESSION: No active disease in the chest. ACT 112: Negative or not required by law. Electronically signed by: Blue Cherry M.D. 04/16/2020 9:33 AM
[2020-04-16 09:42] LABS: Albumin Level 2.5 gm/dl (3.4-5.0); BUN Creatinine Ratio 24.8 (10-20); Calcium 8.9 mg/dl (8.5-10.1); Creatinine Clr Calc Pharmacy 49.3 ml/min; Est GFR (African American) 82.2; Est GFR (Non-African American) 70.9; Potassium 3.6 mmol/L (3.5-5.1)
[2020-04-16 09:47] LABS: Appearance Urine Clear (Clear); Bilirubin Urine Negative (Negative); Blood Urine Negative (Negative); Color Urine Yellow; Glucose Urine UA Negative (Negative); Ketones Urine Negative (Negative); Leukocyte Esterase Urine Negative (Negative); Nitrite Urine Negative (Negative); Protein Urine Negative (Negative); Specific Gravity Urine 1.011 (1.000-1.030); Urobilinogen Urine Negative (Negative)
[2020-04-16 09:53] LABS: Albumin Globulin Ratio 0.7 (0.9-2); Bilirubin,Total 0.4 mg/dl (0.2-1); Globulin 3.8 gm/dl (2.5-4.0); Thyroid Stimulating Hormone 1.09 uIu/ml (0.300-4.500); Total Protein 6.3 gm/dl (6.4-8.2)
--- NOTE | 2020-04-16 11:24 | History & Physical Report ---
Date of Service April 16, 2020 Assessment & Plan (1) Fall: Secondary to b/l leg swelling (see below) (2) Cellulitis: Possible diagnosis although suspect her erythematous and swelling changes just down to venous insufficiency with hypoalbuminemia. Discussed this with the family and given lack of treatment for venous insufficiency as patient will not wear compression stockings and diet unlikely to improve will start broad spectrum IV antibiotics and monitor for any improvement in her extensive erythema. (3) Leg swelling: Suspect secondary to venous insufficiency and hypoalbuminemia Known diagnosis ischemic cardiomyopathy. No recent echocardiogram on file. No left-sided heart failure suggested with no acute pulmonary edema. Unlikely right-sided heart failure. Will trial small dose of lasix with albumin to assess for improvement and monitor renal function closely. (4) Dementia: Continue mirtazapine, Seroquel. Monitor for delirium (5) DVT prophylaxis: Heparin 5000 units SQ BID Admission and Anticipated Discharge Date Admission Date: April 16, 2020 History of Present Illness Chief Complaint: Fall, bilateral leg swelling [facility] is an 85 year old female with dementia who presents to the ER after recurrent falls at [facility]. Unable to get any history from the patient due to dementia. She was discharged in January after a right hip fracture s/p arthroplasty. She was seen in the ER on March 27, US venous doppler showed no DVT, bilateral LE erythema noted and given ceftriaxone IM and treated with 10 day course of cefdinir. She was seen again 7 days later as legs getting worse and doxycycline course for 10 days. Discussed with nurse over at [facility] who reports no significant improvement of leg swelling or edema with two course of oral antibiotics. Leg swelling initially slowly occurred in right leg first then left ever since her right hip arthroplasty . Erythema followed leg swelling. No fever or chills. Patient has been having recurrent falls suspected to be due to her large leg swelling. Tried lasix but with no significant improvement in leg swelling. Patient non-compliant with compression stockings or AALIYAH wraps. Last fall was last night and unwitnessed. Discussed care with her daughter and given option regarding benefits and risks of trial of IV antibiotics to see if any improvement she understands likely failure of prior antibiotics due to venous insufficiency rather than cellulitis likely. Risks of c. diff, delirium explained and accepted. Her daughter has not seen her mothers legs but does not since her hip fracture her diet has been very poor. Allergies Allergy/AdvReac Type Severity Reaction Status Date / Time aspirin Allergy Severe HIVES/ANAPH Verified 04/16/20 09:42 YLAXIS NSAIDS (Non-Steroidal Allergy Severe HIVES Verified 04/16/20 09:42 Anti-Inflamma Sulfa (Sulfonamide Allergy Intermediate HIVES Verified 04/16/20 09:42 Antibiotics) yellow dye Allergy Mild YELLOW DYE Verified 04/16/20 09:42 #5--HIVES celecoxib [From Celebrex] Allergy Unknown Verified 04/16/20 09:42 metformin Allergy Unknown Verified 04/16/20 09:42 Home Medications Home Medications Medication Instructions Recorded Confirmed Type quetiapine [Seroquel] 25 mg PO TID 11/13/19 04/16/20 History mirtazapine 15 mg PO HS 12/17/19 04/16/20 History acetaminophen 650 mg PO TID PRN 02/29/20 04/16/20 History Saccharomyces boulardii [Florastor] 250 mg PO QAM 04/16/20 04/16/20 History bacitracin 1 applic TOPICAL DAILY 04/16/20 04/16/20 History Past Med/Surg History Medical History (Updated 04/16/20 @ 11:47 by Daren Rodas MD) Acute cholecystitis Bilateral elbow fractures Dementia Diabetes mellitus Fracture, clavicle History of pacemaker Family History Other No significant family history Social History Smoking Status: Never smoker Preferred Language: Kiswahili Communication Ability: Impaired 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: No Beliefs That Will Affect Care: None marital status: / Current Living Situation: Personal Care Facility Current Living Situation Comment: unable to answer questions Other Information That Helps Us Care for You: No Feels Safe at Home: Yes Assistive Devices: Walker Review of Systems Review of Systems: Unobtainable due to cognitive status Physical Exam Constitutional: + not well nourished and no acute distress Eyes: + anicteric sclerae; normal pupil size ENMT: Mouth: oral mucous membranes not dry Neck: normal visual inspection and trachea midline Respiratory: normal respiratory effort Auscultation: lungs clear to auscultation bilaterally (Anteriorly) Cardiovascular: Rate/Rhythm: regular rate and regular rhythm Heart Sounds: no murmur Gastrointestinal (Abdomen): normal bowel sounds, soft, nontender, no hepatosplenomegaly Skin: Erythema and swelling from ankle to mid thigh bilaterally equal with warm to touch. Making a skin over anterior shins. 2x5mm pus pockets just underneath skin layer on anterior right schreiber No areas of open skin to suggest source of infection. Erythema and swelling does not extend beyond ankles Neurologic: moves all extremities, awake and + confused Psychiatric: Orientation: alert (To voice); + not oriented x 3 Eye Contact: + fair eye contact Affect: + flat affect Thought Process: + incoherent thought process and + word salad Genitourinary: no CVA tenderness Results & Data Results & Data ([facility]) Vital Signs (Past 12 Hours) Vital Signs Temp Pulse Pulse Resp BP BP Pulse Ox 04/16/20 10:09 60 14 135/55 L 100 04/16/20 08:45 36.1 C L 62 18 129/[address] head/brain wo con IMPRESSION: No acute intracranial findings CT OF THE CERVICAL SPINE FINDINGS: The visualized portions of the lung apices reveal no evidence of pneumothorax. The prevertebral soft tissues are normal. No fractures or subluxations are visualized. There are multilevel degenerative changes XR chest 1V portable IMPRESSION: No active disease in the chest. ECG Indication: altered mental status Rate (beats per minute): 60 Rhythm: other (Atrial paced rhythm with prolonged AV conduction) Findings: no acute ischemic change Comparison ECG Date: from (March 27, 2020) Change: the following changes noted (Electronic pacemaker replaced sinus rhythm) Code Status & VTE Plan Code Status DNR/DNR confirmed with paperwork from Zach and her daughter VTE Prophylaxis Plan VTE Prophylaxis will be ordered: Yes PG Care Time/CCT Total # of Minutes Spent Total Time Spent with Patient: Total time spent is greater than 50% in coordination of care (as documented) at patient's floor/unit and/or counseling patient: Coding Level of Care Code 80358 OBS Care - Level 2 Diagnoses Fall W19.XXXA Cellulitis L03.119 Laterality: unspecified laterality Site of cellulitis: extremity Site of cellulitis of extremity: lower extremity Leg swelling M79.89 Dementia F03.91 Dementia behavioral disturbance: with behavioral disturbance Dementia type: unspecified type DVT prophylaxis Z29.9 (1) Cellulitis Laterality: unspecified laterality Site of cellulitis: extremity Site of cellulitis of extremity: lower extremity Qualified Code(s): L03.119 - Cellulitis of unspecified part of limb (2) Dementia Dementia behavioral disturbance: with behavioral disturbance Dementia type: unspecified type Qualified Code(s): F03.91 - Unspecified dementia with behavioral disturbance
--- NOTE | 2020-04-16 11:55 | Emergency Department Note ---
Impression & Plan Fall, Cellulitis, Leg swelling, CHI (closed head injury) ED Provider Note INFORMANT: Patient ED PROVIDER(S): Daren Rodas MD CHIEF COMPLAINT: Fall PLAN: Disposition: Admit Condition: Good MEDICAL DECISION MAKING: Patient presented because of a fall. Her head CT and cervical spine CT were negative. The patient's ECG, CBC, chemistry panel and urinalysis did not reveal any significant abnormalities. She does have some mild erythema on both legs. Family and nursing states that her legs are not getting any better despite the oral antibiotics. They are concerned about her frequent falls. They are r equesting admission for further management. Consultation was made with the hospitalist service, Dr. Vasquez. We discussed initiation of antibiotic however he would like to see the patient in consultation first and will determine the course of treatment. Triage Nursing notes reviewed and agree them. Prior medical records reviewed regarding prior ER visits and treatment with doxycycline and cefdinir. Vital Signs: reviewed and remarkable for no significant abnormalities Differential diagnosis: Concussion, contusion, fracture, subdural hematoma, epidural hematoma, intraparenchymal hemorrhage, electrolyte abnormality, UTI, cellulitis, as well as other pathologies. Diagnostics interpreted by me: ECG: Atrial paced rhythm at 60 bpm. Prolonged AV conduction. There are septal Q waves present. There is anterolateral T wave inversions. When compared to March 27, 2020 the anterolateral changes are old. Cardiac Monitoring: Cardiac monitoring ordered by me: The patient was placed on continuous cardiac monitoring and observed. It revealed a paced rhythm at 62 beats per minute without ectopy or evidence of dysrhythmia. Imaging studies: Chest x-ray. Findings: A chest x-ray was performed and revealed no pneumothorax, effusion, infiltrate, pulmonary edema, free air under the diaphragm, or wide mediastinum. Impression: No acute disease. Head CT: A noncontrast CT scan of the head was performed and was negative for tumor, fracture, intracranial hemorrhage, or other acute pathology. CT scan of the cervical spine is negative for fracture dislocation. No acute process. I refer you to the EMR for further details. Consultation(s): Dr. Vasquez, [facility] hospitalist service HPI: The patient is a 85 year old female who presents to the Emergency Room with complaints of a fall. This started sometime last night and was unwitnessed. The patient has a history of falling. She was recently treated for cellulitis of the lower extremities. Nursing staff at her facility note that her legs seem to be getting worse despite the cefdinir and doxycycline previously prescribed. Family is also concerned. Both are requesting admission. The patient has significant dementia and cannot help with the history. History is therefore limited. ROS: Limited secondary to dementia. PAST MEDICAL HISTORY:See Below, Dementia, cellulitis PAST SURGICAL HISTORY:See Below,THR FAMILY HISTORY:See Below SOCIAL HISTORY:See Below, Resides at [facility]. HOME MEDICATIONS:See Below ALLERGIES:See Below VITALS:See Below PHYSICAL EXAMINATION: GENERAL: Awake, alert, mildly agitated appearing, in no distress HENT: Normocephalic, contusion noted to the left frontal region with associated abrasion oropharynx unremarkable. EYES: Normal conjunctiva. Sclera non-icteric. NECK: Inspection normal. Non-tender. Supple. No nuchal rigidity. FROM. No masses. RESPIRATORY: Clear to auscultation. No wheezes. No rales. Normal respiratory effort. CARDIAC: Normal rate. Normal rhythm. No murmurs. No rubs. Extremities warm and well perfused. Pulses equal. No JVD. GI: Soft, non-distended. No tenderness to palpation. No rebound or guarding. No masses. RECTAL: Deferred. MUSCULOSKELETAL: Atraumatic. Chest examination reveals no tenderness. The back is symmetrical on inspection without obvious abnormality. There is no CVA tenderness to palpation. No joint edema. LOWER EXTREMITIES: Calves are equal size bilaterally and non-tender. 1+ bilateral edema. Mild erythematous discoloration bilaterally. NEURO: Demented sensorium. Moving arms and legs spontaneously but not following commands. SKIN: No rash or jaundice noted. Daren Rodas MD Past Med/Surg History Medical History (Updated 04/16/20 @ 11:47 by Daren Rodas MD) Acute cholecystitis Bilateral elbow fractures Dementia Diabetes mellitus Fracture, clavicle History of pacemaker Family History Other No significant family history Social History Smoking Status: Never smoker Preferred Language: Thai Communication Ability: Impaired Hydraulic Riveter Required: No Beliefs That Will Affect Care: None marital status: / Current Living Situation: Personal Care Facility Current Living Situation Comment: unable to answer questions Other Information That Helps Us Care for You: No Feels Safe at Home: Yes Assistive Devices: Walker Allergies Allergies Allergy/AdvReac Type Severity Reaction Status Date / Time aspirin Allergy Severe HIVES/ANAPH Verified 04/16/20 09:42 YLAXIS NSAIDS (Non-Steroidal Allergy Severe HIVES Verified 04/16/20 09:42 Anti-Inflamma Sulfa (Sulfonamide Allergy Intermediate HIVES Verified 04/16/20 09:42 Antibiotics) yellow dye Allergy Mild YELLOW DYE Verified 04/16/20 09:42 #5--HIVES celecoxib [From Celebrex] Allergy Unknown Verified 04/16/20 09:42 metformin Allergy Unknown Verified 04/16/20 09:42 Home Meds Home Medications Medication Instructions Recorded Confirmed quetiapine [Seroquel] 25 mg PO TID 11/13/19 04/16/20 mirtazapine 15 mg PO HS 12/17/19 04/16/20 acetaminophen 650 mg PO TID PRN 02/29/20 04/16/20 Saccharomyces boulardii [Florastor] 250 mg PO QAM 04/16/20 04/16/20 bacitracin 1 applic TOPICAL DAILY 04/16/20 04/16/20 Results & Data (ED) Vital Signs Vital Signs - 24 hr 04/16/20 08:45 04/16/20 10:09 Temperature 36.1 C L Temperature Source Axillary Pulse Rate 62 Pulse Rate [Apical] 60 Pulse Rhythm Regular Pulse Rhythm [Apical] Regular Pulse Strength Normal Pulse Strength [Apical] Normal Respiratory Rate 18 14 Respiratory Effort / Characteristics Non-Labored Spontaneous Non-Labored Spontaneous Respiratory Depth Normal Normal Respiratory Pattern Regular Regular Blood Pressure 129/76 Blood Pressure [Right Arm] 135/55 L Blood Pressure Mean 93 Blood Pressure Mean [Right Arm] 81 Blood Pressure Position Sitting Blood Pressure Position [Right Arm] Lying Pulse Oximetry 100 100 Oxygen Delivery Method Room Air Room Air Sepsis Recent Fever Within 48 Hours No Sepsis New/Unexplained Change in Mental Status No Sepsis Action Taken by Nursing No Action Required Laboratory Data Result diagrams: 04/17/20 06:08 04/17/20 06:08 Lab Results 04/16/20 04/16/20 04/16/20 Range/Units 09:00 09:08 09:08 WBC 5.85 (4.8-10.8) K/uL RBC 3.52 L (4.2-5.4) M/uL Hgb 10.4 L (12.0-16.0) g/dL Hct 32.3 L (37-47) % MCV 91.8 (80-100) fL MCH 29.5 (25-34) pg MCHC 32.2 (32-36) g/dL RDW Std Deviation 49.9 H (36.4-46.3) fL RDW Coeff of Jasen 14.8 H (11.5-14.5) % Plt Count 395 (130-400) K/uL MPV 9.6 (7.4-10.4) fL Immature Gran % (Auto) 0.2 % Neut % (Auto) 66.3 % Lymph % (Auto) 16.6 % [place] % (Auto) 12.5 % Eos % (Auto) 3.9 % Baso % (Auto) 0.5 % Neut # (Auto) 3.88 (1.4-6.5) K/uL Lymph # (Auto) 0.97 L (1.2-3.4) K/uL [place] # (Auto) 0.73 H (0.11-0.59) K/uL Eos # (Auto) 0.23 (0-0.5) K/uL Baso # (Auto) 0.03 (0-0.2) K/uL Immature Gran # (Auto) 0.01 (0.00-0.02) K/uL Sodium 140 (136-145) mmol/L Potassium 3.6 (3.5-5.1) mmol/L Chloride 108 H (98-107) mmol/L Carbon Dioxide 26 (21-32) mmol/L Anion Gap 6.0 (3-11) BUN 19 H (7-18) mg/dl Creatinine 0.77 (0.6-1.2) mg/dl Est Cr Clr Drug Dosing 49.3 ml/min Est GFR ( Amer) 82.2 Est GFR (Non-Af Amer) 70.9 BUN/Creatinine Ratio 24.8 H (10-20) Glucose 91 (70-99) mg/dl Calcium 8.9 (8.5-10.1) mg/dl Total Bilirubin 0.4 (0.2-1) mg/dl AST 22 (15-37) U/L ALT 13 (12-78) U/L Alkaline Phosphatase 182 H (45-117) U/L Total Protein 6.3 L (6.4-8.2) gm/dl Albumin 2.5 L (3.4-5.0) gm/dl Globulin 3.8 (2.5-4.0) gm/dl Albumin/Globulin Ratio 0.7 L (0.9-2) TSH 1.090 (0.300-4.500) uIu/ml Urine Color Yellow Urine Appearance Clear (Clear) Urine pH 6.0 (4.5-7.5) Ur Specific [place] 1.011 (1.000-1.030) Urine Protein Negative (Negative) Urine Glucose (UA) Negative (Negative) Urine Ketones Negative (Negative) Urine Blood Negative (Negative) Urine Nitrite Negative (Negative) Urine Bilirubin Negative (Negative) Urine Urobilinogen Negative (Negative) Ur Leukocyte Esterase Negative (Negative) Administered Medications Heparin Sodium (Porcine) (Heparin Sod 5,000 Unit/0.5 Ml Vial) 5,000 units SQ Q12 [facility] Stop: 05/16/20 20:59 Last Admin: 04/17/20 08:44 Dose: 5,000 units Documented by: [id number] Cosigned by: [id number] Admin: 04/16/20 22:32 Dose: 5,000 units Documented by: [id number] Cosigned by: [id number] Vancomycin HCl 750 mg/ Sodium (Chloride) 265 mls @ 125 mls/hr IV Q12H [facility] Stop: 04/24/20 01:59 Last Infusion: 04/17/20 08:27 Dose: 0 mls/hr Documented by: [id number] Admin: 04/17/20 06:19 Dose: 125 mls/hr Documented by: [id number] Piperacillin Sod/Tazobactam (Sod 3.375 gm/ Dextrose) 115 mls @ 28.75 mls/hr IV Q8H [facility]; Protocol Stop: 04/23/20 19:59 Last Infusion: 04/17/20 12:39 Dose: 0 mls/hr Documented by: [id number] Admin: 04/17/20 08:39 Dose: 28.8 mls/hr Documented by: [id number] Infusion: 04/17/20 04:35 Dose: 0 mls/hr Documented by: [id number] Admin: 04/17/20 00:26 Dose: 28.8 mls/hr Documented by: [id number] Mirtazapine (Mirtazapine Tab 15 Mg Tab) 15 mg PO HS FIORELLA Stop: 05/16/20 20:59 Last Admin: 04/16/20 22:32 Dose: 15 mg Documented by: [id number] Quetiapine Fumarate (Quetiapine Fumarate 25 Mg Tablet) 25 mg PO TID FIORELLA Stop: 05/16/20 13:59 Last Admin: 04/17/20 14:35 Dose: 25 mg Documented by: [id number] Admin: 04/17/20 08:43 Dose: 25 mg Documented by: [id number] Admin: 04/16/20 22:32 Dose: 25 mg Documented by: [id number] Admin: 04/16/20 15:13 Dose: 25 mg Documented by: [id number] Discontinued Medications Furosemide 40 mg/ Albumin (Human) 54 mls @ 54 mls/hr IV ONE ONE Stop: 04/16/20 14:59 Last Infusion: 04/16/20 18:53 Dose: 0 mls/hr Documented by: [id number] Infusion: 04/16/20 17:56 Dose: 54 mls/hr Documented by: [id number] Infusion: 04/16/20 16:29 Dose: 0 mls/hr Documented by: [id number] Admin: 04/16/20 15:46 Dose: 54 mls/hr Documented by: [id number] Vancomycin HCl 1,250 mg/ (Sodium Chloride) 275 mls @ 125 mls/hr IV NOW ONE Stop: 04/16/20 16:26 Last Infusion: 04/16/20 20:10 Dose: 0 mls/hr Documented by: [id number] Admin: 04/16/20 17:58 Dose: 125 mls/hr Documented by: [id number] Piperacillin Sod/Tazobactam (Sod 3.375 gm/ Dextrose) 100 ml in 115 mls @ 230 mls/hr IV NOW ONE Stop: 04/16/20 14:59 Last Infusion: 04/16/20 18:53 Dose: 0 mls/hr Documented by: [id number] Admin: 04/16/20 17:59 Dose: 230 mls/hr Documented by: [id number] Discharge Plan Visit Data Chief Complaint: Fall Stated Complaint: fall/ head pain ED Provider: Daren Rodas Discharge Problem: Fall, Cellulitis, Leg swelling, CHI (closed head injury) Patient Disposition: Admitted As Inpatient Discharge Instructions Interventions: ED Discharge Assessment Last Done: 04/16/20 12:45
--- NOTE | 2020-04-16 12:10 | Ultrasound Report ---
US venous doppler LE BI CLINICAL HISTORY: Bilateral leg swelling COMPARISON STUDY: 03/27/2020 FINDINGS: Grayscale color flow and Doppler spectral waveform analysis was performed. On the right, the veins are fully compressible from the groin to the popliteal vein. There is normal augmentation. There is normal color flow within the proximal trifurcation veins of the left calf. On the left, there is a small greater saphenous vein thrombus within 5 mm of the common femoral vein saphenous junction. No thrombus is visualized within the common femoral vein, superficial femoral vei n, popliteal vein, or proximal trifurcation veins of the calf. Note is made of bilateral lower extremity soft tissue edema. IMPRESSION: 1. No evidence of right lower extremity DVT 2. No evidence of left lower extremity DVT. A small thrombus was however visualized within the greate r saphenous vein, 5 mm from the common femoral vein and saphenous junction. ACT 112: Negative or not required by law. Electronically signed by: Blue Cherry M.D. 04/16/2020 12:09 PM
[2020-04-16] MEDS ORDERED: VANCOMYCIN CONSULT ACTIVE PRN (13:21)
[2020-04-16] MEDS ORDERED: ACETAMINOPHEN 325 MG TAB PO PRN (13:21)
[2020-04-16] MEDS ORDERED: ONDANSETRON INJ 2 MG/ML 2 ML VIAL IV PRN (13:21)
[2020-04-16] MEDS ORDERED: PIPERACILL/TAZOBAC CONSULT ACTIVE PRN (13:21)
[2020-04-16] MEDS ORDERED: ALBUMIN 25% 50 ML with FUROSEMIDE 40 MG IV ONE (14:00)
--- NOTE | 2020-04-16 14:02 | Pharmacy Report ---
Pharmacy Abx Initial Consult - Date of Service April 16, 2020 - Pharmacy Dosing Scope Date of Consult: [] Consultation requested by: [] Pharmacy is consulted to initiate [] IV/PO dosing therapy, order appropriate labs and adjust drug dose/frequency. - Subjective The patient is a 85 year old F admitted on 04/16/20 11:07. - Objective Height: 5 ft 3 in Weight: 65 kg Vital Signs (Past 12hrs): Vital Signs Temp Pulse Pulse Resp BP BP Pulse Ox 04/16/20 12:25 63 14 121/53 L 100 04/16/20 10:09 60 14 135/55 L 100 04/16/20 08:45 36.1 C L 62 18 129/76 100 Lab Results (24hrs): Laboratory Tests (24 Hours) 04/16/20 04/16/20 09:08 09:08 WBC 5.85 Neut # (Auto) 3.88 Creatinine 0.77 Est Cr Clr Drug Dosing 49.3 Micro Results: 04/16/20 11:28 Aerobic Blood Culture - Pending Blood Anaerobic Blood Culture - Pending 04/16/20 09:08 Aerobic Blood Culture - Pending Blood Anaerobic Blood Culture - Pending - Risk Factors for Resistance * Resident in a shelter or extended-care facility * Antimicrobial use within the last 90 days (cefdinir and doxycycline) - Assessment & Plan Assessment 85 year old F admitted with frequent falls. Being treated for cellulitis as an outpatient. Appearance is not improving -- expand coverage while inpatient. Plan vancomycin/Zosyn for treatment of cellulitis Vancomycin IV Patient meets criteria for vancomycin AUC dosing nomogram AUC/RJ is the preferred PK/PD target for vancomycin * Target AUC/RJ = 400-600 * AUC guided dosing is effective and associated with decreased risk of nephrotoxicity Piperacillin/tazobactam * 3.375 g bolus administered over 30 minutes, then 3.375 g IV extended infusion every 8 hours for CrCl greater than 20 mL/min Pharmacy will continue to follow and will adjust dose/frequency as necessary. Thank you.
[2020-04-16] MEDS ORDERED: VANCOMYCIN HCL 1,250 MG in SODIUM CHLORIDE 0.9% 250 ML IV ONE (14:15)
[2020-04-16] MEDS ORDERED: PIPERACILLIN/TAZOBACTAM 3.375 GM in DEXTROSE 5% 100 ML/100 ML BAG IV ONE (14:30)
[2020-04-16] MEDS: QUETIAPINE FUMARATE 25 MG TABLET PO SCH ×2 (15:13→22:32)
[2020-04-16] MEDS ORDERED: Nursing to Pharmacy Communication SCH (15:45)
[2020-04-16] MEDS: HEPARIN SOD 5,000 UNIT/0.5 ML VIAL SQ SCH (22:32)
[2020-04-16] MEDS: MIRTAZAPINE TAB 15 MG TAB PO SCH (22:32)
[2020-04-17] MEDS: PIPERACILLIN/TAZOBACTAM 3.375 GM in DEXTROSE 5% 100 ML IV SCH ×3 (00:26→16:29)
--- NOTE | 2020-04-17 05:50 | Electrocardiogram Report ---
Test Reason : Blood Pressure : / mmHG Vent. Rate : 060 BPM Atrial Rate : 060 BPM P-R Int : 226 ms QRS Dur : 078 ms QT Int : 434 ms P-R-T Axes : 062 -23 171 degrees QTc Int : 434 ms Atrial-paced rhythm with prolonged AV conduction Septal infarct (cited on or before 08-DEC-2014) Abnormal ECG When compared with ECG of 27-MAR-2020 15:14, Electronic atrial pacemaker has replaced Sinus rhythm Questionable change in initial forces of Anteroseptal leads Confirmed by Gary De Jesus ([id number]) on 04/17/2020 5:49:57 AM Referred By: REFERRED SELF Confirmed By:Gary De Jesus
[2020-04-17] MEDS: VANCOMYCIN HCL 750 MG in SODIUM CHLORIDE 0.9% 250 ML IV SCH ×2 (06:19→18:32)
[2020-04-17 06:21] LABS: Basophils # (auto) 0.01 K/uL (0-0.2); Basophils % (auto) 0.2 %; Eosinophils # (auto) 0.31 K/uL (0-0.5); Eosinophils % (auto) 5.5 %; Hematocrit (blood only) 32.1 % (37-47); Hemoglobin 10.4 g/dL (12.0-16.0); Immature Granulocytes # (auto) 0.01 K/uL (0.00-0.02); Immature Granulocytes % (auto) 0.2 %; Lymphocytes # (auto) 1.27 K/uL (1.2-3.4); Lymphocytes % (auto) 22.5 %; Mean Corpuscular Hemoglobin 29.9 pg (25-34); Mean Corpuscular Hgb Conc 32.4 g/dL (32-36); Mean Corpuscular Volume 92.2 fL (80-100); Mean Platelet Volume 9.5 fL (7.4-10.4); Monocytes % (auto) 10.6 %; Neutrophils # (auto) 3.44 K/uL (1.4-6.5); Platelet Count 329 K/uL (130-400); RDW Coefficient of Variation 14.7 % (11.5-14.5); Red Blood Count 3.48 M/uL (4.2-5.4); White Blood Count 5.64 K/uL (4.8-10.8)
[2020-04-17 06:58] LABS: BUN Creatinine Ratio 17.2 (10-20); C Reactive Protein 1.33 mg/dl (0-0.29); Calcium 8.4 mg/dl (8.5-10.1); Est GFR (African American) 63.7; Potassium 3.6 mmol/L (3.5-5.1)
[2020-04-17] MEDS: QUETIAPINE FUMARATE 25 MG TABLET PO SCH ×4 (08:43→21:11)
[2020-04-17] MEDS: HEPARIN SOD 5,000 UNIT/0.5 ML VIAL SQ SCH ×2 (08:44→20:59)
[2020-04-17] MEDS: MIRTAZAPINE TAB 15 MG TAB PO SCH ×2 (20:59→21:11)
--- NOTE | 2020-04-17 21:17 | Hospitalist Progress Note ---
Date of Service April 17, 2020 Assessment & Plan (1) Cellulitis: Question b/l LEs. I am not fully certain if she has cellulitis vs simply chronic venous stasis changes. I am leaning towards latter as she recently had 2 oral abx as outpatient. WBC count normal, sed rate normal, no fever, eating well, etc. d/c zosyn. reasonable to cont vanco for now but consider stopping such. repeat exam on Monday to determine abx. (2) Encephalopathy acute: Uncertain if what I am seeing is baseline dementia vs a superimposed encephalopathy on her dementia. Follow. Serial exams. Cont seroquel. If there is encephalopathy could have underlying infectious process -- check COVID-19 since she is from a PCF; check rapid flu. Given the mild RUQ pain and known gallstones check RUQ u/s for acute cholecystitis. (3) Fall: multiple falls over the summer by history including one leading to right hip fracture in January. suspect falls are due to advancing dementia. check b12 level to be complete. fortunately CT head and c-spine w/o fracture. (4) Superficial thrombosis of left lower extremity: LEFT greater saphenous vein thrombosis, within 5mm of the femoral- saphenous junction. Although superficial, this thrombosis has greater chance of propagation since it is so close to the femoral vein. Typically would Rx this with lovenox or low-dose xarelto. However, she has had numerous falls and has had prior SDH by report. Safest option may be to HOLD on anticoagulation right now and repeat a LLE doppler in 1 week. If there is any worsening of this clot then would start anticoagulation then. (5) Edema: likely venous insufficiency. low albumin could contribute. last echo was in 2014 showing EF of 40-45%; however, patient otherwise has no signs of decompensated CHF causing the edema. The saphenous vein thrombus is small and I doubt is causing her edema. follow for now. consider compression. (6) Chronic anemia: check b12/folate/iron studies in am. (7) History of pacemaker: noted (8) Dementia: appears advanced (9) Diabetes mellitus: previous a1c's about 7%. however, glucose readings thus far very normal. will simply control with diet alone. (10) GERD (gastroesophageal reflux disease): not on meds for such (11) Depression: remeron (12) Hyperlipidemia: not on meds for such (13) Abnormal biliary HIDA scan: 09/2015 - abnormal HIDA with chronic cholecystitis. ??mild RUQ pain on exam today?? in light of presentation will obtain RUQ u/s to rule out acute cholecystitis (doubt such, however). (14) Chronic kidney disease, stage 3a: baseline CrCl 40s/low 50s repeat BMP am (15) DVT prophylaxis: heparin 5000 BID Man - son - extensively updated by phone total time about 40 minutes - reviewing records, ordering tests, speaking with son, etc remains DNR change observation status to full admission status obtain PT/OT consults I certify that the inpatient services were ordered in accordance with Medicare regulations governing the order. This includes certification that hospital inpatient services are reasonable and necessary and in the case of services not specified as inpatient-only under 42 CFR 419.22(n), that they are appropriately provided as inpatient services in accordance to with the 2-midnight benchmark under 43 CFR 412.3(e) Admission and Anticipated Discharge Date Admission Date: April 17, 2020 Subjective patient lying in bed comfortably. she was talking insensibly the entire visit. unable to obtain any meaningful history or ROS. staff report no issues today. ate 100% of breakfast and lunch. Review of Systems Review of Systems: Unobtainable due to cognitive status Physical Exam Constitutional: + altered mental status; no acute distress ENMT: external ear and nose normal, oropharynx normal Respiratory: normal respiratory effort, lungs clear to auscultation Auscultation: + diminished lung sounds (modest - bases ) Cardiovascular: Rate/Rhythm: regular rate and regular rhythm Heart Sounds: normal S1 and normal S2; no murmur Vessels: posterior tibial pulses present and dorsalis pedis pulses present; no JVD Extremities: + edema (trace b/l ) Gastrointestinal (Abdomen): Inspection/Auscultation: normal bowel sounds; abdomen not distended Percussion/Palpation: + abdomen tender (?RUQ - but inconsistent after palpating the area multiple times ) and abdomen soft; no hepatosplenomegaly Skin: venous stasis changes b/l shins; there is symmetric mild erythema of the distal shins with mild warmth. uncertain if due to venous stasis or cellulitis. nontender to palpation. abrasion left forehead. Psychiatric: Orientation: alert and oriented to person (responds to name only ); + not oriented to place and + not oriented to time Results & Data Results & Data ([facility]) Vital Signs (Past 12 Hours) Vital Signs Temp Pulse Resp BP Pulse Ox 04/17/20 15:54 36.9 C 65 16 109/51 L 96 Laboratory Results Laboratory Results - last 24 hr 04/17/20 04/17/20 04/17/20 06:08 06:08 06:08 WBC 5.64 RBC 3.48 L Hgb 10.4 L Hct 32.1 L MCV 92.2 MCH 29.9 MCHC 32.4 RDW Std Deviation 50.0 H RDW Coeff of Jasen 14.7 H Plt Count 329 MPV 9.5 Immature Gran % (Auto) 0.2 Neut % (Auto) 61.0 Lymph % (Auto) 22.5 [place] % (Auto) 10.6 Eos % (Auto) 5.5 Baso % (Auto) 0.2 Neut # (Auto) 3.44 Lymph # (Auto) 1.27 [place] # (Auto) 0.60 H Eos # (Auto) 0.31 Baso # (Auto) 0.01 Immature Gran # (Auto) 0.01 ESR 20 Sodium 141 Potassium 3.6 Chloride 108 H Carbon Dioxide 29 Anion Gap 4.0 BUN 16 Creatinine 0.95 Est Cr Clr Drug Dosing 40.0 Est GFR ( Amer) 63.7 Est GFR (Non-Af Amer) 55.0 BUN/Creatinine Ratio 17.2 Glucose 85 Calcium 8.4 L C-Reactive Protein 1.33 H COVID-19 Eval Order Influenza Type A (PCR) Influenza Type B (PCR) 04/17/20 04/17/20 20:00 20:00 WBC RBC Hgb Hct MCV MCH MCHC RDW Std Deviation RDW Coeff of Jasen Plt Count MPV Immature Gran % (Auto) Neut % (Auto) Lymph % (Auto) [place] % (Auto) Eos % (Auto) Baso % (Auto) Neut # (Auto) Lymph # (Auto) [place] # (Auto) Eos # (Auto) Baso # (Auto) Immature Gran # (Auto) ESR Sodium Potassium Chloride Carbon Dioxide Anion Gap BUN Creatinine Est Cr Clr Drug Dosing Est GFR ( Amer) Est GFR (Non-Af Amer) BUN/Creatinine Ratio Glucose Calcium C-Reactive Protein COVID-19 Eval Order Pending Influenza Type A (PCR) Neg for Influ A Influenza Type B (PCR) Neg for Influ B PG Care Time/CCT Total # of Minutes Spent Total Time Spent with Patient: Total time spent is greater than 50% in coordination of care (as documented) at patient's floor/unit and/or counseling patient: Coding Level of Care Code 00171 Subseq Hosp Care Lvl 3 Diagnoses Cellulitis L03.119 Site of cellulitis: extremity Laterality: unspecified laterality Site of cellulitis of extremity: lower extremity Encephalopathy acute G93.40 Fall W19.XXXD Encounter type: subsequent encounter Superficial thrombosis of left lower extremity I82.812 Edema R60.9 Chronic anemia D64.9 History of pacemaker Z95.0 Dementia F03.91 Dementia behavioral disturbance: with behavioral disturbance Dementia type: unspecified type Diabetes mellitus E11.9 Diabetes mellitus type: type 2 Diabetes mellitus retirement insulin use: without retirement use Diabetes mellitus complication status: without complication GERD (gastroesophageal reflux disease) K21.9 Esophagitis presence: esophagitis presence not specified Depression F32.9 Depression Type: major depressive disorder Major depression recurrence: unspecified whether recurrent Active/Remission status: remission status unspecified Hyperlipidemia E78.5 Hyperlipidemia type: unspecified Abnormal biliary HIDA scan R94.8 Chronic kidney disease, stage 3a N18.31 DVT prophylaxis Z29.9 (1) Cellulitis Site of cellulitis: extremity Laterality: unspecified laterality Site of cellulitis of extremity: lower extremity Qualified Code(s): L03.119 - Cellulitis of unspecified part of limb (2) Fall Encounter type: subsequent encounter Qualified Code(s): W19.XXXD - Unspecified fall, subsequent encounter (3) Dementia Dementia behavioral disturbance: with behavioral disturbance Dementia type: unspecified type Qualified Code(s): F03.91 - Unspecified dementia with behavioral disturbance (4) Diabetes mellitus Diabetes mellitus type: type 2 Diabetes mellitus retirement insulin use: without retirement use Diabetes mellitus complication status: without complication Qualified Code(s): E11.9 - Type 2 diabetes mellitus without complications (5) GERD (gastroesophageal reflux disease) Esophagitis presence: esophagitis presence not specified Qualified Code(s): K21.9 - Gastro-esophageal reflux disease without esophagitis (6) Depression Depression Type: major depressive disorder Major depression recurrence: unspecified whether recurrent Active/Remission status: remission status unspecified Qualified Code(s): F32.9 - Major depressive disorder, single episode, unspecified (7) Hyperlipidemia Hyperlipidemia type: unspecified Qualified Code(s): E78.5 - Hyperlipidemia, unspecified
[2020-04-17 21:18] LABS: Influenza A virus by PCR Neg for Influ A (Neg); Influenza B virus by PCR Neg for Influ B (Neg)
[2020-04-18] MEDS ORDERED: VANCOMYCIN TROUGH ONE (05:30)
[2020-04-18] MEDS: VANCOMYCIN HCL 750 MG in SODIUM CHLORIDE 0.9% 250 ML IV SCH (06:07)
[2020-04-18 06:27] LABS: BUN Creatinine Ratio 14.2 (10-20); Calcium 8.8 mg/dl (8.5-10.1); Creatinine Clr Calc Pharmacy 47.5 ml/min; Est GFR (African American) 78.5; Est GFR (Non-African American) 67.7; Potassium 3.9 mmol/L (3.5-5.1)
[2020-04-18 06:33] LABS: Ferritin 103.6 ng/ml (8-388)
--- NOTE | 2020-04-18 09:01 | Pharmacy Report ---
Pharmacy Abx Dose Progress Nt - Date of Service April 18, 2020 - Pharmacy Dosing Scope The patient is currently receiving the following antimicrobial agents per Pharmacy consult: VANCOMYCIN 750mg IV/PO every 12 hours - Objective Height: 5 ft 3 in Weight: 65 kg Vital Signs (Past 12hrs): Vital Signs Temp 04/18/20 00:23 36.6 C Lab Results (24hrs): Laboratory Tests (24 Hours) 04/18/20 04/18/20 05:42 05:42 Creatinine 0.80 Est Cr Clr Drug Dosing 47.5 Vancomycin Trough 14.5 Micro Results: 04/16 - MRSA Nasal swab (-) 04/16 - Blood cx x 2 - pending - Risk Factors for Resistance * Resident in a retirement or extended-care facility * Antimicrobial use within the last 90 days (Doxycycline, Cefdinir) - Assessment & Plan Assessment 85 year old F receiving VANCOMYCIN for treatment of possible B/L cellulitis. Day # 3 of antimicrobial therapy Plan Vancomycin IV * Trough level of 14.5 mcg/mL is therapeutic. * Continue dose of 750mg IV every 12 hours. * Goal trough level for cellulitis : ~15 to 20 mcg/mL * Will recheck a trough level in a few days if Vancomycin is continued. Pharmacy will continue to follow and will adjust dose/frequency as necessary. Thank you.
[2020-04-18 09:46] LABS: Folate (Folic Acid) 7.02 ng/ml (>5.38)
[2020-04-18] MEDS: QUETIAPINE FUMARATE 25 MG TABLET PO SCH ×3 (11:09→21:04)
[2020-04-18] MEDS: HEPARIN SOD 5,000 UNIT/0.5 ML VIAL SQ SCH ×2 (11:10→21:05)
--- NOTE | 2020-04-18 11:34 | Ultrasound Report ---
ABDOMINAL ULTRASOUND, RIGHT UPPER QUADRANT HISTORY: altered, RUQ pain, gallstones; cholecystitis?. COMPARISON: Abdomen and pelvis CT 09/17/2019. FINDINGS: Pancreas: The pancreatic head and tail are obscured by overlying bowel gas. The remaining portions of the pancreas are within normal limits. Liver: Unremarkable. Gallbladder: No gallbladder wall thickening. A 1.2 cm gallstone. CBD: 7 mm in diameter. This is considered to be within the range of normal limits given the patient's age. Right kidney: No hydronephrosis. IMPRESSION: 1. Cholelithiasis. No gallbladder wall thickening. ACT 112: Negative or not required by law. Electronically signed by: Naseem Akbar M.D. 04/18/2020 11:33 AM
--- NOTE | 2020-04-18 17:13 | Hospitalist Progress Note ---
Date of Service April 18, 2020 Assessment & Plan (1) Cellulitis: Legs are significantly improved in 48 hours with Zosyn and vancomycin. Unfortunately last dose of vancomycin was cut short as IV infiltrated. Given dramatic improvements, questionable diagnosis initially and lack of suitable outpatient antibiotic (already failed doxycycline, allergy to Bactrim) will hold further antibiotics and monitor for worsening. Continued inpatient admission over the next 2 days to make sure her erythema does not get worse. In order to achieve this we must keep her legs elevated at all times and preferably with ONEL hose to ensure it is not edema that is causing her erythema. Alternative possibility for erythema would be bacitracin use which we have discontinued since admission. (2) Edema: likely venous insufficiency. low albumin could contribute. Mild increase in Cr with lasix and lack of pulmonary edema use suggests not hypervolemic. No further lasix warranted. last echo was in 2014 showing EF of 40-45%; however, patient otherwise has no signs of decompensated CHF causing the edema. ONEL hose. (3) Encephalopathy acute: Resolved. Patient at baseline. (4) Fall: multiple falls over the summer by history including one leading to right hip fracture in January. suspect falls are due to advancing dementia. B12 [address] head and c-spine w/o fracture. (5) Superficial thrombosis of left lower extremity: LEFT greater saphenous vein thrombosis, within 5mm of the femoral- saphenous junction. Although superficial, this thrombosis has greater chance of propagation since it is so close to the femoral vein. Typically would Rx this with lovenox or low-dose xarelto. However, she has had numerous falls and has had prior SDH by report. Safest option may be to HOLD on anticoagulation right now and repeat a LLE doppler in 1 week. If there is any worsening of this clot then would start anticoagulation then. (6) Chronic anemia: B12/folate WNL Transferrin sats 18% Suspect anemia of chronic disease. Appears stable. MCVnormocytic. (7) History of pacemaker: noted (8) Dementia: appears advanced (9) Diabetes mellitus: previous a1c's about 7%. however, glucose readings thus far very normal. will simply control with diet alone. (10) GERD (gastroesophageal reflux disease): not on meds for such (11) Depression: remeron (12) Hyperlipidemia: not on meds for such (13) Abnormal biliary HIDA scan: Ultrasound gallbladder negative for gallbladder wall thickening. (14) Chronic kidney disease, stage 3a: baseline CrCl 40s/low 50s (15) DVT prophylaxis: heparin 5000 BID Admission and Anticipated Discharge Date Admission Date: April 17, 2020 Anticipated date of discharge: 04/20/20 Subjective Patient appears pleasantly confused. Unable to accurately answer any questions. Eating breakfast. Compared to her admission she appears to be significantly improved although I suspect she fluctuates quite a lot during the day. Notably has excessive own delirium and becomes occasionally aggressive at night (notably she refused her 25 mg Seroquel with slightly made her worse last night). Her legs appear vastly improved from admission. There is negligible erythema present at this stage which appears out of proportion to her improved swelling. Difficult to tell whether this is from antibiotics or being in bed and having her feet elevated (additionally she had 1 dose of 40 mg IV Lasix on admission). Blood cultures negative. Tried calling both her son and daughter with contact numbers listed but was unab le to get though. Review of Systems Review of Systems: All systems reviewed & are unremarkable except as noted in HPI & below (unclear who accurate answers are) Physical Exam Constitutional: + not well nourished and no acute distress Eyes: + anicteric sclerae; normal pupil size ENMT: Mouth: oral mucous membranes not dry Neck: normal visual inspection and trachea midline Respiratory: normal respiratory effort, lungs clear to auscultation Cardiovascular: Rate/Rhythm: regular rate and regular rhythm Heart Sounds: no murmur Gastrointestinal (Abdomen): normal bowel sounds, soft, nontender, no hepatosplenomegaly Musculoskeletal: no cyanosis or clubbing, extremities motor strength 5/5 Skin: Erythema has completely resolved in her legs. Slightly more wrinkled skin than previous. Neurologic: moves all extremities, awake and + confused (suspected at baseline) Psychiatric: Orientation: alert (To voice); + not oriented x 3 Eye Contact: + fair eye contact Affect: + flat affect Thought Process: + thought process not clear or coherent Genitourinary: no CVA tenderness Results & Data Results & Data ([facility]) Vital Signs (Past 12 Hours) Vital Signs Temp Pulse Resp BP Pulse Ox 04/18/20 15:15 36.6 C 67 16 112/60 97 PG Care Time/CCT Total # of Minutes Spent Total Time Spent with Patient: Total time spent is greater than 50% in coordination of care (as documented) at patient's floor/unit and/or counseling patient: Coding Level of Care Code 69624 Subseq Hosp Care Lvl 2 Diagnoses Cellulitis L03.119 Laterality: unspecified laterality Site of cellulitis: extremity Site of cellulitis of extremity: lower extremity Edema R60.9 Encephalopathy acute G93.40 Fall W19.XXXD Encounter type: subsequent encounter Superficial thrombosis of left lower extremity I82.812 Chronic anemia D64.9 History of pacemaker Z95.0 Dementia F03.91 Dementia behavioral disturbance: with behavioral disturbance Dementia type: unspecified type Diabetes mellitus E11.9 Diabetes mellitus complication status: without complication Diabetes mellitus residential insulin use: without residential use Diabetes mellitus type: type 2 GERD (gastroesophageal reflux disease) K21.9 Esophagitis presence: esophagitis presence not specified Depression F32.9 Active/Remission status: remission status unspecified Depression Type: major depressive disorder Major depression recurrence: unspecified whether recurrent Hyperlipidemia E78.5 Hyperlipidemia type: unspecified Abnormal biliary HIDA scan R94.8 Chronic kidney disease, stage 3a N18.31 DVT prophylaxis Z29.9 (1) Diabetes mellitus Diabetes mellitus complication status: without complication Diabetes mellitus rodent exterminator insulin use: without rodent exterminator use Diabetes mellitus type: type 2 Qualified Code(s): E11.9 - Type 2 diabetes mellitus without complications (2) Cellulitis Laterality: unspecified laterality Site of cellulitis: extremity Site of cellulitis of extremity: lower extremity Qualified Code(s): L03.119 - Cellulitis of unspecified part of limb (3) Dementia Dementia behavioral disturbance: with behavioral disturbance Dementia type: unspecified type Qualified Code(s): F03.91 - Unspecified dementia with behavioral disturbance (4) Depression Active/Remission status: remission status unspecified Depression Type: major depressive disorder Major depression recurrence: unspecified whether recurrent Qualified Code(s): F32.9 - Major depressive disorder, single episode, unspecif ied (5) Hyperlipidemia Hyperlipidemia type: unspecified Qualified Code(s): E78.5 - Hyperlipidemia, unspecified (6) GERD (gastroesophageal reflux disease) Esophagitis presence: esophagitis presence not specified Qualified Code(s): K21.9 - Gastro-esophageal reflux disease without esophagitis (7) Fall Encounter type: subsequent encounter Qualified Code(s): W19.XXXD - Unspecified fall, subsequent encounter
[2020-04-18] MEDS: MIRTAZAPINE TAB 15 MG TAB PO SCH (21:04)
[2020-04-19] MEDS: QUETIAPINE FUMARATE 25 MG TABLET PO SCH ×3 (08:30→20:32)
[2020-04-19] MEDS: HEPARIN SOD 5,000 UNIT/0.5 ML VIAL SQ SCH ×3 (08:31→20:36)
--- NOTE | 2020-04-19 15:46 | Hospitalist Progress Note ---
Date of Service April 19, 2020 Assessment & Plan (1) Cellulitis: Legs are significantly improved in 48 hours with Zosyn and vancomycin. Unfortunately last dose of vancomycin was cut short as IV infiltrated. Given dramatic improvements, questionable diagnosis initially and lack of suitable outpatient antibiotic (already failed doxycycline, allergy to Bactrim) will hold further antibiotics and monitor for worsening - today lower extremities without erythema Continued inpatient admission over the next 2 days to make sure her erythema does not get worse. In order to achieve this we must keep her legs elevated at all times and preferably with ONEL hose to ensure it is not edema that is causing her erythema. Alternative possibility for erythema would be bacitracin use which we have discontinued since admission. Will hold off on ordering further blood work unless patient is clinically worsening to avoid unnecessary agitation (2) Edema: likely venous insufficiency. low albumin could contribute. Mild increase in Cr with lasix and lack of pulmonary edema use suggests not hypervolemic. No further lasix warranted. last echo was in 2014 showing EF of 40-45%; however, patient otherwise has no signs of decompensated CHF causing the edema. Continue ONEL hose. (3) Encephalopathy acute: Resolved. Patient at baseline. (4) Fall: multiple falls over the summer by history including one leading to right hip fracture in January. suspect falls are due to advancing dementia. B12 [address] head and c-spine w/o fracture. (5) Superficial thrombosis of left lower extremity: LEFT greater saphenous vein thrombosis, within 5mm of the femoral- saphenous junction. Although superficial, this thrombosis has greater chance of propagation since it is so close to the femoral vein. Typically would Rx this with lovenox or low-dose xarelto. However, she has had numerous falls and has had prior SDH by report. Safest option may be to HOLD on anticoagulation right now and repeat a LLE doppler in 1 week. If there is any worsening of this clot then would start anticoagulation then. (6) Chronic anemia: B12/folate WNL Transferrin sats 18% Suspect anemia of chronic disease. Appears stable. MCVnormocytic. (7) History of pacemaker: noted (8) Dementia: Advanced (9) Diabetes mellitus: previous a1c's about 7%. however, glucose readings thus far very normal. will simply control with diet alone. (10) GERD (gastroesophageal reflux disease): not on meds for such (11) Depression: remeron (12) Hyperlipidemia: not on meds for such (13) Abnormal biliary HIDA scan: Ultrasound gallbladder negative for gallbladder wall thickening. (14) Chronic kidney disease, stage 3a: baseline CrCl 40s/low 50s (15) DVT prophylaxis: heparin 5000 BID - patient was agitated with nurse and refused - ok to hold if making patient too agitated. If patient's legs look ok tomorrow may be able to discharge. [facility] patient [facility] if she can ambulate with walker. If not may want to see if a palliative discussion might be in order for patient. Her son reports that she really doesn't benefit from rehab at this point with her cognitive decline. I wonder if coming back and forth to the hospital is really in the patient's best interest given her severe dementia. Admission and Anticipated Discharge Date Admission Date: April 17, 2020 Subjective Ms. Dorado is very confused. Unable to participate in review of systems. Agitated, would not allow me to listen to her with my stethoscope. Physical Exam Physical Exam: General: no distress Eyes: normal inspection, PERLL Respiratory: no respiratory distress, no accessory muscle use Cardiac: lower extremities with trace pitting edema GI/: active bowel sounds, no abd pain or tenderness, soft, non distended Extremities: normal range of motion, normal strength, non tender Neuro/Psych: disoriented, agitated, moves all extremities Skin: normal color, dry, no erythema lower extremities Results & Data Results & [facility] ([facility]) Vital Signs (Past 12 Hours) Vital Signs Temp Pulse Resp BP Pulse Ox 04/19/20 07:16 36.7 C 74 18 154/67 H 97 PG Care Time/CCT Total # of Minutes Spent Total Time Spent with Patient: Total time spent is greater than 50% in coordination of care (as documented) at patient's floor/unit and/or counseling patient: Coding Level of Care Code 75692 Subseq Hosp Care Lvl 2 Diagnoses Cellulitis L03.119 Laterality: unspecified laterality Site of cellulitis: extremity Site of cellulitis of extremity: lower extremity Edema R60.9 Encephalopathy acute G93.40 Fall W19.XXXD Encounter type: subsequent encounter Superficial thrombosis of left lower extremity I82.812 Chronic anemia D64.9 History of pacemaker Z95.0 Dementia F03.91 Dementia behavioral disturbance: with behavioral disturbance Dementia type: unspecified type Diabetes mellitus E11.9 Diabetes mellitus complication status: without complication Diabetes mellitus long-term insulin use: without long-term use Diabetes mellitus type: type 2 GERD (gastroesophageal reflux disease) K21.9 Esophagitis presence: esophagitis presence not specified Depression F32.9 Active/Remission status: remission status unspecified Depression Type: major depressive disorder Major depression recurrence: unspecified whether recurrent Hyperlipidemia E78.5 Hyperlipidemia type: unspecified Abnormal biliary HIDA scan R94.8 Chronic kidney disease, stage 3a N18.31 DVT prophylaxis Z29.9 (1) Diabetes mellitus Diabetes mellitus complication status: without complication Diabetes mellitus terminal gauger insulin use: without terminal gauger use Diabetes mellitus type: type 2 Qualified Code(s): E11.9 - Type 2 diabetes mellitus without complications (2) Cellulitis Laterality: unspecified laterality Site of cellulitis: extremity Site of cellulitis of extremity: lower extremity Qualified Code(s): L03.119 - Cellulitis of unspecified part of limb (3) Dementia Dementia behavioral disturbance: with behavioral disturbance Dementia type: unspecified type Qualified Code(s): F03.91 - Unspecified dementia with behavioral disturbance (4) Depression Active/Remission status: remission status unspecified Depression Type: major depressive disorder Major depression recurrence: unspecified whether recurrent Qualified Code(s): F32.9 - Major depressive disorder, single episode, unspecified (5) Hyperlipidemia Hyperlipidemia type: unspecified Qualified Code(s): E78.5 - Hyperlipidemia, unspecified (6) GERD (gastroesophageal reflux disease) Esophagitis presence: esophagitis presence not specified Qualified Code(s): K21.9 - Gastro-esophageal reflux disease without esophagitis (7) Fall Encounter type: subsequent encounter Qualified Code(s): W19.XXXD - Unspecified fall, subsequent encounter
[2020-04-19] MEDS: MIRTAZAPINE TAB 15 MG TAB PO SCH (20:32)
[2020-04-20] MEDS: QUETIAPINE FUMARATE 25 MG TABLET PO SCH ×3 (09:45→13:35)
[2020-04-20] MEDS: HEPARIN SOD 5,000 UNIT/0.5 ML VIAL SQ SCH (09:49)
[2020-04-20] MEDS: cephALEXin 500 MG CAP PO SCH ×2 (13:19→13:34)
--- NOTE | 2020-04-20 13:34 | Discharge Summary ---
Date of Service April 20, 2020 Admission HPI Per Admitting Provider Tess Dorado is an 85 year old female with dementia who presents to the ER after recurrent falls at [facility]. Unable to get any history from the patient due to dementia. She was discharged in January after a right hip fracture s/p arthroplasty. She was seen in the ER on March 27, US venous doppler showed no DVT, bilateral LE erythema noted and given ceftriaxone IM and treated with 10 day course of cefdinir. She was seen again 7 days later as legs getting worse and doxycycline course for 10 days. Discussed with nurse over at [facility] who reports no significant improvement of leg swelling or edema with two course of oral antibiotics. Leg swelling initially slowly occurred in right leg first then left ever since her right hip arthroplasty . Erythema followed leg swelling. No fever or chills. Patient has been having recurrent falls suspected to be due to her large leg swelling. Tried lasix but with no significant improvement in leg swelling. Patient non-compliant with compression stockings or AALIYAH wraps. Last fall was last night and unwitnessed. Discussed care with her daughter and given option regarding benefits and risks of trial of IV antibiotics to see if any improvement she understands likely failure of prior antibiotics due to venous insufficiency rather than cellulitis likely. Risks of c. diff, delirium explained and accepted. Her daughter has not seen her mothers legs but does not since her hip fracture her diet has been very poor. Admission Exam Per Admitting Provider Constitutional: + not well nourished and no acute distress Eyes: + anicteric sclerae; normal pupil size ENMT: Mouth: oral mucous membranes not dry Neck: normal visual inspection and trachea midline Respiratory: normal respiratory effort Auscultation: lungs clear to auscultation bilaterally (Anteriorly) Cardiovascular: Rate/Rhythm: regular rate and regular rhythm Heart Sounds: no murmur Gastrointestinal (Abdomen): normal bowel sounds, soft, nontender, no hepatosplenomegaly Skin: Erythema and swelling from ankle to mid thigh bilaterally equal with warm to touch. Making a skin over anterior shins. 2x5mm pus pockets just underneath skin layer on anterior right schreiber No areas of open skin to suggest source of infection. Erythema and swelling does not extend beyond ankles Neurologic: moves all extremities, awake and + confused Psychiatric: Orientation: alert (To voice); + not oriented x 3 Eye Contact: + fair eye contact Affect: + flat affect Thought Process: + incoherent thought process and + word salad Genitourinary: no CVA tenderness Principal Diagnosis Fall, Cellulitis, Edema Discharge Exam Constitutional WD/WN, vitals as above comfortable; no acute distress Eyes EOM intact bilaterally; no conjunctival abnormality ENMT external ear and nose normal, oropharynx normal Neck normal visual inspection Respiratory normal respiratory effort, lungs clear to auscultation no respiratory distress Cardiovascular Rate/Rhythm: regular rate and regular rhythm Extremities: + edema (trace edema b/l LE) Gastrointestinal (Abdomen) Inspection/Auscultation: abdomen normal to inspection; abdomen not distended Musculoskeletal no cyanosis or clubbing, extremities motor strength 5/5 Skin no rashes, warm and dry Neurologic moves all extremities and awake Psychiatric Orientation: alert, oriented to person and cooperative; + not oriented to place and + not oriented to time Lymphatic no cervical or axillary lymphadenopathy Discharge Data Allergies Allergy/AdvReac Type Severity Reaction Status Date / Time aspirin Allergy Severe HIVES/ANAPH Verified 04/16/20 09:42 YLAXIS NSAIDS (Non-Steroidal Allergy Severe HIVES Verified 04/16/20 09:42 Anti-Inflamma Sulfa (Sulfonamide Allergy Intermediate HIVES Verified 04/16/20 09:42 Antibiotics) yellow dye Allergy Mild YELLOW DYE Verified 04/16/20 09:42 #5--HIVES celecoxib [From Celebrex] Allergy Unknown Verified 04/16/20 09:42 metformin Allergy Unknown Verified 04/16/20 09:42 Consultations 04/16/20 10:31 ED Decision to Admit Stat Ordered Studies 04/16/20 08:49 CT cervical spine wo con Stat CT head/brain wo con Stat CXR 04/16/20 11:07 US venous doppler LE BI Routine 04/18/20 08:36 US gallbladder Routine Hospital Course (1) Cellulitis: Admitted for falls secondary to LE edema/cellulitis. Failed outpatient doxycycline. Initially placed on Zosyn/Vancomycin and had significant improvement with utilization of ONEL hose -- questionable if edema causing erythema/swelling or if possibly related to bacitracin use outpatient that had been discontinued on admission. Transitioned to keflex to complete course 10 days total. Rec continued utilization of onel hose/elevation of legs as much as possible Of note, patient with US LLE with LEFT greater saphenous vein thrombosis, within 5mm of the femoral-saphenous junction which could also worsen above. Given hx SDH and hx numerous falls, avoided anticoagulation at this time but would consider initiation if repeat scan unchanged/worsened and felt safe to do so at that time. Legs without warmth/pain, minimal erythema to medial aspect b/l LE prior to discharge, significantly improved as above Non-febrile, WBC 5.6k. Held off on ordering further blood work as patient continued to improve and wanted to avoid unnecessary agitation COVID-19 screening NEGATIVE prior to discharge back to [facility] (2) Edema: likely venous insufficiency along with poor nutirional status (low albumin) 99% on RA -- no evidence of pulmonary edema/wheezing on exam. Had received dose of IV lasix with bump in Cr, suggesting no CHF as cause of edema Last ECHO 2014 with EF 40-45%; no other signs of decomp CHF causing edema Rec continued use of ONEL hose at discharge (3) Encephalopathy acute: Resolved. Patient at baseline. (4) Fall: multiple falls over the summer by history including one leading to right hip fracture in January. suspect falls are due to advancing dementia. B12 [id number] head and c-spine w/o bleed or fracture (5) Superficial thrombosis of left lower extremity: LEFT greater saphenous vein thrombosis, within 5mm of the femoral- saphenous junction. Although superficial, this thrombosis has greater chance of propagation since it is so close to the femoral vein. Typically would Rx this with Lovenox or low-dose Xarelto -- However, she has had numerous falls and has had prior SDH by report. Rec HOLDing on anticoagulation right now and repeat a LLE Doppler in 1 week and following up with PCP outpatient for further discussion risk/benefit of anticoagulation (6) Chronic anemia: B12/folate WNL Transferrin sats 18% Suspect anemia of chronic disease. Appears stable. MCVnormocytic. (7) History of pacemaker: noted (8) Dementia: Advanced (9) Diabetes mellitus: previous a1c's about 7%. BSGs acceptable (10) GERD (gastroesophageal reflux disease): not on meds for such (11) Depression: remeron (12) Hyperlipidemia: not on meds for such (13) Abnormal biliary HIDA scan: Ultrasound gallbladder negative for gallbladder wall thickening. (14) Chronic kidney disease, stage 3a: At baseline. Bbaseline CrCl 40s/low 50s (15) DVT prophylaxis: heparin 5000 BID - patient was agitated with nurse and refused Discharged back to [facility] with Keflex, but suspect improvement with onel hose/elevation as above. Per previous conversations with son, patient doesn't really benefit from rehab. Patient may benefit from further palliative discussion at [facility] given severe dementia, advancing, and likely repeat hospitalizations worsening. Total Time Total Time Spent Total Time Spent (In Minutes): 75 Discharge Plan Discharge Items Patient Disposition: Trans Resident Long-Term Care Reason For Visit: cellulitis, frequent falls Discharge Diagnosis: Cellulitis, Edema Goals: You have been hospitalized for an acute medical problem. During your stay at [facility], we have made an effort to correct the problem that brought you to the hospital while keeping you as comfortable as possible. Medications were used to bring your condition under control and your discharge instructions will include directions for any medications you should take after leaving the hospital. Please make sure you see your Primary Care Provider as part of your follow up plan. Activity: As commented below Activity Comment: keep legs elevated as much as possible with ONEL hose for support Non-emergency contact: Primary Care Provider Call non-emergency contact if: you have any medication questions, your symptoms worsen and your pain is not controlled [facility] - Diet: Carb Consistent or DM2 Diet Texture: Dental soft (bite-sized) Ambulatory Orders: US venous doppler LE (Routine) Timeframe: 1 Week Location: Determined by Patient Ordered By: Michelle Peterson Attending Provider Instructions: You have been hospitalized for lower extremity cellulitis. You were treated with IV antibiotics and are being sent with continued prescription for keflex, although it is felt that the increased edema/erythema may have been partially influenced by dependent edema as well as bacitracin use prior to admission. Please complete course of keflex as ordered. You were also found to have a superficial blood clot in your left leg. Superficial clots are not typically anticoagulated, however given location it is recommended. However, given your history of brain bleed and frequent falls, it is not considered safe at this time to start and it is recommended that you have repeat ultrasound of your left leg in 1 week as an outpatient and follow up with your primary care provider prior to initiating anticoagulation. An order has been placed in the system to have done in the next week at the facility of your choosing. It is recommended that you continue to push oral fluids and remain hydrated. If your cognitive status continues to decline, it may be beneficial to speak with hospice at [facility] in the future. Please return to the emergency department with any worsening swelling/pain/erythema, shortness of breath, or for any other symptoms that are concerning for you. It has been a pleasure being a part of the medical team providing for you while you have been in the hospital. Take care! Pending Studies at Discharge: No Stand-Alone Forms: My [facility] Skilled Items Patient informed of condition?: Yes DNR: Yes Discharge Level of Care: Other Communicable Disease: No Discharge Prognosis: Improving Lines: None Urinary Catheter: No Medications and DC Order Prescriptions: Continued quetiapine [Seroquel] 25 mg tablet 25 mg PO TID RF: 0 acetaminophen 160 mg/5 mL (5 mL) Solution 650 mg PO TID PRN (Reason: Pain) RF: 0 Saccharomyces boulardii [Florastor] 250 mg capsule 250 mg PO QAM RF: 0 mirtazapine 15 mg Tablet 15 mg PO HS RF: 0 Discontinued bacitracin 500 unit/gram Ointment 1 applic TOPICAL DAILY RF: 0 Discharge Orders: Discharge Order (Routine); Ordered 04/20/20 Ordered By: Paige Nicole Admission Data Admit Date/Time: 04/17/20 16:47 Attending Provider: Paige Nicole Admit Provider: Antoine Vasquez [facility] Other Providers: Antoine Vasquez Other Interventions: Discharge Summary Assessment (RN) Last Done: 04/20/20 16:09 Supervising Physician Co-Signing Physician Notes PA Supervision Note: I personally saw and examined the patient. I verified all chau points and agree with JOHNATHON Hartmann with the following exceptions and/or additions: Pt confused, keeps asking when she is leaving. Not able to get meaningful history otherwise but appears comfortable AAO x 1, NAD EOMI, anicteric sclerae RRR no mgr CTAB no wcr, breathing unlabored Abd +BS sof t TN ND Ext 1+ edema, no erythema 85 yo female here with LE cellulitis and edema-treatment as above stable for dc to [facility] Coding Level of Care Code D/C Day Management >30 mins Diagnoses Cellulitis L03.119 Laterality: unspecified laterality Site of cellulitis: extremity Site of cellulitis of extremity: lower extremity Edema R60.9 Encephalopathy acute G93.40 Fall [id number].XXXD Encounter type: subsequent encounter Superficial thrombosis of left lower extremity I82.812 Chronic anemia D64.9 History of pacemaker Z95.0 Dementia F03.91 Dementia behavioral disturbance: with behavioral disturbance Dementia type: unspecified type Diabetes mellitus E11.9 Diabetes mellitus complication status: without complication Diabetes mellitus manager intermediate insulin use: without mcfp use Diabetes mellitus type: type 2 GERD (gastroesophageal reflux disease) K21.9 Esophagitis presence: esophagitis presence not specified Depression F32.9 Active/Remission status: remission status unspecified Depression Type: major depressive disorder Major depression recurrence: unspecified whether recurrent Hyperlipidemia E78.5 Hyperlipidemia type: unspecified Abnormal biliary HIDA scan R94.8 Chronic kidney disease, stage 3a N18.31 DVT prophylaxis Z29.9
[2020-04-20 15:33] LABS: Basophils # (auto) 0.02 K/uL (0-0.2); Basophils % (auto) 0.4 %; Eosinophils # (auto) 0.34 K/uL (0-0.5); Eosinophils % (auto) 6.1 %; Hematocrit (blood only) 35.9 % (37-47); Hemoglobin 11.3 g/dL (12.0-16.0); Immature Granulocytes # (auto) 0.01 K/uL (0.00-0.02); Immature Granulocytes % (auto) 0.2 %; Lymphocytes % (auto) 28.7 %; Mean Corpuscular Hemoglobin 29.4 pg (25-34); Mean Corpuscular Hgb Conc 31.5 g/dL (32-36); Mean Corpuscular Volume 93.2 fL (80-100); Mean Platelet Volume 9.6 fL (7.4-10.4); Neutrophils # (auto) 3.11 K/uL (1.4-6.5); Neutrophils % (auto) 55.6 %; Platelet Count 326 K/uL (130-400); RDW Standard Deviation 51.4 fL (36.4-46.3); Red Blood Count 3.85 M/uL (4.2-5.4); White Blood Count 5.58 K/uL (4.8-10.8)
[2020-04-20 15:50] LABS: BUN Creatinine Ratio 18.1 (10-20); Calcium 8.9 mg/dl (8.5-10.1); Creatinine Clr Calc Pharmacy 48.1 ml/min; Est GFR (African American) 79.7; Est GFR (Non-African American) 68.7; Potassium 4.2 mmol/L (3.5-5.1)
== END 2020-04-20 16:23 | disposition home or self-care (01) | DRG 603 ==
LOC: 3E 08:44 → ED 08:44 → SUATTDRO 11:07 → 3E 12:45 → SUATTDRO 04-17 16:47